=== PATIENT | female | born 1995 | race Caucasian/White ===

== ENCOUNTER 2018-08-18 19:36 | Emergency (ER) | payer SELFPAY ==
[~2018-08-18] VITALS: Ht 167.6 cm; Wt 98.0 kg
[2018-08-18] MEDS ORDERED: ALBUTEROL SUL0.083 % IN (21:36)
[2018-08-18] MEDS ORDERED: COMBIVENT RESPIMAT IN (21:36)
[2018-08-18 21:50] VITALS: BP 128/77
== END 2018-08-18 22:00 | disposition home or self-care (01) | DRG 203 ==
LOC: ED 19:36
DX: J45.909 Unspecified asthma, uncomplicated (principal); F17.200 Nicotine dependence, unspecified, uncomplicated; R06.02 Shortness of breath; R05 Cough

== ENCOUNTER 2018-08-31 07:44 | Emergency (ER) | payer MEDICARE ==
[~2018-08-31] VITALS: Ht 167.6 cm; Wt 92.0 kg
[~2018-08-31 07:44] MED LIST: ALBUTEROL SUL0.083 % IN; COMBIVENT RESPIMAT IN
[2018-08-31 08:16] LABS: HEMATOCRIT 47.1 % (37.0-47.0); HEMOGLOBIN 15.1 g/dl (12.0-16.0); IMMATURE GRANULOCYTES 0.4 % (0.0-5.0); MEAN CELL VOLUME 93.3 fL CALC (80.0-100.0); MEAN CORPUSCULAR HGB 29.9 pG CALC (26.0-32.0); MEAN CORPUSCULAR HGB CONC 32.1 g/L CALC (32.0-36.0); NEUT# 11.43 thou/uL (2.00-7.15); RED BLOOD COUNT 5.05 mill/uL (4.20-5.60); RED CELL DISTRI WIDTH 12.7 % (11.5-15.5)
[2018-08-31 08:40] LABS: HCG SERUM/URINE (NEG/POS) NEGATIVE (NEGATIVE)
[2018-08-31 08:44] LABS: ALBUMIN 4.6 g/dL (3.2-5.0); ALKALINE PHOSPHATASE 110 u/l (38-126); ANION GAP 17 (6-22 (CALC)); BILIRUBIN, TOTAL 0.5 mg/dL (0.0-1.4); BUN 9 mg/dL (7-17); BUN/CREATININE RATIO 11 (12-20 (CALC)); CARBON DIOXIDE 24 mmol/l (22-30); CHLORIDE 104 mmol/l (95-108); CREATININE 0.8 mg/dL (0.5-1.0); GFR > 60 ML/MIN (>=60 (CALC)); GFR FOR AFR.AMER. > 60 ML/MIN (>=60 (CALC)); POTASSIUM 4.4 mmol/l (3.5-5.1); SGOT/AST 32 u/l (14-36); SODIUM 141 mmol/l (137-146); TOTAL PROTEIN 8.3 g/dL (6.3-8.2)
[2018-08-31] MEDS ORDERED: PREDNISONE50 MG PO (09:32)
[2018-08-31] MEDS ORDERED: ALBUTEROL SUL0.083 % IN (09:32)
[2018-08-31] MEDS ORDERED: LEVAQUIN750 MG PO (09:32)
[2018-08-31 10:03] VITALS: BP 122/67
== END 2018-08-31 10:03 | disposition home or self-care (01) ==
LOC: ED 07:44
PROVIDERS: Family Medicine
DX: J18.9 Pneumonia, unspecified organism (principal); B27.90 Infectious mononucleosis, unspecified without complication; J45.901 Unspecified asthma with (acute) exacerbation; F17.200 Nicotine dependence, unspecified, uncomplicated

== ENCOUNTER 2018-09-20 12:19 | Emergency (ER) | payer MEDICARE ==
[~2018-09-20] VITALS: Ht 167.6 cm; Wt 100.0 kg
[~2018-09-20 12:19] MED LIST changes: +LEVAQUIN750 MG PO; +PREDNISONE50 MG PO
[2018-09-20 13:01] LABS: HEMATOCRIT 47.3 % (37.0-47.0); HEMOGLOBIN 15.2 g/dl (12.0-16.0); IMMATURE GRANULOCYTES 0.3 % (0.0-5.0); MEAN CELL VOLUME 93.7 fL CALC (80.0-100.0); MEAN CORPUSCULAR HGB 30.1 pG CALC (26.0-32.0); MEAN CORPUSCULAR HGB CONC 32.1 g/L CALC (32.0-36.0); NEUT# 9.59 thou/uL (2.00-7.15); RED BLOOD COUNT 5.05 mill/uL (4.20-5.60); RED CELL DISTRI WIDTH 12.7 % (11.5-15.5)
[2018-09-20 13:28] LABS: ALBUMIN 4.6 g/dL (3.2-5.0); ALKALINE PHOSPHATASE 124 u/l (38-126); ANION GAP 15 (6-22 (CALC)); BILIRUBIN, TOTAL 0.5 mg/dL (0.0-1.4); BUN 7 mg/dL (7-17); BUN/CREATININE RATIO 9 (12-20 (CALC)); CARBON DIOXIDE 24 mmol/l (22-30); CHLORIDE 107 mmol/l (95-108); CREATININE 0.7 mg/dL (0.5-1.0); GFR > 60 ML/MIN (>=60 (CALC)); GFR FOR AFR.AMER. > 60 ML/MIN (>=60 (CALC)); POTASSIUM 4.3 mmol/l (3.5-5.1); SGOT/AST 28 u/l (14-36); SODIUM 142 mmol/l (137-146); TOTAL PROTEIN 8.5 g/dL (6.3-8.2)
[2018-09-20 15:23] LABS: BARBITURATES NEGATIVE (NEGATIVE); COCAINE NEGATIVE (NEGATIVE); METHADONE NEGATIVE (NEGATIVE); OXCYCODONE NEGATIVE (NEGATIVE); TETRAHYDROCANNABIONOL NEGATIVE (NEGATIVE); TRICYLIC ANTIDEPRESSANTS NEGATIVE (NEGATIVE)
[2018-09-20] MEDS ORDERED: ALBUTEROL SUL0.083 % IN (17:05)
[2018-09-20] MEDS ORDERED: NIFEDIPINE30 MG PO (17:06)
[2018-09-20 17:49] VITALS: BP 117/60
[2018-09-20] MEDS ORDERED: MEDDOSEPAK PO (18:24)
[2018-09-20] MEDS ORDERED: ZITHROMAX250 MG PO (18:24)
== END 2018-09-20 18:25 | disposition left against medical advice (07) ==
LOC: ED 12:19
PROVIDERS: Emergency Medicine
DX: J45.901 Unspecified asthma with (acute) exacerbation (principal); J06.9 Acute upper respiratory infection, unspecified; Z91.19 Patient's noncompliance with other medical treatment and regimen; R91.8 Other nonspecific abnormal finding of lung field; R00.0 Tachycardia, unspecified; R06.02 Shortness of breath
CPT/HCPCS: J3475; Q9967

== ENCOUNTER 2018-09-30 02:09 | Emergency (ER) | payer MEDICARE ==
[~2018-09-30] VITALS: Ht 167.6 cm; Wt 95.0 kg
[~2018-09-30 02:09] MED LIST changes: +MEDDOSEPAK PO; +NIFEDIPINE30 MG PO; +ZITHROMAX250 MG PO
[2018-09-30 02:36] LABS: HEMATOCRIT 44.3 % (37.0-47.0); IMMATURE GRANULOCYTES 0.8 % (0.0-5.0); MEAN CELL VOLUME 94.9 fL CALC (80.0-100.0); MEAN CORPUSCULAR HGB CONC 31.6 g/L CALC (32.0-36.0); RED BLOOD COUNT 4.67 mill/uL (4.20-5.60)
[2018-09-30 02:50] LABS: ALBUMIN 4.4 g/dL (3.2-5.0); ALKALINE PHOSPHATASE 85 u/l (38-126); ANION GAP 23 (6-22 (CALC)); BILIRUBIN, TOTAL 0.3 mg/dL (0.0-1.4); BUN 9 mg/dL (7-17); BUN/CREATININE RATIO 11 (12-20 (CALC)); CARBON DIOXIDE 19 mmol/l (22-30); CHLORIDE 107 mmol/l (95-108); CREATININE 0.8 mg/dL (0.5-1.0); GFR > 60 ML/MIN (>=60 (CALC)); GFR FOR AFR.AMER. > 60 ML/MIN (>=60 (CALC)); POTASSIUM 4.4 mmol/l (3.5-5.1); SGOT/AST 36 u/l (14-36); SODIUM 144 mmol/l (137-146); TOTAL PROTEIN 7.9 g/dL (6.3-8.2)
[2018-09-30 02:51] LABS: ETHYL ALCOHOL 0 mg/dl (0-30)
[2018-09-30 02:59] LABS: MYOGLOBIN 163 ng/mL (0 - 62)
[2018-09-30 03:02] LABS: PROTHROMBIN TIME 10.5 SECONDS (9.0-12.5)
[2018-09-30 03:04] LABS: BAND 2 % (0-8); MANUAL DIFFERENTIAL YES; PLATELET COUNT 445 thou/uL (130-400)
[2018-09-30 03:05] LABS: PLATELET ESTIMATE SLIGHT INCREASE
[2018-09-30 05:16] LABS: URINE BILIRUBIN - DIPSTICK NEGATIVE (NEGATIVE); URINE BLOOD DIPSTICK NEGATIVE (NEGATIVE); URINE COLOR YELLOW; URINE GLUCOSE - DIPSTICK NEGATIVE (NEGATIVE); URINE KETONE NEGATIVE (NEGATIVE); URINE LEUK ESTERASE NEGATIVE (NEGATIVE); URINE NITRITE - DIPSTICK NEGATIVE (Negative); URINE PROTEIN - DIPSTICK NEGATIVE (NEG-TRACE); URINE SPECIFIC GRAVITY 1.015; URINE UROBILINOGEN - DIPSTICK 0.2 E.U./dL (0.2)
[2018-09-30 05:36] LABS: BARBITURATES NEGATIVE (NEGATIVE); COCAINE NEGATIVE (NEGATIVE); METHADONE NEGATIVE (NEGATIVE); OXCYCODONE NEGATIVE (NEGATIVE); TETRAHYDROCANNABIONOL NEGATIVE (NEGATIVE); TRICYLIC ANTIDEPRESSANTS NEGATIVE (NEGATIVE)
[2018-09-30 05:46] LABS: URINE RBC 0-2 RBC/hpf (0-5); URINE SQUAMOUS EPITHELIAL CELL RARE EPI/hpf (0-FEW); URINE WBC 0-2 WBC/hpf (0-5)
[2018-09-30 07:12] VITALS: BP 104/72
== END 2018-09-30 06:10 | disposition short-term general hospital (02) ==
LOC: ED 02:09 → EDBD 02:09 → ED 02:09
PROVIDERS: Emergency Medicine
PROC: 0T9B70Z Drainage of Bladder with Drainage Device, Via Natural or Artificial Opening (ICD-10-PCS; principal; 2018-09-30)
DX: R41.82 Altered mental status, unspecified (principal); D72.829 Elevated white blood cell count, unspecified; E87.2 Acidosis; J45.909 Unspecified asthma, uncomplicated; R06.00 Dyspnea, unspecified
CPT/HCPCS: J2060

== ENCOUNTER 2018-10-10 17:49 | Emergency (ER) | payer MEDICARE ==
[~2018-10-10] VITALS: Ht 167.6 cm; Wt 109.0 kg
[2018-10-10 18:18] LABS: HEMATOCRIT 45.3 % (37.0-47.0); HEMOGLOBIN 14.7 g/dl (12.0-16.0); IMMATURE GRANULOCYTES 0.3 % (0.0-5.0); MEAN CELL VOLUME 92.6 fL CALC (80.0-100.0); MEAN CORPUSCULAR HGB 30.1 pG CALC (26.0-32.0); MEAN CORPUSCULAR HGB CONC 32.5 g/L CALC (32.0-36.0); NEUT# 7.24 thou/uL (2.00-7.15); RED BLOOD COUNT 4.89 mill/uL (4.20-5.60); RED CELL DISTRI WIDTH 13.1 % (11.5-15.5)
[2018-10-10 18:29] LABS: ANION GAP 16 (6-22 (CALC)); BUN 15 mg/dL (7-17); BUN/CREATININE RATIO 21 (12-20 (CALC)); CARBON DIOXIDE 22 mmol/l (22-30); CHLORIDE 105 mmol/l (95-108); CREATININE 0.7 mg/dL (0.5-1.0); GFR > 60 ML/MIN (>=60 (CALC)); GFR FOR AFR.AMER. > 60 ML/MIN (>=60 (CALC)); POTASSIUM 4.1 mmol/l (3.5-5.1); SODIUM 139 mmol/l (137-146)
[2018-10-10] MEDS ORDERED: PROAIR HFA108 MCG/AC PO (18:47)
[2018-10-10] MEDS ORDERED: DUONEB IN (18:47)
[2018-10-10] MEDS ORDERED: PREDNISONE50 MG PO (18:48)
[2018-10-10 19:00] VITALS: BP 129/74
== END 2018-10-10 19:16 | disposition home or self-care (01) ==
LOC: ED 17:49
PROVIDERS: Family Medicine
DX: J45.901 Unspecified asthma with (acute) exacerbation (principal); R06.02 Shortness of breath; R05 Cough; R06.82 Tachypnea, not elsewhere classified

== ENCOUNTER 2018-10-14 18:12 | Emergency (ER) | payer MEDICARE ==
[~2018-10-14] VITALS: Ht 167.6 cm; Wt 109.1 kg
[~2018-10-14 18:12] MED LIST changes: +DUONEB IN; +PROAIR HFA108 MCG/AC PO
[2018-10-14 18:54] LABS: HEMATOCRIT 45.5 % (37.0-47.0); HEMOGLOBIN 14.8 g/dl (12.0-16.0); IMMATURE GRANULOCYTES 0.3 % (0.0-5.0); MEAN CELL VOLUME 91.7 fL CALC (80.0-100.0); MEAN CORPUSCULAR HGB 29.8 pG CALC (26.0-32.0); MEAN CORPUSCULAR HGB CONC 32.5 g/L CALC (32.0-36.0); NEUT# 9.25 thou/uL (2.00-7.15); RED BLOOD COUNT 4.96 mill/uL (4.20-5.60)
[2018-10-14 19:20] VITALS: BP 137/60
[2018-10-14 19:24] LABS: URINE BILIRUBIN - DIPSTICK NEGATIVE (NEGATIVE); URINE BLOOD DIPSTICK LARGE (NEGATIVE); URINE COLOR YELLOW; URINE GLUCOSE - DIPSTICK NEGATIVE (NEGATIVE); URINE KETONE NEGATIVE (NEGATIVE); URINE LEUK ESTERASE TRACE (NEGATIVE); URINE NITRITE - DIPSTICK NEGATIVE (Negative); URINE PROTEIN - DIPSTICK TRACE mg/dL (NEG-TRACE); URINE SPECIFIC GRAVITY >=1.030; URINE UROBILINOGEN - DIPSTICK 0.2 E.U./dL (0.2)
[2018-10-14 19:25] LABS: BARBITURATES NEGATIVE (NEGATIVE); COCAINE NEGATIVE (NEGATIVE); METHADONE NEGATIVE (NEGATIVE); OXCYCODONE NEGATIVE (NEGATIVE); TETRAHYDROCANNABIONOL NEGATIVE (NEGATIVE); TRICYLIC ANTIDEPRESSANTS NEGATIVE (NEGATIVE)
[2018-10-14 19:29] LABS: ALBUMIN 4.3 g/dL (3.2-5.0); ALKALINE PHOSPHATASE 91 u/l (38-126); ANION GAP 16 (6-22 (CALC)); BILIRUBIN, TOTAL 0.5 mg/dL (0.0-1.4); BUN 10 mg/dL (7-17); BUN/CREATININE RATIO 16 (12-20 (CALC)); CARBON DIOXIDE 21 mmol/l (22-30); CHLORIDE 107 mmol/l (95-108); CREATININE 0.6 mg/dL (0.5-1.0); GFR > 60 ML/MIN (>=60 (CALC)); GFR FOR AFR.AMER. > 60 ML/MIN (>=60 (CALC)); POTASSIUM 4.3 mmol/l (3.5-5.1); SGOT/AST 22 u/l (14-36); SODIUM 140 mmol/l (137-146)
[2018-10-14 19:42] LABS: URINE BACTERIA FEW hpf; URINE RBC TNTC RBC/hpf (0-5); URINE SQUAMOUS EPITHELIAL CELL FEW EPI/hpf (0-FEW)
== END 2018-10-14 19:20 | disposition left against medical advice (07) ==
LOC: ED 18:12
DX: J45.901 Unspecified asthma with (acute) exacerbation (principal); Z91.19 Patient's noncompliance with other medical treatment and regimen; R06.02 Shortness of breath; F17.200 Nicotine dependence, unspecified, uncomplicated; R00.0 Tachycardia, unspecified
CPT/HCPCS: J3475

== ENCOUNTER 2018-12-14 19:08 | Emergency (ER) | payer MEDICARE, MEDICAID ==
[~2018-12-14] VITALS: Ht 167.6 cm; Wt 104.0 kg
[2018-12-14] MEDS ORDERED: IBUPROFEN600 MG PO (19:28)
[2018-12-14] MEDS ORDERED: TRAMADOL HCL50 MG PO (19:28)
[2018-12-14] MEDS ORDERED: VALTREX1 GM PO (19:28)
[2018-12-14 19:47] VITALS: BP 158/82
== END 2018-12-14 19:47 | disposition home or self-care (01) ==
LOC: ED 19:08
DX: A60.00 Herpesviral infection of urogenital system, unspecified (principal)

== ENCOUNTER 2019-02-28 17:09 | Emergency (ER) | payer MEDICARE, MEDICAID ==
[~2019-02-28] VITALS: Ht 167.6 cm; Wt 109.0 kg
[~2019-02-28 17:09] MED LIST changes: +IBUPROFEN600 MG PO; +TRAMADOL HCL50 MG PO; +VALTREX1 GM PO
[2019-02-28] MEDS ORDERED: SYMBICORT1 AE1 IN (17:47)
[2019-02-28] MEDS ORDERED: ADVAIR DISK1 INH (17:48)
[2019-02-28 18:53] VITALS: BP 108/63
== END 2019-02-28 18:53 | disposition home or self-care (01) ==
LOC: ED 17:09
DX: M79.671 Pain in right foot (principal)

== ENCOUNTER 2019-03-06 15:04 | Emergency (ER) | payer MEDICARE, MEDICAID ==
[~2019-03-06] VITALS: Ht 167.6 cm; Wt 110.0 kg
[~2019-03-06 15:04] MED LIST changes: +ADVAIR DISK1 INH; +SYMBICORT1 AE1 IN
[2019-03-06] MEDS ORDERED: ELIMITE52 TOP (15:35)
[2019-03-06] MEDS ORDERED: DOXYCYCL HYC100 MG PO (15:35)
[2019-03-06 15:42] VITALS: BP 122/66
== END 2019-03-06 15:46 | disposition home or self-care (01) ==
LOC: ED 15:04
DX: B86 Scabies (principal)

== ENCOUNTER 2019-06-08 20:11 | Emergency (ER) | payer MEDICARE, MEDICAID ==
[~2019-06-08] VITALS: Ht 167.6 cm; Wt 109.0 kg
[~2019-06-08 20:11] MED LIST changes: +DOXYCYCL HYC100 MG PO; +ELIMITE52 TOP
[2019-06-08 21:31] LABS: IMMATURE GRANULOCYTES 0.5 % (0.0-5.0); MEAN CELL VOLUME 92.4 fL CALC (80.0-100.0); MEAN CORPUSCULAR HGB 30.8 pG CALC (26.0-32.0); MEAN CORPUSCULAR HGB CONC 33.3 g/L CALC (32.0-36.0); NEUT# 13.89 thou/uL (2.00-7.15); RED BLOOD COUNT 4.22 mill/uL (4.20-5.60); RED CELL DISTRI WIDTH 12.2 % (11.5-15.5)
[2019-06-08 21:32] LABS: URINE BILIRUBIN - DIPSTICK NEGATIVE (NEGATIVE); URINE BLOOD DIPSTICK NEGATIVE (NEGATIVE); URINE COLOR YELLOW; URINE GLUCOSE - DIPSTICK NEGATIVE (NEGATIVE); URINE KETONE NEGATIVE (NEGATIVE); URINE LEUK ESTERASE NEGATIVE (NEGATIVE); URINE NITRITE - DIPSTICK NEGATIVE (Negative); URINE PROTEIN - DIPSTICK NEGATIVE (NEG-TRACE); URINE UROBILINOGEN - DIPSTICK 0.2 E.U./dL (0.2)
[2019-06-08 22:00] VITALS: BP 122/84
[2019-06-08 22:15] LABS: ALBUMIN 3.7 g/dL (3.2-5.0); ANION GAP 14 (6-22 (CALC)); BILIRUBIN, TOTAL 0.3 mg/dL (0.0-1.4); BUN 9 mg/dL (7-17); BUN/CREATININE RATIO 14 (12-20 (CALC)); CARBON DIOXIDE 24 mmol/l (22-30); CHLORIDE 100 mmol/l (95-108); CREATININE 0.7 mg/dL (0.5-1.0); GFR > 60 ML/MIN (>=60 (CALC)); GFR FOR AFR.AMER. > 60 ML/MIN (>=60 (CALC)); POTASSIUM 4.2 mmol/l (3.5-5.1); SGOT/AST 29 u/l (14-36); SODIUM 133 mmol/l (137-146); TOTAL PROTEIN 8.3 g/dL (6.3-8.2)
[2019-06-08 22:16] LABS: ALKALINE PHOSPHATASE 213 u/l (38-126)
[2019-06-08] MEDS ORDERED: PRENATAL1 TA1 PO (22:28)
[2019-06-08] MEDS ORDERED: KEFLEX500 M1 PO (22:28)
== END 2019-06-08 23:07 | disposition home or self-care (01) ==
LOC: ED 20:11
PROVIDERS: Emergency Medicine
DX: R21 Rash and other nonspecific skin eruption (principal); D72.829 Elevated white blood cell count, unspecified; Z32.01 Encounter for pregnancy test, result positive

== ENCOUNTER 2019-08-04 | Emergency (ER) | payer MEDICARE, MEDICAID ==
[~2019-08-04] MED LIST changes: +KEFLEX500 M1 PO; +PRENATAL1 TA1 PO
[2019-08-04 23:34] LABS: URINE BILIRUBIN - DIPSTICK NEGATIVE (NEGATIVE); URINE BLOOD DIPSTICK NEGATIVE (NEGATIVE); URINE CLARITY CLEAR; URINE COLOR YELLOW; URINE GLUCOSE - DIPSTICK NEGATIVE (NEGATIVE); URINE KETONE NEGATIVE (NEGATIVE); URINE LEUK ESTERASE SMALL (Negative); URINE NITRITE - DIPSTICK NEGATIVE (Negative); URINE UROBILINOGEN - DIPSTICK 0.2 E.U./dL (0.2)
[2019-08-04 23:44] LABS: URINE PROTEIN - DIPSTICK NEGATIVE (NEG-TRACE)
[2019-08-04 23:45] LABS: URINE BACTERIA MODERATE hpf; URINE EPITHELIAL CELLS FEW EPI/hpf (0-FEW)
[2019-08-05] MEDS ORDERED: CIPROFLOXACIN500 M1 PO (00:20)
[2019-08-05] MEDS ORDERED: PYRIDIUM200 MG PO (00:20)
== END 2019-08-05 00:50 | disposition home or self-care (01) ==
PROVIDERS: Emergency Medicine
DX: N39.0 Urinary tract infection, site not specified (principal); F17.210 Nicotine dependence, cigarettes, uncomplicated

== ENCOUNTER 2019-09-06 | Emergency (ER) | payer MEDICARE, MEDICAID ==
[~2019-09-06] MED LIST changes: +CIPROFLOXACIN500 M1 PO; +PYRIDIUM200 MG PO
== END 2019-09-06 23:50 | disposition home or self-care (01) ==
DX: S02.2XXA Fracture of nasal bones, initial encounter for closed fracture (principal); F17.210 Nicotine dependence, cigarettes, uncomplicated; Y04.0XXA Assault by unarmed brawl or fight, initial encounter; Y92.89 Other specified places as the place of occurrence of the external cause

== ENCOUNTER 2019-10-06 | Emergency (ER) | payer MEDICARE, MEDICAID ==
[2019-10-06 15:38] LABS: URINE BILIRUBIN - DIPSTICK NEGATIVE (NEGATIVE); URINE BLOOD DIPSTICK TRACE-INTACT (NEGATIVE); URINE COLOR YELLOW; URINE GLUCOSE - DIPSTICK NEGATIVE (NEGATIVE); URINE KETONE TRACE mg/dL (NEGATIVE); URINE LEUK ESTERASE MODERATE (Negative); URINE NITRITE - DIPSTICK NEGATIVE (Negative); URINE PH 5.5 (4.5-8.0); URINE PROTEIN - DIPSTICK TRACE mg/dL (NEG-TRACE); URINE SPECIFIC GRAVITY 1.025; URINE UROBILINOGEN - DIPSTICK 0.2 E.U./dL (0.2)
[2019-10-06 15:41] LABS: URINE CLARITY CLOUDY
[2019-10-06 15:41] LABS: HEMATOCRIT 42.1 % (37.0-47.0); HEMOGLOBIN 13.5 g/dl (12.0-16.0); IMMATURE GRANULOCYTES 0.2 % (0.0-5.0); MEAN CELL VOLUME 93.3 fL CALC (80.0-100.0); MEAN CORPUSCULAR HGB 29.9 pG CALC (26.0-32.0); MEAN CORPUSCULAR HGB CONC 32.1 g/L CALC (32.0-36.0); NEUT# 6.58 thou/uL (2.00-7.15); RED BLOOD COUNT 4.51 mill/uL (4.20-5.60)
[2019-10-06 15:47] LABS: URINE BACTERIA FEW hpf; URINE SQUAMOUS EPITHELIAL CELL MANY EPI/hpf (0-FEW); URINE WBC TNTC WBC/hpf (0-5)
[2019-10-06 15:48] LABS: ALBUMIN 4.3 g/dL (3.2-5.0); BUN 12 mg/dL (7-17); BUN/CREATININE RATIO 16 (12-20 (CALC)); CARBON DIOXIDE 23 mmol/l (22-30); CHLORIDE 109 mmol/l (95-108); CREATININE 0.8 mg/dL (0.5-1.0); GFR > 60 ML/MIN (>=60 (CALC)); GFR FOR AFR.AMER. > 60 ML/MIN (>=60 (CALC)); POTASSIUM 4.3 mmol/l (3.5-5.1); SGOT/AST 26 u/l (14-36); TOTAL PROTEIN 8.4 g/dL (6.3-8.2)
[2019-10-06 15:55] LABS: ALKALINE PHOSPHATASE 69 u/l (38-126); ANION GAP 15 (6-22 (CALC)); BILIRUBIN, TOTAL 0.6 mg/dL (0.0-1.4); SODIUM 143 mmol/l (137-146)
[2019-10-06 16:10] LABS: ACT PARTIAL THROMBO TIME 25.9 SECONDS (20.0-32.5); PROTHROMBIN TIME 10.6 SECONDS (9.0-12.5)
[2019-10-06] MEDS ORDERED: KEFLEX500 M1 PO ×2 (19:35)
[2019-10-06] MEDS ORDERED: FLEXERIL PO (19:37)
== END 2019-10-06 19:56 | disposition home or self-care (01) ==
DX: S00.33XA Contusion of nose, initial encounter (principal); S00.83XA Contusion of other part of head, initial encounter; R10.2 Pelvic and perineal pain; R07.81 Pleurodynia; N39.0 Urinary tract infection, site not specified; F17.200 Nicotine dependence, unspecified, uncomplicated; V18.0XXA Pedal cycle driver injured in noncollision transport accident in nontraffic accident, initial encounter; Y93.55 Activity, bike riding

== ENCOUNTER 2019-10-16 | Emergency (ER) | payer MEDICARE, MEDICAID ==
[~2019-10-16] MED LIST changes: +FLEXERIL PO
== END 2019-10-16 19:47 | disposition home or self-care (01) ==
DX: S00.11XA Contusion of right eyelid and periocular area, initial encounter (principal); S06.9X9A Unspecified intracranial injury with loss of consciousness of unspecified duration, initial encounter; S80.02XA Contusion of left knee, initial encounter; S80.01XA Contusion of right knee, initial encounter; S80.12XA Contusion of left lower leg, initial encounter; S80.11XA Contusion of right lower leg, initial encounter; S40.012A Contusion of left shoulder, initial encounter; S40.011A Contusion of right shoulder, initial encounter; S70.01XA Contusion of right hip, initial encounter; S40.022A Contusion of left upper arm, initial encounter; S00.432A Contusion of left ear, initial encounter; F17.200 Nicotine dependence, unspecified, uncomplicated; Y04.2XXA Assault by strike against or bumped into by another person, initial encounter

== ENCOUNTER 2019-10-21 | Emergency (ER) | payer MEDICARE, MEDICAID | END 2019-10-21 03:55 | disposition home or self-care (01) | PROC: 0HQ2XZZ Repair Right Ear Skin, External Approach (ICD-10-PCS; principal; 2019-10-21) | DX: S01.311A Laceration without foreign body of right ear, initial encounter (principal); F17.200 Nicotine dependence, unspecified, uncomplicated; Y04.0XXA Assault by unarmed brawl or fight, initial encounter; Y92.009 Unspecified place in unspecified non-institutional (private) residence as the place of occurrence of the external cause ==

== ENCOUNTER 2020-03-20 06:30 | Emergency (ER) | payer MEDICARE, MEDICAID ==
[~2020-03-20] VITALS: Ht 167.6 cm; Wt 97.7 kg
[2020-03-20] MEDS ORDERED: VENTOLIN H108 MCG/AC (06:41)
[2020-03-20] MEDS ORDERED: HYDROCO/APAP1 TA9 PO ×2 (08:17)
[2020-03-20 08:27] VITALS: BP 116/71
== END 2020-03-20 09:09 | disposition home or self-care (01) ==
LOC: ED 06:30
PROC: 2W3QX1Z Immobilization of Right Lower Leg using Splint (ICD-10-PCS; principal; 2020-03-20)
DX: S92.344A Nondisplaced fracture of fourth metatarsal bone, right foot, initial encounter for closed fracture (principal); J45.909 Unspecified asthma, uncomplicated; W01.0XXA Fall on same level from slipping, tripping and stumbling without subsequent striking against object, initial encounter; Y92.009 Unspecified place in unspecified non-institutional (private) residence as the place of occurrence of the external cause

== ENCOUNTER 2020-04-07 15:40 | Emergency (ER) | payer MEDICARE, MEDICAID ==
[~2020-04-07] VITALS: Ht 167.6 cm; Wt 100.0 kg
[~2020-04-07 15:40] MED LIST changes: +HYDROCO/APAP1 TA9 PO; +VENTOLIN H108 MCG/AC
[2020-04-07] MEDS ORDERED: ALBUTEROL SUL0.083 % IN (16:20)
[2020-04-07] MEDS ORDERED: VENTOLIN HFA IN ×2 (16:20)
[2020-04-07] MEDS ORDERED: PRENATAL MULTI1 CAP PO ×2 (16:50)
[2020-04-07 16:56] VITALS: BP 97/60
== END 2020-04-07 16:56 | disposition home or self-care (01) ==
LOC: ED 15:40
DX: O99.519 Diseases of the respiratory system complicating pregnancy, unspecified trimester (principal); J45.901 Unspecified asthma with (acute) exacerbation; O99.330 Smoking (tobacco) complicating pregnancy, unspecified trimester; F17.200 Nicotine dependence, unspecified, uncomplicated; T48.6X6A Underdosing of antiasthmatics, initial encounter; Z91.128 Patient's intentional underdosing of medication regimen for other reason; Z3A.00 Weeks of gestation of pregnancy not specified

== ENCOUNTER 2020-04-10 17:35 | Emergency (ER) | payer MEDICARE, MEDICAID ==
[~2020-04-10] VITALS: Ht 167.6 cm; Wt 90.0 kg
[~2020-04-10 17:35] MED LIST changes: +PRENATAL MULTI1 CAP PO; +VENTOLIN HFA IN
[2020-04-10 18:14] LABS: HEMATOCRIT 41.2 % (37.0-47.0); HEMOGLOBIN 13.1 g/dl (12.0-16.0); IMMATURE GRANULOCYTES 0.5 % (0.0-5.0); MEAN CELL VOLUME 93.8 fL CALC (80.0-100.0); MEAN CORPUSCULAR HGB 29.8 pG CALC (26.0-32.0); MEAN CORPUSCULAR HGB CONC 31.8 g/dL CAL (32.0-36.0); NEUT# 12.09 thou/uL (2.00-7.15); RED BLOOD COUNT 4.39 mill/uL (4.20-5.60); RED CELL DISTRI WIDTH 13.2 % (11.5-15.5)
[2020-04-10 18:32] LABS: ANION GAP 14 (6-22 (CALC)); BUN 7 mg/dL (7-17); BUN/CREATININE RATIO 11 (12-20 (CALC)); CARBON DIOXIDE 23 mmol/l (22-30); CHLORIDE 102 mmol/l (95-108); CREATININE 0.6 mg/dL (0.5-1.0); GFR > 60 ML/MIN (>=60 (CALC)); GFR FOR AFR.AMER. > 60 ML/MIN (>=60 (CALC)); POTASSIUM 3.6 mmol/l (3.5-5.1)
[2020-04-10 18:33] LABS: SODIUM 135 mmol/l (137-146)
[2020-04-10] MEDS ORDERED: DECADRON4 MG PO ×2 (18:56)
[2020-04-10] MEDS ORDERED: ZPAK PO (18:56)
[2020-04-10 19:00] VITALS: BP 122/84
== END 2020-04-10 19:20 | disposition home or self-care (01) ==
LOC: ED 17:35
PROVIDERS: Family Medicine
DX: O99.519 Diseases of the respiratory system complicating pregnancy, unspecified trimester (principal); J45.901 Unspecified asthma with (acute) exacerbation; J06.9 Acute upper respiratory infection, unspecified; Z3A.00 Weeks of gestation of pregnancy not specified; Z20.828 Contact with and (suspected) exposure to other viral communicable diseases

== ENCOUNTER 2020-04-30 22:42 | Emergency (ER) | payer MEDICARE, MEDICAID ==
[~2020-04-30] VITALS: Ht 167.6 cm; Wt 90.0 kg
[~2020-04-30 22:42] MED LIST changes: +DECADRON4 MG PO; +ZPAK PO
[2020-04-30 23:15] LABS: IMMATURE GRANULOCYTES 0.4 % (0.0-5.0); MEAN CELL VOLUME 94.1 fL CALC (80.0-100.0); MEAN CORPUSCULAR HGB 31.3 pG CALC (26.0-32.0); MEAN CORPUSCULAR HGB CONC 33.3 g/dL CAL (32.0-36.0); NEUT# 14.61 thou/uL (2.00-7.15); RED BLOOD COUNT 5.05 mill/uL (4.20-5.60); RED CELL DISTRI WIDTH 13.1 % (11.5-15.5)
[2020-04-30 23:16] LABS: URINE BLOOD DIPSTICK NEGATIVE (NEGATIVE); URINE COLOR YELLOW; URINE GLUCOSE - DIPSTICK NEGATIVE (NEGATIVE); URINE KETONE NEGATIVE (NEGATIVE); URINE LEUK ESTERASE NEGATIVE (NEGATIVE); URINE NITRITE - DIPSTICK NEGATIVE (Negative); URINE PH 5.5 (4.5-8.0); URINE PROTEIN - DIPSTICK NEGATIVE (NEG-TRACE); URINE SPECIFIC GRAVITY >=1.030; URINE UROBILINOGEN - DIPSTICK 0.2 E.U./dL (0.2)
[2020-04-30 23:18] LABS: HEMATOCRIT 47.5 % (37.0-47.0); HEMOGLOBIN 15.8 g/dl (12.0-16.0)
[2020-04-30 23:21] LABS: URINE BILIRUBIN - DIPSTICK SMALL (NEGATIVE)
[2020-04-30 23:29] LABS: ALBUMIN 4.4 g/dL (3.2-5.0); ANION GAP 15 (6-22 (CALC)); BILIRUBIN, TOTAL 0.4 mg/dL (0.0-1.4); BUN 8 mg/dL (7-17); BUN/CREATININE RATIO 12 (12-20 (CALC)); CARBON DIOXIDE 21 mmol/l (22-30); CHLORIDE 104 mmol/l (95-108); CREATININE 0.7 mg/dL (0.5-1.0); GFR > 60 ML/MIN (>=60 (CALC)); GFR FOR AFR.AMER. > 60 ML/MIN (>=60 (CALC)); POTASSIUM 3.6 mmol/l (3.5-5.1); SGOT/AST 45 u/l (14-36); SODIUM 137 mmol/l (137-146); TOTAL PROTEIN 8.8 g/dL (6.3-8.2)
[2020-04-30 23:37] LABS: ALKALINE PHOSPHATASE 154 u/l (38-126)
[2020-05-01 00:12] LABS: BETA-HCG, QUANT(RESULT NUMBER) 62064 mIU/mL
[2020-05-01 01:02] LABS: AMYLASE 87 u/l (30-110); LIPASE 77 u/l (23-300)
[2020-05-01 01:18] VITALS: BP 132/71
== END 2020-05-01 01:21 | disposition home or self-care (01) ==
LOC: ED 22:42
PROVIDERS: Emergency Medicine
DX: O26.891 Other specified pregnancy related conditions, first trimester (principal); R10.9 Unspecified abdominal pain; O99.111 Other diseases of the blood and blood-forming organs and certain disorders involving the immune mechanism complicating pregnancy, first trimester; D72.829 Elevated white blood cell count, unspecified; O99.511 Diseases of the respiratory system complicating pregnancy, first trimester; J45.909 Unspecified asthma, uncomplicated; Z3A.12 12 weeks gestation of pregnancy

== ENCOUNTER 2020-05-03 18:58 | Emergency (ER) | payer MEDICARE, MEDICAID ==
[~2020-05-03] VITALS: Ht 167.6 cm; Wt 95.0 kg
[2020-05-03 19:47] LABS: HEMATOCRIT 43.2 % (37.0-47.0); HEMOGLOBIN 14.4 g/dl (12.0-16.0); IMMATURE GRANULOCYTES 0.3 % (0.0-5.0); MEAN CELL VOLUME 94.1 fL CALC (80.0-100.0); MEAN CORPUSCULAR HGB 31.4 pG CALC (26.0-32.0); MEAN CORPUSCULAR HGB CONC 33.3 g/dL CAL (32.0-36.0); NEUT# 17.95 thou/uL (2.00-7.15); RED BLOOD COUNT 4.59 mill/uL (4.20-5.60); RED CELL DISTRI WIDTH 13.1 % (11.5-15.5)
[2020-05-03 21:00] VITALS: BP 109/73
[2020-05-03] MEDS ORDERED: SYMBICORT1 AE1 IN (21:03)
[2020-05-03] MEDS ORDERED: PREDNISONE50 MG PO (21:03)
[2020-05-03] MEDS ORDERED: PROAIR HFA108 MCG/AC IN (21:03)
== END 2020-05-03 21:23 | disposition home or self-care (01) ==
LOC: ED 18:58
PROVIDERS: Family Medicine
DX: O99.511 Diseases of the respiratory system complicating pregnancy, first trimester (principal); J45.901 Unspecified asthma with (acute) exacerbation; O99.111 Other diseases of the blood and blood-forming organs and certain disorders involving the immune mechanism complicating pregnancy, first trimester; D72.829 Elevated white blood cell count, unspecified; O99.331 Smoking (tobacco) complicating pregnancy, first trimester; F17.210 Nicotine dependence, cigarettes, uncomplicated; Z3A.00 Weeks of gestation of pregnancy not specified

== ENCOUNTER 2020-05-17 12:48 | Emergency (ER) | payer MEDICARE, MEDICAID ==
[~2020-05-17] VITALS: Ht 167.6 cm; Wt 78.0 kg
[~2020-05-17 12:48] MED LIST changes: +PROAIR HFA108 MCG/AC IN
[2020-05-17 14:36] LABS: URINE BILIRUBIN - DIPSTICK NEGATIVE (NEGATIVE); URINE BLOOD DIPSTICK NEGATIVE (NEGATIVE); URINE COLOR YELLOW; URINE GLUCOSE - DIPSTICK NEGATIVE (NEGATIVE); URINE KETONE NEGATIVE (NEGATIVE); URINE LEUK ESTERASE NEGATIVE (NEGATIVE); URINE NITRITE - DIPSTICK NEGATIVE (Negative); URINE PROTEIN - DIPSTICK NEGATIVE (NEG-TRACE); URINE UROBILINOGEN - DIPSTICK 0.2 E.U./dL (0.2)
[2020-05-17 15:01] VITALS: BP 123/71
== END 2020-05-17 15:12 | disposition home or self-care (01) ==
LOC: ED 12:48
DX: O9A.212 Injury, poisoning and certain other consequences of external causes complicating pregnancy, second trimester (principal); S39.012A Strain of muscle, fascia and tendon of lower back, initial encounter; O99.512 Diseases of the respiratory system complicating pregnancy, second trimester; J45.909 Unspecified asthma, uncomplicated; O99.332 Smoking (tobacco) complicating pregnancy, second trimester; F17.200 Nicotine dependence, unspecified, uncomplicated; X58.XXXA Exposure to other specified factors, initial encounter; Z3A.14 14 weeks gestation of pregnancy

== ENCOUNTER 2020-05-22 17:10 | Emergency (ER) | payer MEDICARE, MEDICAID ==
[~2020-05-22] VITALS: Ht 167.6 cm; Wt 100.0 kg
[2020-05-22 17:32] VITALS: BP 112/75
[2020-05-22] MEDS ORDERED: ZITHROMAX250 MG PO (18:08)
[2020-05-22] MEDS ORDERED: VENTOLIN HFA IN (18:08)
== END 2020-05-22 18:15 | disposition home or self-care (01) ==
LOC: ED 17:10
DX: O99.519 Diseases of the respiratory system complicating pregnancy, unspecified trimester (principal); J06.9 Acute upper respiratory infection, unspecified; J45.909 Unspecified asthma, uncomplicated; O99.330 Smoking (tobacco) complicating pregnancy, unspecified trimester; F17.200 Nicotine dependence, unspecified, uncomplicated; O9A.219 Injury, poisoning and certain other consequences of external causes complicating pregnancy, unspecified trimester; S00.12XA Contusion of left eyelid and periocular area, initial encounter; X58.XXXA Exposure to other specified factors, initial encounter; T48.6X6A Underdosing of antiasthmatics, initial encounter; Z91.128 Patient's intentional underdosing of medication regimen for other reason; Z3A.00 Weeks of gestation of pregnancy not specified; Z20.828 Contact with and (suspected) exposure to other viral communicable diseases

== ENCOUNTER 2020-06-13 20:03 | Emergency (ER) | payer MEDICARE, MEDICAID ==
[~2020-06-13] VITALS: Ht 167.6 cm; Wt 100.0 kg
[2020-06-13 20:53] LABS: HEMATOCRIT 39.8 % (37.0-47.0); HEMOGLOBIN 13.3 g/dl (12.0-16.0); IMMATURE GRANULOCYTES 0.5 % (0.0-5.0); MEAN CELL VOLUME 93.4 fL CALC (80.0-100.0); MEAN CORPUSCULAR HGB 31.2 pG CALC (26.0-32.0); MEAN CORPUSCULAR HGB CONC 33.4 g/dL CAL (32.0-36.0); NEUT# 13.43 thou/uL (2.00-7.15); RED BLOOD COUNT 4.26 mill/uL (4.20-5.60); RED CELL DISTRI WIDTH 11.8 % (11.5-15.5)
[2020-06-13 21:12] LABS: ALBUMIN 3.7 g/dL (3.2-5.0); ALKALINE PHOSPHATASE 120 u/l (38-126); AMYLASE 76 u/l (30-110); ANION GAP 11 (6-22 (CALC)); BILIRUBIN, TOTAL 0.2 mg/dL (0.0-1.4); BUN 11 mg/dL (7-17); BUN/CREATININE RATIO 18 (12-20 (CALC)); CARBON DIOXIDE 21 mmol/l (22-30); CHLORIDE 108 mmol/l (95-108); CREATININE 0.6 mg/dL (0.5-1.0); GFR > 60 ML/MIN (>=60 (CALC)); GFR FOR AFR.AMER. > 60 ML/MIN (>=60 (CALC)); LIPASE 70 u/l (23-300); POTASSIUM 3.6 mmol/l (3.5-5.1); SGOT/AST 28 u/l (14-36); SODIUM 136 mmol/l (137-146); TOTAL PROTEIN 7.5 g/dL (6.3-8.2)
[2020-06-13 22:08] LABS: URINE BILIRUBIN - DIPSTICK NEGATIVE (NEGATIVE); URINE BLOOD DIPSTICK MODERATE (NEGATIVE); URINE COLOR YELLOW; URINE GLUCOSE - DIPSTICK NEGATIVE (NEGATIVE); URINE KETONE NEGATIVE (NEGATIVE); URINE LEUK ESTERASE NEGATIVE (NEGATIVE); URINE NITRITE - DIPSTICK NEGATIVE (Negative); URINE PROTEIN - DIPSTICK NEGATIVE (NEG-TRACE); URINE SPECIFIC GRAVITY >=1.030; URINE UROBILINOGEN - DIPSTICK 0.2 E.U./dL (0.2)
[2020-06-13 22:14] LABS: URINE SQUAMOUS EPITHELIAL CELL FEW EPI/hpf (0-FEW); URINE WBC 0-2 WBC/hpf (0-5)
[2020-06-13] MEDS ORDERED: PERCOGESI1 PO (22:26)
[2020-06-13 22:59] VITALS: BP 111/68
== END 2020-06-13 23:00 | disposition home or self-care (01) ==
LOC: ED 20:03
PROVIDERS: Family Medicine
DX: O9A.212 Injury, poisoning and certain other consequences of external causes complicating pregnancy, second trimester (principal); R10.11 Right upper quadrant pain; Z3A.17 17 weeks gestation of pregnancy; R10.12 Left upper quadrant pain; O99.332 Smoking (tobacco) complicating pregnancy, second trimester; F17.210 Nicotine dependence, cigarettes, uncomplicated; Y00.XXXA Assault by blunt object, initial encounter; Y92.009 Unspecified place in unspecified non-institutional (private) residence as the place of occurrence of the external cause

== ENCOUNTER 2020-06-24 19:26 | Emergency (ER) | payer MEDICARE, MEDICAID ==
[~2020-06-24] VITALS: Ht 167.6 cm; Wt 100.0 kg
[~2020-06-24 19:26] MED LIST changes: +PERCOGESI1 PO
[2020-06-24] MEDS ORDERED: [UNRECOGNIZED DRUG - OTHER] (19:54)
[2020-06-24] MEDS ORDERED: VENTOLIN HFA IN (20:02)
[2020-06-24] MEDS ORDERED: PREDNISONE10 MG PO (20:18)
[2020-06-24 20:30] VITALS: BP 126/81
== END 2020-06-24 20:45 | disposition home or self-care (01) ==
LOC: ED 19:26
DX: O99.512 Diseases of the respiratory system complicating pregnancy, second trimester (principal); J45.901 Unspecified asthma with (acute) exacerbation; O99.332 Smoking (tobacco) complicating pregnancy, second trimester; F17.200 Nicotine dependence, unspecified, uncomplicated; Z3A.20 20 weeks gestation of pregnancy

== ENCOUNTER 2020-08-30 17:53 | Emergency (ER) | payer MEDICARE, MEDICAID ==
[~2020-08-30] VITALS: Ht 167.6 cm; Wt 104.1 kg
[~2020-08-30 17:53] MED LIST changes: +PREDNISONE10 MG PO; +[UNRECOGNIZED DRUG - OTHER]
[2020-08-30 19:00] LABS: HEMOGLOBIN 13.6 g/dl (12.0-16.0); IMMATURE GRANULOCYTES 0.4 % (0.0-5.0); MEAN CELL VOLUME 95.6 fL CALC (80.0-100.0); MEAN CORPUSCULAR HGB 31.7 pG CALC (26.0-32.0); MEAN CORPUSCULAR HGB CONC 33.2 g/dL CAL (32.0-36.0); NEUT# 8.64 thou/uL (2.00-7.15); RED BLOOD COUNT 4.29 mill/uL (4.20-5.60); RED CELL DISTRI WIDTH 12.6 % (11.5-15.5)
[2020-08-30 19:21] LABS: ANION GAP 12 (6-22 (CALC)); BUN 8 mg/dL (7-17); BUN/CREATININE RATIO 13 (12-20 (CALC)); CARBON DIOXIDE 23 mmol/l (22-30); CHLORIDE 104 mmol/l (95-108); CREATININE 0.6 mg/dL (0.5-1.0); GFR > 60 ML/MIN (>=60 (CALC)); GFR FOR AFR.AMER. > 60 ML/MIN (>=60 (CALC)); POTASSIUM 3.7 mmol/l (3.5-5.1); SODIUM 135 mmol/l (137-146)
[2020-08-30] MEDS ORDERED: VENTOLIN HF1 IN (21:05)
[2020-08-30 21:43] VITALS: BP 113/75
== END 2020-08-30 22:05 | disposition home or self-care (01) ==
LOC: ED 17:53
PROVIDERS: Family Medicine
DX: O99.513 Diseases of the respiratory system complicating pregnancy, third trimester (principal); J45.901 Unspecified asthma with (acute) exacerbation; O99.333 Smoking (tobacco) complicating pregnancy, third trimester; F17.210 Nicotine dependence, cigarettes, uncomplicated; T48.6X6A Underdosing of antiasthmatics, initial encounter; Z91.128 Patient's intentional underdosing of medication regimen for other reason; Z3A.30 30 weeks gestation of pregnancy; Z20.822 Contact with and (suspected) exposure to COVID-19
CPT/HCPCS: A4627

== ENCOUNTER 2020-10-06 16:19 | Emergency (ER) | payer MEDICARE, MEDICAID ==
[~2020-10-06] VITALS: Ht 167.6 cm; Wt 104.5 kg
[~2020-10-06 16:19] MED LIST changes: +TAM75CAP PO; +VENTOLIN HF1 IN
[2020-10-06 16:38] LABS: HEMATOCRIT 41.4 % (37.0-47.0); HEMOGLOBIN 13.7 g/dl (12.0-16.0); IMMATURE GRANULOCYTES 0.4 % (0.0-5.0); MEAN CELL VOLUME 94.5 fL CALC (80.0-100.0); MEAN CORPUSCULAR HGB 31.3 pG CALC (26.0-32.0); MEAN CORPUSCULAR HGB CONC 33.1 g/dL CAL (32.0-36.0); NEUT# 11.55 thou/uL (2.00-7.15); RED BLOOD COUNT 4.38 mill/uL (4.20-5.60); RED CELL DISTRI WIDTH 12.2 % (11.5-15.5)
[2020-10-06] MEDS ORDERED: NEBULIZER MED (16:41)
[2020-10-06 17:00] LABS: ALBUMIN 3.9 g/dL (3.2-5.0); ANION GAP 11 (6-22 (CALC)); BUN 5 mg/dL (7-17); BUN/CREATININE RATIO 8 (12-20 (CALC)); CARBON DIOXIDE 23 mmol/l (22-30); CHLORIDE 104 mmol/l (95-108); CREATININE 0.6 mg/dL (0.5-1.0); GFR > 60 ML/MIN (>=60 (CALC)); GFR FOR AFR.AMER. > 60 ML/MIN (>=60 (CALC)); POTASSIUM 4.1 mmol/l (3.5-5.1); SODIUM 134 mmol/l (137-146); TOTAL PROTEIN 8.4 g/dL (6.3-8.2)
[2020-10-06 17:02] LABS: BILIRUBIN, TOTAL 0.7 mg/dL (0.0-1.4); SGOT/AST 52 u/l (14-36)
[2020-10-06 17:03] LABS: ALKALINE PHOSPHATASE 274 u/l (38-126)
[2020-10-06] MEDS ORDERED: PROAIR HFA108 MCG/AC PO (17:52)
[2020-10-06] MEDS ORDERED: DECADRON4 MG PO (17:52)
[2020-10-06] MEDS ORDERED: NEBULIZE2 PO (18:26)
[2020-10-06] MEDS ORDERED: PROVENTIL0.083 % IN (18:26)
[2020-10-06 18:40] VITALS: BP 105/70
== END 2020-10-06 18:45 | disposition left against medical advice (07) ==
LOC: ED 16:19
PROVIDERS: Family Medicine
DX: O99.519 Diseases of the respiratory system complicating pregnancy, unspecified trimester (principal); J45.901 Unspecified asthma with (acute) exacerbation; J96.00 Acute respiratory failure, unspecified whether with hypoxia or hypercapnia; O99.330 Smoking (tobacco) complicating pregnancy, unspecified trimester; F17.200 Nicotine dependence, unspecified, uncomplicated; O99.210 Obesity complicating pregnancy, unspecified trimester; E66.3 Overweight; Z3A.00 Weeks of gestation of pregnancy not specified; Z91.19 Patient's noncompliance with other medical treatment and regimen; Z20.822 Contact with and (suspected) exposure to COVID-19
CPT/HCPCS: J3475

== ENCOUNTER 2020-10-14 22:39 | Emergency (ER) | payer MEDICARE, MEDICAID ==
[~2020-10-14] VITALS: Ht 167.6 cm; Wt 104.0 kg
[~2020-10-14 22:39] MED LIST changes: +NEBULIZE2 PO; +NEBULIZER MED; +PROVENTIL0.083 % IN
[2020-10-14] MEDS ORDERED: ALBUTEROL1.25 MG/3 NEB (23:17)
[2020-10-14] MEDS ORDERED: [UNRECOGNIZED DRUG - OTHER] (23:18)
[2020-10-14 23:23] LABS: HEMATOCRIT 41.3 % (37.0-47.0); HEMOGLOBIN 13.8 g/dl (12.0-16.0); IMMATURE GRANULOCYTES 0.5 % (0.0-5.0); MEAN CELL VOLUME 94.7 fL CALC (80.0-100.0); MEAN CORPUSCULAR HGB 31.7 pG CALC (26.0-32.0); MEAN CORPUSCULAR HGB CONC 33.4 g/dL CAL (32.0-36.0); NEUT# 10.52 thou/uL (2.00-7.15); RED BLOOD COUNT 4.36 mill/uL (4.20-5.60); RED CELL DISTRI WIDTH 12.3 % (11.5-15.5)
[2020-10-14 23:24] LABS: URINE BILIRUBIN - DIPSTICK NEGATIVE (NEGATIVE); URINE BLOOD DIPSTICK NEGATIVE (NEGATIVE); URINE COLOR YELLOW; URINE GLUCOSE - DIPSTICK NEGATIVE (NEGATIVE); URINE KETONE NEGATIVE (NEGATIVE); URINE LEUK ESTERASE TRACE (NEGATIVE); URINE NITRITE - DIPSTICK NEGATIVE (Negative); URINE PROTEIN - DIPSTICK NEGATIVE (NEG-TRACE); URINE UROBILINOGEN - DIPSTICK 0.2 E.U./dL (0.2)
[2020-10-14 23:42] LABS: ALBUMIN 3.8 g/dL (3.2-5.0); ALKALINE PHOSPHATASE 214 u/l (38-126); ANION GAP 13 (6-22 (CALC)); BILIRUBIN, TOTAL 0.6 mg/dL (0.0-1.4); BUN 6 mg/dL (7-17); BUN/CREATININE RATIO 7 (12-20 (CALC)); CARBON DIOXIDE 21 mmol/l (22-30); CHLORIDE 105 mmol/l (95-108); CREATININE 0.9 mg/dL (0.5-1.0); GFR > 60 ML/MIN (>=60 (CALC)); GFR FOR AFR.AMER. > 60 ML/MIN (>=60 (CALC)); POTASSIUM 3.9 mmol/l (3.5-5.1); SGOT/AST 30 u/l (14-36); SODIUM 135 mmol/l (137-146); TOTAL PROTEIN 7.9 g/dL (6.3-8.2)
[2020-10-15 00:20] VITALS: BP 127/74
== END 2020-10-15 00:27 | disposition left against medical advice (07) ==
LOC: ED 22:39
PROVIDERS: Emergency Medicine
DX: O26.893 Other specified pregnancy related conditions, third trimester (principal); R10.2 Pelvic and perineal pain; O99.513 Diseases of the respiratory system complicating pregnancy, third trimester; J45.909 Unspecified asthma, uncomplicated; O99.333 Smoking (tobacco) complicating pregnancy, third trimester; F17.200 Nicotine dependence, unspecified, uncomplicated; O09.33 Supervision of pregnancy with insufficient antenatal care, third trimester; Z3A.00 Weeks of gestation of pregnancy not specified; Z91.19 Patient's noncompliance with other medical treatment and regimen

== ENCOUNTER 2020-11-06 15:56 | Emergency (ER) | payer MEDICARE, MEDICAID ==
[~2020-11-06 15:56] MED LIST changes: +ALBUTEROL1.25 MG/3 NEB; +[UNRECOGNIZED DRUG - OTHER]
[2020-11-06 16:55] VITALS: BP 131/81
[2021-01-20] MEDS ORDERED: PERCOCET 5/325M1 TAB PO (14:59)
== END 2020-11-06 16:46 ==
LOC: ED 15:56
DX: O26.893 Other specified pregnancy related conditions, third trimester (principal); R10.9 Unspecified abdominal pain; O34.219 Maternal care for unspecified type scar from previous cesarean delivery; N85.8 Other specified noninflammatory disorders of uterus; O99.513 Diseases of the respiratory system complicating pregnancy, third trimester; J45.909 Unspecified asthma, uncomplicated; O99.333 Smoking (tobacco) complicating pregnancy, third trimester; F17.200 Nicotine dependence, unspecified, uncomplicated; Z3A.39 39 weeks gestation of pregnancy

== ENCOUNTER 2020-11-17 | Emergency (ER) | payer MEDICARE, MEDICAID ==
[2020-11-17 23:46] LABS: HEMATOCRIT 38.1 % (37.0-47.0); HEMOGLOBIN 12.3 g/dl (12.0-16.0); IMMATURE GRANULOCYTES 0.4 % (0.0-5.0); MEAN CELL VOLUME 96.2 fL CALC (80.0-100.0); MEAN CORPUSCULAR HGB 31.1 pG CALC (26.0-32.0); MEAN CORPUSCULAR HGB CONC 32.3 g/dL CAL (32.0-36.0); NEUT# 5.79 thou/uL (2.00-7.15); RED BLOOD COUNT 3.96 mill/uL (4.20-5.60); RED CELL DISTRI WIDTH 12.5 % (11.5-15.5)
[2020-11-18 00:16] LABS: URINE BILIRUBIN - DIPSTICK NEGATIVE (NEGATIVE); URINE BLOOD DIPSTICK MODERATE (NEGATIVE); URINE COLOR YELLOW; URINE GLUCOSE - DIPSTICK NEGATIVE (NEGATIVE); URINE KETONE NEGATIVE (NEGATIVE); URINE LEUK ESTERASE NEGATIVE (NEGATIVE); URINE NITRITE - DIPSTICK NEGATIVE (Negative); URINE PH 7.5 (4.5-8.0); URINE PROTEIN - DIPSTICK NEGATIVE (NEG-TRACE); URINE UROBILINOGEN - DIPSTICK 0.2 E.U./dL (0.2)
[2020-11-18 00:21] LABS: URINE SQUAMOUS EPITHELIAL CELL FEW EPI/hpf (0-FEW); URINE WBC 0-2 WBC/hpf (0-5)
[2020-11-18 00:28] LABS: ALBUMIN 4.1 g/dL (3.2-5.0); ALKALINE PHOSPHATASE 148 u/l (38-126); BILIRUBIN, TOTAL 0.7 mg/dL (0.0-1.4); BUN 8 mg/dL (7-17); BUN/CREATININE RATIO 13 (12-20 (CALC)); CHLORIDE 103 mmol/l (95-108); CREATININE 0.6 mg/dL (0.5-1.0); GFR > 60 ML/MIN (>=60 (CALC)); GFR FOR AFR.AMER. > 60 ML/MIN (>=60 (CALC)); POTASSIUM 4.5 mmol/l (3.5-5.1); SGOT/AST 46 u/l (14-36); SODIUM 138 mmol/l (137-146)
[2020-11-18 00:32] LABS: ANION GAP 13 (6-22 (CALC)); CARBON DIOXIDE 27 mmol/l (22-30)
[2021-01-20] MEDS ORDERED: PERCOCET 5/325M1 TAB PO (14:59)
== END 2020-11-18 02:15 | disposition home or self-care (01) ==
PROVIDERS: Family Medicine
DX: O90.89 Other complications of the puerperium, not elsewhere classified (principal); O99.335 Smoking (tobacco) complicating the puerperium; F17.210 Nicotine dependence, cigarettes, uncomplicated; Z91.19 Patient's noncompliance with other medical treatment and regimen
CPT/HCPCS: Q9967

== ENCOUNTER 2020-11-26 17:58 | Emergency (ER) | payer MEDICARE, MEDICAID ==
[2020-11-26 18:59] LABS: URINE BILIRUBIN - DIPSTICK NEGATIVE (NEGATIVE); URINE BLOOD DIPSTICK NEGATIVE (NEGATIVE); URINE COLOR YELLOW; URINE GLUCOSE - DIPSTICK NEGATIVE (NEGATIVE); URINE KETONE TRACE mg/dL (NEGATIVE); URINE LEUK ESTERASE NEGATIVE (NEGATIVE); URINE PH 6.5 (4.5-8.0); URINE PROTEIN - DIPSTICK TRACE mg/dL (NEG-TRACE); URINE SPECIFIC GRAVITY 1.025; URINE UROBILINOGEN - DIPSTICK 0.2 E.U./dL (0.2)
[2020-11-26 19:02] LABS: URINE NITRITE - DIPSTICK NEGATIVE (Negative)
[2020-11-26] MEDS ORDERED: PYRIDIUM200 MG PO (19:39)
[2020-11-26 20:08] VITALS: BP 127/81
[2021-01-20] MEDS ORDERED: PERCOCET 5/325M1 TAB PO (14:59)
== END 2020-11-26 20:08 | disposition home or self-care (01) ==
LOC: ED 17:58
DX: R30.0 Dysuria (principal); J45.909 Unspecified asthma, uncomplicated; F17.200 Nicotine dependence, unspecified, uncomplicated

== ENCOUNTER 2020-11-29 17:01 | Emergency (ER) | payer MEDICARE, MEDICAID ==
[2020-11-29 17:35] LABS: HEMATOCRIT 38.7 % (37.0-47.0); HEMOGLOBIN 12.2 g/dl (12.0-16.0); IMMATURE GRANULOCYTES 0.2 % (0.0-5.0); MEAN CELL VOLUME 96.5 fL CALC (80.0-100.0); MEAN CORPUSCULAR HGB 30.4 pG CALC (26.0-32.0); MEAN CORPUSCULAR HGB CONC 31.5 g/dL CAL (32.0-36.0); NEUT# 5.49 thou/uL (2.00-7.15); RED BLOOD COUNT 4.01 mill/uL (4.20-5.60); RED CELL DISTRI WIDTH 11.9 % (11.5-15.5)
[2020-11-29 17:52] LABS: ALBUMIN 4.1 g/dL (3.2-5.0); ALKALINE PHOSPHATASE 128 u/l (38-126); ANION GAP 13 (6-22 (CALC)); BILIRUBIN, TOTAL 0.7 mg/dL (0.0-1.4); BUN 3 mg/dL (7-17); BUN/CREATININE RATIO 5 (12-20 (CALC)); CARBON DIOXIDE 23 mmol/l (22-30); CHLORIDE 107 mmol/l (95-108); CREATININE 0.7 mg/dL (0.5-1.0); GFR > 60 ML/MIN (>=60 (CALC)); GFR FOR AFR.AMER. > 60 ML/MIN (>=60 (CALC)); POTASSIUM 4.3 mmol/l (3.5-5.1); SGOT/AST 28 u/l (14-36); SODIUM 139 mmol/l (137-146)
[2020-11-29] MEDS ORDERED: IPRATROPIU0.5 MG/3 M IN (19:11)
[2020-11-29] MEDS ORDERED: ALBUTEROL SUL0.083 % IN (19:11)
[2020-11-29 19:17] VITALS: BP 102/68
[2020-11-30] MEDS ORDERED: PREDNISONE50 MG PO (01:13)
[2021-01-20] MEDS ORDERED: PERCOCET 5/325M1 TAB PO (14:59)
== END 2020-11-29 19:22 | disposition home or self-care (01) ==
LOC: ED 17:01
DX: J45.901 Unspecified asthma with (acute) exacerbation (principal); Z91.128 Patient's intentional underdosing of medication regimen for other reason; T48.6X6A Underdosing of antiasthmatics, initial encounter; F17.210 Nicotine dependence, cigarettes, uncomplicated; Z88.8 Allergy status to other drugs, medicaments and biological substances; Z20.822 Contact with and (suspected) exposure to COVID-19

== ENCOUNTER 2020-11-29 23:46 | Emergency (ER) | payer MEDICARE, MEDICAID ==
[~2020-11-29 23:46] MED LIST changes: +IPRATROPIU0.5 MG/3 M IN
[2020-11-30] MEDS ORDERED: PREDNISONE50 MG PO (01:13)
[2020-11-30 01:30] VITALS: BP 114/74
[2021-01-20] MEDS ORDERED: PERCOCET 5/325M1 TAB PO (14:59)
== END 2020-11-30 01:29 | disposition home or self-care (01) ==
LOC: ED 23:46
DX: J45.901 Unspecified asthma with (acute) exacerbation (principal); F17.210 Nicotine dependence, cigarettes, uncomplicated

== ENCOUNTER 2020-12-09 19:00 | Emergency (ER) | payer MEDICARE, MEDICAID ==
[~2020-12-09] VITALS: Ht 167.6 cm; Wt 100.0 kg
[2020-12-09 19:53] LABS: HEMATOCRIT 41.6 % (37.0-47.0); HEMOGLOBIN 13.1 g/dl (12.0-16.0); IMMATURE GRANULOCYTES 0.4 % (0.0-5.0); MEAN CELL VOLUME 94.5 fL CALC (80.0-100.0); MEAN CORPUSCULAR HGB 29.8 pG CALC (26.0-32.0); MEAN CORPUSCULAR HGB CONC 31.5 g/dL CAL (32.0-36.0); NEUT# 11.5 thou/uL (2.00-7.15); RED BLOOD COUNT 4.4 mill/uL (4.20-5.60); RED CELL DISTRI WIDTH 11.8 % (11.5-15.5)
[2020-12-09 20:03] LABS: ALBUMIN 4.2 g/dL (3.2-5.0); ALKALINE PHOSPHATASE 104 u/l (38-126); ANION GAP 13 (6-22 (CALC)); BILIRUBIN, TOTAL 0.7 mg/dL (0.0-1.4); BUN 12 mg/dL (7-17); BUN/CREATININE RATIO 16 (12-20 (CALC)); CARBON DIOXIDE 24 mmol/l (22-30); CHLORIDE 104 mmol/l (95-108); CREATININE 0.7 mg/dL (0.5-1.0); GFR > 60 ML/MIN (>=60 (CALC)); GFR FOR AFR.AMER. > 60 ML/MIN (>=60 (CALC)); POTASSIUM 4.1 mmol/l (3.5-5.1); SGOT/AST 21 u/l (14-36); SODIUM 137 mmol/l (137-146); TOTAL PROTEIN 8.9 g/dL (6.3-8.2)
[2020-12-09 21:07] LABS: URINE BILIRUBIN - DIPSTICK NEGATIVE (NEGATIVE); URINE BLOOD DIPSTICK NEGATIVE (NEGATIVE); URINE COLOR YELLOW; URINE GLUCOSE - DIPSTICK NEGATIVE (NEGATIVE); URINE KETONE NEGATIVE (NEGATIVE); URINE LEUK ESTERASE NEGATIVE (NEGATIVE); URINE NITRITE - DIPSTICK NEGATIVE (Negative); URINE PROTEIN - DIPSTICK NEGATIVE (NEG-TRACE); URINE SPECIFIC GRAVITY 1.025; URINE UROBILINOGEN - DIPSTICK 0.2 E.U./dL (0.2)
[2020-12-09] MEDS ORDERED: KEFLEX500 MG PO (22:13)
[2020-12-09] MEDS ORDERED: ULTRAM50 M1 PO (22:13)
[2020-12-09 22:29] VITALS: BP 122/65
[2021-01-20] MEDS ORDERED: PERCOCET 5/325M1 TAB PO (14:59)
== END 2020-12-09 22:37 | disposition home or self-care (01) ==
LOC: ED 19:00
PROVIDERS: Emergency Medicine
DX: L08.9 Local infection of the skin and subcutaneous tissue, unspecified (principal); J45.909 Unspecified asthma, uncomplicated; F17.200 Nicotine dependence, unspecified, uncomplicated
CPT/HCPCS: Q9967

== ENCOUNTER 2020-12-18 17:56 | Emergency (ER) | payer MEDICARE, MEDICAID ==
[~2020-12-18] VITALS: Ht 167.6 cm; Wt 100.0 kg
[~2020-12-18 17:56] MED LIST changes: +KEFLEX500 MG PO; +ULTRAM50 M1 PO
[2020-12-18] MEDS ORDERED: ALBUTEROL SUL0.083 % IN (20:15)
[2020-12-18] MEDS ORDERED: MEDDOSEPAK PO (20:15)
[2020-12-18] MEDS ORDERED: PROAIR HFA IN (20:15)
[2020-12-18 20:31] VITALS: BP 101/60
[2021-01-20] MEDS ORDERED: PERCOCET 5/325M1 TAB PO (14:59)
== END 2020-12-18 20:40 | disposition home or self-care (01) ==
LOC: ED 17:56
DX: J45.901 Unspecified asthma with (acute) exacerbation (principal); T38.0X6A Underdosing of glucocorticoids and synthetic analogues, initial encounter; Z91.128 Patient's intentional underdosing of medication regimen for other reason; T48.6X6A Underdosing of antiasthmatics, initial encounter; F17.200 Nicotine dependence, unspecified, uncomplicated

== ENCOUNTER 2021-01-01 20:46 | Emergency (ER) | payer MEDICARE, MEDICAID ==
[~2021-01-01] VITALS: Ht 167.6 cm; Wt 123.0 kg
[~2021-01-01 20:46] MED LIST changes: +PROAIR HFA IN
[2021-01-01] MEDS ORDERED: NYSTATIN/TRIAMC1 CRE TOP (20:59)
[2021-01-01 21:10] VITALS: BP 125/74
[2021-01-20] MEDS ORDERED: PERCOCET 5/325M1 TAB PO (14:59)
== END 2021-01-01 21:23 | disposition home or self-care (01) ==
LOC: ED 20:46
DX: B36.9 Superficial mycosis, unspecified (principal); J45.909 Unspecified asthma, uncomplicated; L30.9 Dermatitis, unspecified; F17.200 Nicotine dependence, unspecified, uncomplicated

== ENCOUNTER 2021-01-05 06:28 | Emergency (ER) | payer MEDICARE, MEDICAID ==
[~2021-01-05] VITALS: Ht 167.6 cm; Wt 95.0 kg
[~2021-01-05 06:28] MED LIST changes: +NYSTATIN/TRIAMC1 CRE TOP
[2021-01-05 07:10] LABS: HEMATOCRIT 42.9 % (37.0-47.0); HEMOGLOBIN 13.3 g/dl (12.0-16.0); IMMATURE GRANULOCYTES 0.2 % (0.0-5.0); MEAN CELL VOLUME 94.1 fL CALC (80.0-100.0); MEAN CORPUSCULAR HGB 29.2 pG CALC (26.0-32.0); NEUT# 6.47 thou/uL (2.00-7.15); RED BLOOD COUNT 4.56 mill/uL (4.20-5.60); RED CELL DISTRI WIDTH 12.4 % (11.5-15.5)
[2021-01-05 07:25] LABS: ANION GAP 12 (6-22 (CALC)); BUN 10 mg/dL (7-17); BUN/CREATININE RATIO 13 (12-20 (CALC)); CARBON DIOXIDE 24 mmol/l (22-30); CHLORIDE 105 mmol/l (95-108); CREATININE 0.7 mg/dL (0.5-1.0); GFR > 60 ML/MIN (>=60 (CALC)); GFR FOR AFR.AMER. > 60 ML/MIN (>=60 (CALC)); POTASSIUM 3.9 mmol/l (3.5-5.1); SODIUM 136 mmol/l (137-146)
[2021-01-05 08:19] LABS: URINE BILIRUBIN - DIPSTICK NEGATIVE (NEGATIVE); URINE BLOOD DIPSTICK NEGATIVE (NEGATIVE); URINE COLOR YELLOW; URINE GLUCOSE - DIPSTICK NEGATIVE (NEGATIVE); URINE KETONE NEGATIVE (NEGATIVE); URINE PROTEIN - DIPSTICK NEGATIVE (NEG-TRACE); URINE SPECIFIC GRAVITY 1.015; URINE UROBILINOGEN - DIPSTICK 0.2 E.U./dL (0.2)
[2021-01-05 08:20] LABS: URINE LEUK ESTERASE MODERATE (NEGATIVE); URINE NITRITE - DIPSTICK NEGATIVE (Negative)
[2021-01-05 08:21] LABS: URINE BACTERIA FEW hpf; URINE EPITHELIAL CELLS FEW EPI/hpf (0-FEW)
[2021-01-05] MEDS ORDERED: KEFLEX500 MG PO (08:33)
[2021-01-05] MEDS ORDERED: MEDDOSEPAK PO (08:33)
[2021-01-05] MEDS ORDERED: ALBUTEROL SUL0.083 % IN (08:33)
[2021-01-05] MEDS ORDERED: VENTOLIN HFA IN (08:33)
[2021-01-05 09:24] VITALS: BP 133/73
[2021-01-20] MEDS ORDERED: PERCOCET 5/325M1 TAB PO (14:59)
== END 2021-01-05 09:25 | disposition home or self-care (01) ==
LOC: ED 06:28
PROVIDERS: Emergency Medicine
DX: J45.901 Unspecified asthma with (acute) exacerbation (principal); R09.02 Hypoxemia; N39.0 Urinary tract infection, site not specified; Z20.822 Contact with and (suspected) exposure to COVID-19

== ENCOUNTER 2021-01-18 21:57 | Emergency (ER) | payer MEDICARE, MEDICAID ==
[~2021-01-18] VITALS: Ht 167.6 cm; Wt 95.5 kg
[2021-01-19] LABS: HEMATOCRIT 40.9 % (37.0-47.0); IMMATURE GRANULOCYTES 0.6 % (0.0-5.0); MEAN CELL VOLUME 92.1 fL CALC (80.0-100.0); MEAN CORPUSCULAR HGB 29.3 pG CALC (26.0-32.0); MEAN CORPUSCULAR HGB CONC 31.8 g/dL CAL (32.0-36.0); NEUT# 12.75 thou/uL (2.00-7.15); RED BLOOD COUNT 4.44 mill/uL (4.20-5.60); RED CELL DISTRI WIDTH 13.1 % (11.5-15.5)
[2021-01-19 00:06] LABS: ALBUMIN 4.3 g/dL (3.2-5.0); ALKALINE PHOSPHATASE 79 u/l (38-126); ANION GAP 15 (6-22 (CALC)); BILIRUBIN, TOTAL 0.5 mg/dL (0.0-1.4); BUN 10 mg/dL (7-17); BUN/CREATININE RATIO 12 (12-20 (CALC)); CARBON DIOXIDE 22 mmol/l (22-30); CHLORIDE 104 mmol/l (95-108); CREATININE 0.9 mg/dL (0.5-1.0); GFR > 60 ML/MIN (>=60 (CALC)); GFR FOR AFR.AMER. > 60 ML/MIN (>=60 (CALC)); SGOT/AST 30 u/l (14-36); SODIUM 137 mmol/l (137-146); TOTAL PROTEIN 8.7 g/dL (6.3-8.2)
[2021-01-19 02:30] LABS: URINE BILIRUBIN - DIPSTICK NEGATIVE (NEGATIVE); URINE BLOOD DIPSTICK MODERATE (NEGATIVE); URINE COLOR YELLOW; URINE GLUCOSE - DIPSTICK NEGATIVE (NEGATIVE); URINE KETONE TRACE mg/dL (NEGATIVE); URINE PROTEIN - DIPSTICK NEGATIVE (NEG-TRACE); URINE SPECIFIC GRAVITY 1.025; URINE UROBILINOGEN - DIPSTICK 0.2 E.U./dL (0.2)
[2021-01-19 02:31] LABS: URINE LEUK ESTERASE NEGATIVE (NEGATIVE); URINE NITRITE - DIPSTICK NEGATIVE (Negative)
[2021-01-19 02:37] LABS: URINE BACTERIA MODERATE hpf; URINE EPITHELIAL CELLS MODERATE EPI/hpf (0-FEW)
[2021-01-19] MEDS ORDERED: PERCOCET 5/325M1 TAB PO (02:59)
[2021-01-19 03:19] VITALS: BP 115/61
[2021-01-20] MEDS ORDERED: PERCOCET 5/325M1 TAB PO (14:59)
== END 2021-01-19 03:19 | disposition home or self-care (01) ==
LOC: ED 21:57
PROVIDERS: Emergency Medicine
DX: S00.83XA Contusion of other part of head, initial encounter (principal); S40.021A Contusion of right upper arm, initial encounter; S60.221A Contusion of right hand, initial encounter; J45.909 Unspecified asthma, uncomplicated; F17.210 Nicotine dependence, cigarettes, uncomplicated; Y04.2XXA Assault by strike against or bumped into by another person, initial encounter; Y93.9 Activity, unspecified; Y92.009 Unspecified place in unspecified non-institutional (private) residence as the place of occurrence of the external cause

== ENCOUNTER 2021-01-26 16:05 | Emergency (ER) | payer MEDICARE, MEDICAID ==
[~2021-01-26] VITALS: Ht 167.6 cm; Wt 95.0 kg
[~2021-01-26 16:05] MED LIST changes: +PERCOCET 5/325M1 TAB PO
[2021-01-26 17:07] LABS: HEMOGLOBIN 13.1 g/dl (12.0-16.0); IMMATURE GRANULOCYTES 0.2 % (0.0-5.0); MEAN CELL VOLUME 90.5 fL CALC (80.0-100.0); MEAN CORPUSCULAR HGB 29.6 pG CALC (26.0-32.0); MEAN CORPUSCULAR HGB CONC 32.8 g/dL CAL (32.0-36.0); NEUT# 8.35 thou/uL (2.00-7.15); RED BLOOD COUNT 4.42 mill/uL (4.20-5.60); RED CELL DISTRI WIDTH 12.8 % (11.5-15.5)
[2021-01-26 17:18] LABS: ALBUMIN 4.2 g/dL (3.2-5.0); ALKALINE PHOSPHATASE 88 u/l (38-126); ANION GAP 15 (6-22 (CALC)); BILIRUBIN, TOTAL 0.3 mg/dL (0.0-1.4); BUN 10 mg/dL (7-17); BUN/CREATININE RATIO 12 (12-20 (CALC)); CARBON DIOXIDE 21 mmol/l (22-30); CHLORIDE 108 mmol/l (95-108); CREATININE 0.9 mg/dL (0.5-1.0); GFR > 60 ML/MIN (>=60 (CALC)); GFR FOR AFR.AMER. > 60 ML/MIN (>=60 (CALC)); LIPASE 69 u/l (23-300); POTASSIUM 3.7 mmol/l (3.5-5.1); SGOT/AST 27 u/l (14-36); SODIUM 140 mmol/l (137-146); TOTAL PROTEIN 8.6 g/dL (6.3-8.2)
[2021-01-26 18:19] LABS: URINE BLOOD DIPSTICK NEGATIVE (NEGATIVE); URINE COLOR YELLOW; URINE GLUCOSE - DIPSTICK NEGATIVE (NEGATIVE); URINE KETONE TRACE mg/dL (NEGATIVE); URINE LEUK ESTERASE NEGATIVE (NEGATIVE); URINE PROTEIN - DIPSTICK 30 mg/dL (NEG-TRACE); URINE UROBILINOGEN - DIPSTICK 0.2 E.U./dL (0.2)
[2021-01-26 18:21] LABS: URINE BILIRUBIN - DIPSTICK SMALL (NEGATIVE); URINE NITRITE - DIPSTICK NEGATIVE (Negative)
[2021-01-26 18:28] LABS: URINE RBC 0-2 RBC/hpf (0-5); URINE SQUAMOUS EPITHELIAL CELL FEW EPI/hpf (0-FEW); URINE WBC 0-2 WBC/hpf (0-5)
[2021-01-26] MEDS ORDERED: ALBUTEROL SUL0.083 % IN (18:37)
[2021-01-26] MEDS ORDERED: PROVENTIL108 MCG/AC IN (18:37)
[2021-01-26 18:45] VITALS: BP 100/78
== END 2021-01-26 18:50 ==
LOC: ED 16:05
DX: J45.901 Unspecified asthma with (acute) exacerbation (principal); F17.210 Nicotine dependence, cigarettes, uncomplicated; Z20.822 Contact with and (suspected) exposure to COVID-19

== ENCOUNTER 2021-03-01 17:25 | Emergency (ER) | payer MEDICARE, MEDICAID ==
[~2021-03-01 17:25] MED LIST changes: +PROVENTIL108 MCG/AC IN
[2021-03-01] MEDS ORDERED: PREDNISONE50 MG PO (18:02)
[2021-03-01] MEDS ORDERED: IPRATROPIU0.5 MG/3 M IN (18:02)
[2021-03-01 18:05] VITALS: BP 128/84
== END 2021-03-01 18:05 | disposition left against medical advice (07) ==
LOC: ED 17:25
DX: J45.901 Unspecified asthma with (acute) exacerbation (principal); F17.210 Nicotine dependence, cigarettes, uncomplicated; Z91.19 Patient's noncompliance with other medical treatment and regimen

== ENCOUNTER 2021-03-08 07:14 | Emergency (ER) | payer MEDICARE, MEDICAID ==
[2021-03-08 07:51] LABS: HEMATOCRIT 45.9 % (37.0-47.0); HEMOGLOBIN 14.2 g/dl (12.0-16.0); IMMATURE GRANULOCYTES 0.1 % (0.0-5.0); MEAN CELL VOLUME 92.9 fL CALC (80.0-100.0); MEAN CORPUSCULAR HGB 28.7 pG CALC (26.0-32.0); MEAN CORPUSCULAR HGB CONC 30.9 g/dL CAL (32.0-36.0); NEUT# 8.09 thou/uL (2.00-7.15); RED BLOOD COUNT 4.94 mill/uL (4.20-5.60); RED CELL DISTRI WIDTH 13.1 % (11.5-15.5)
[2021-03-08 08:09] LABS: ALBUMIN 4.4 g/dL (3.2-5.0); ALKALINE PHOSPHATASE 77 u/l (38-126); ANION GAP 17 (6-22 (CALC)); BUN 15 mg/dL (7-17); BUN/CREATININE RATIO 19 (12-20 (CALC)); CARBON DIOXIDE 21 mmol/l (22-30); CHLORIDE 106 mmol/l (95-108); CREATININE 0.8 mg/dL (0.5-1.0); GFR > 60 ML/MIN (>=60 (CALC)); GFR FOR AFR.AMER. > 60 ML/MIN (>=60 (CALC)); POTASSIUM 4.2 mmol/l (3.5-5.1); SGOT/AST 23 u/l (14-36); SODIUM 140 mmol/l (137-146); TOTAL PROTEIN 8.7 g/dL (6.3-8.2)
[2021-03-08 08:13] LABS: BILIRUBIN, TOTAL 0.1 mg/dL (0.0-1.4)
[2021-03-08] MEDS ORDERED: MEDDOSEPAK PO (08:41)
[2021-03-08] MEDS ORDERED: ZPAK PO (08:41)
[2021-03-08] MEDS ORDERED: ALBUTEROL SUL0.083 % IN (08:41)
[2021-03-08 09:12] VITALS: BP 121/80
== END 2021-03-08 09:15 | disposition home or self-care (01) ==
LOC: ED 07:14
PROVIDERS: Emergency Medicine
DX: J45.901 Unspecified asthma with (acute) exacerbation (principal); F17.200 Nicotine dependence, unspecified, uncomplicated; Z20.822 Contact with and (suspected) exposure to COVID-19

== ENCOUNTER 2021-05-04 14:00 | Emergency (ER) | payer MEDICARE, MEDICAID ==
[~2021-05-04] VITALS: Ht 167.6 cm; Wt 100.0 kg
[2021-05-04 14:31] LABS: HEMATOCRIT 42.3 % (37.0-47.0); HEMOGLOBIN 13.7 g/dl (12.0-16.0); IMMATURE GRANULOCYTES 0.1 % (0.0-5.0); MEAN CELL VOLUME 91.4 fL CALC (80.0-100.0); MEAN CORPUSCULAR HGB 29.6 pG CALC (26.0-32.0); MEAN CORPUSCULAR HGB CONC 32.4 g/dL CAL (32.0-36.0); NEUT# 9.88 thou/uL (2.00-7.15); RED BLOOD COUNT 4.63 mill/uL (4.20-5.60); RED CELL DISTRI WIDTH 13.9 % (11.5-15.5)
[2021-05-04 14:32] LABS: URINE BILIRUBIN - DIPSTICK NEGATIVE (NEGATIVE); URINE BLOOD DIPSTICK NEGATIVE (NEGATIVE); URINE COLOR YELLOW; URINE GLUCOSE - DIPSTICK NEGATIVE (NEGATIVE); URINE KETONE NEGATIVE (NEGATIVE); URINE LEUK ESTERASE NEGATIVE (NEGATIVE); URINE PH 5.5 (4.5-8.0); URINE PROTEIN - DIPSTICK NEGATIVE (NEG-TRACE); URINE SPECIFIC GRAVITY >=1.030; URINE UROBILINOGEN - DIPSTICK 0.2 E.U./dL (0.2)
[2021-05-04 14:35] LABS: URINE NITRITE - DIPSTICK NEGATIVE (Negative)
[2021-05-04 14:43] LABS: ALBUMIN 4.4 g/dL (3.2-5.0); ALKALINE PHOSPHATASE 93 u/l (38-126); ANION GAP 14 (6-22 (CALC)); BUN 11 mg/dL (7-17); BUN/CREATININE RATIO 15 (12-20 (CALC)); CARBON DIOXIDE 23 mmol/l (22-30); CHLORIDE 106 mmol/l (95-108); CREATININE 0.8 mg/dL (0.5-1.0); GFR > 60 ML/MIN (>=60 (CALC)); GFR FOR AFR.AMER. > 60 ML/MIN (>=60 (CALC)); LIPASE 95 u/l (23-300); SGOT/AST 27 u/l (14-36); SODIUM 139 mmol/l (137-146); TOTAL PROTEIN 8.6 g/dL (6.3-8.2)
[2021-05-04 14:44] LABS: BILIRUBIN, TOTAL 0.6 mg/dL (0.0-1.4)
[2021-05-04] MEDS ORDERED: PROTONIX40 MG PO (15:49)
[2021-05-04 16:02] VITALS: BP 113/85
== END 2021-05-04 16:02 | disposition home or self-care (01) ==
LOC: ED 14:00
DX: K42.9 Umbilical hernia without obstruction or gangrene (principal); J45.909 Unspecified asthma, uncomplicated; F17.210 Nicotine dependence, cigarettes, uncomplicated
CPT/HCPCS: Q9967; S0164

== ENCOUNTER 2021-06-13 10:11 | Emergency (ER) | payer MEDICARE, MEDICAID ==
[~2021-06-13] VITALS: Ht 167.6 cm; Wt 105.0 kg
[~2021-06-13 10:11] MED LIST changes: +PROTONIX40 MG PO
[2021-06-13 11:27] LABS: HEMOGLOBIN 13.4 g/dl (12.0-16.0); IMMATURE GRANULOCYTES 0.6 % (0.0-5.0); MEAN CELL VOLUME 92.1 fL CALC (80.0-100.0); MEAN CORPUSCULAR HGB 29.4 pG CALC (26.0-32.0); MEAN CORPUSCULAR HGB CONC 31.9 g/dL CAL (32.0-36.0); NEUT# 9.63 thou/uL (2.00-7.15); RED BLOOD COUNT 4.56 mill/uL (4.20-5.60); RED CELL DISTRI WIDTH 13.2 % (11.5-15.5)
[2021-06-13 11:31] LABS: URINE BILIRUBIN - DIPSTICK NEGATIVE (NEGATIVE); URINE BLOOD DIPSTICK TRACE-INTACT (NEGATIVE); URINE COLOR YELLOW; URINE GLUCOSE - DIPSTICK NEGATIVE (NEGATIVE); URINE KETONE NEGATIVE (NEGATIVE); URINE PROTEIN - DIPSTICK NEGATIVE (NEG-TRACE); URINE SPECIFIC GRAVITY 1.015; URINE UROBILINOGEN - DIPSTICK 0.2 E.U./dL (0.2)
[2021-06-13 11:38] LABS: ALBUMIN 4.2 g/dL (3.2-5.0); ALKALINE PHOSPHATASE 102 u/l (38-126); ANION GAP 12 (6-22 (CALC)); BILIRUBIN, TOTAL 0.5 mg/dL (0.0-1.4); BUN 11 mg/dL (7-17); BUN/CREATININE RATIO 12 (12-20 (CALC)); CARBON DIOXIDE 27 mmol/l (22-30); CHLORIDE 107 mmol/l (95-108); CREATININE 0.9 mg/dL (0.5-1.0); GFR > 60 ML/MIN (>=60 (CALC)); GFR FOR AFR.AMER. > 60 ML/MIN (>=60 (CALC)); POTASSIUM 4.1 mmol/l (3.5-5.1); SGOT/AST 24 u/l (14-36); SODIUM 142 mmol/l (137-146); TOTAL PROTEIN 8.5 g/dL (6.3-8.2)
[2021-06-13 11:39] LABS: URINE LEUK ESTERASE LARGE (NEGATIVE); URINE NITRITE - DIPSTICK NEGATIVE (Negative)
[2021-06-13 11:40] LABS: URINE BACTERIA FEW hpf; URINE EPITHELIAL CELLS MODERATE EPI/hpf (0-FEW); URINE RBC 0-2 RBC/hpf (0-5)
[2021-06-13] MEDS ORDERED: BACTRIM DS1 TAB PO (11:59)
[2021-06-13 12:19] VITALS: BP 127/78
== END 2021-06-13 12:19 | disposition home or self-care (01) ==
LOC: ED 10:11
DX: K42.9 Umbilical hernia without obstruction or gangrene (principal); N39.0 Urinary tract infection, site not specified; B96.20 Unspecified Escherichia coli [E. coli] as the cause of diseases classified elsewhere; J45.909 Unspecified asthma, uncomplicated; F17.200 Nicotine dependence, unspecified, uncomplicated

== ENCOUNTER 2021-08-02 17:52 | Emergency (ER) | payer MEDICARE, MEDICAID ==
[~2021-08-02] VITALS: Ht 167.6 cm; Wt 100.0 kg
[~2021-08-02 17:52] MED LIST changes: +BACTRIM DS1 TAB PO
[2021-08-02 21:40] LABS: URINE BILIRUBIN - DIPSTICK NEGATIVE (NEGATIVE); URINE BLOOD DIPSTICK NEGATIVE (NEGATIVE); URINE COLOR YELLOW; URINE GLUCOSE - DIPSTICK NEGATIVE (NEGATIVE); URINE KETONE NEGATIVE (NEGATIVE); URINE PH 5.5 (4.5-8.0); URINE PROTEIN - DIPSTICK NEGATIVE (NEG-TRACE); URINE SPECIFIC GRAVITY 1.025; URINE UROBILINOGEN - DIPSTICK 0.2 E.U./dL (0.2)
[2021-08-02 21:41] LABS: URINE LEUK ESTERASE SMALL (NEGATIVE); URINE NITRITE - DIPSTICK POSITIVE (Negative)
[2021-08-02 21:49] LABS: URINE BACTERIA FEW hpf; URINE RBC 0-2 RBC/hpf (0-5); URINE SQUAMOUS EPITHELIAL CELL FEW EPI/hpf (0-FEW)
[2021-08-02] MEDS ORDERED: SYMBICORT1 AE1 IN (21:51)
[2021-08-02] MEDS ORDERED: KEFLEX500 MG PO (22:25)
[2021-08-02] MEDS ORDERED: PYRIDIUM200 MG PO (22:25)
[2021-08-02 22:33] VITALS: BP 117/63
== END 2021-08-02 22:37 | disposition home or self-care (01) ==
LOC: ED 17:52
PROVIDERS: Emergency Medicine
DX: N39.0 Urinary tract infection, site not specified (principal); J45.909 Unspecified asthma, uncomplicated; F17.200 Nicotine dependence, unspecified, uncomplicated

== ENCOUNTER 2021-08-11 10:50 | Emergency (ER) | payer OTHER, MEDICARE, MEDICAID ==
[~2021-08-11] VITALS: Ht 167.6 cm; Wt 99.7 kg
[2021-08-11] MEDS ORDERED: ALBUTEROL108 MCG/AC PO (11:55)
[2021-08-11] MEDS ORDERED: TRAMADOL HYDROC50 M1 PO (12:02)
[2021-08-11] MEDS ORDERED: DECADRON6 MG PO (12:02)
[2021-08-11] MEDS ORDERED: MOTRIN400 MG/TAB PO (12:02)
[2021-08-11] MEDS ORDERED: FLEXERIL5 M1 PO (12:06)
[2021-08-11 12:42] VITALS: BP 117/70
== END 2021-08-11 12:43 | disposition home or self-care (01) | DRG 552 ==
LOC: ED 10:50
DX: M54.50 Low back pain, unspecified (principal); J45.909 Unspecified asthma, uncomplicated; F17.200 Nicotine dependence, unspecified, uncomplicated

== ENCOUNTER 2021-12-19 23:34 | Emergency (ER) | payer OTHER, MEDICARE, MEDICAID ==
[~2021-12-19] VITALS: Ht 167.6 cm; Wt 89.0 kg
[~2021-12-19 23:34] MED LIST changes: +ALBUTEROL108 MCG/AC PO; +DECADRON6 MG PO; +FLEXERIL5 M1 PO; +MOTRIN400 MG/TAB PO; +TRAMADOL HYDROC50 M1 PO
[2021-12-19 23:44] VITALS: BP 114/69
[2021-12-19 23:45] VITALS: BP 127/75
[2021-12-20 00:01] VITALS: BP 102/68
[2021-12-20 00:24] VITALS: BP 103/62
[2021-12-20 00:31] VITALS: BP 105/62
[2021-12-20 00:37] LABS: HEMATOCRIT 40.3 % (37.0-47.0); HEMOGLOBIN 13.1 g/dl (12.0-16.0); IMMATURE GRANULOCYTES 0.7 % (0.0-5.0); MEAN CELL VOLUME 94.6 fL CALC (80.0-100.0); MEAN CORPUSCULAR HGB 30.8 pG CALC (26.0-32.0); MEAN CORPUSCULAR HGB CONC 32.5 g/dL CAL (32.0-36.0); NEUT# 12.43 thou/uL (2.00-7.15); RED BLOOD COUNT 4.26 mill/uL (4.20-5.60); RED CELL DISTRI WIDTH 12.3 % (11.5-15.5)
[2021-12-20 00:46] VITALS: BP 101/63
[2021-12-20 00:47] LABS: URINE BILIRUBIN - DIPSTICK NEGATIVE (NEGATIVE); URINE BLOOD DIPSTICK NEGATIVE (NEGATIVE); URINE COLOR YELLOW; URINE GLUCOSE - DIPSTICK NEGATIVE (NEGATIVE); URINE KETONE NEGATIVE (NEGATIVE); URINE LEUK ESTERASE NEGATIVE (NEGATIVE); URINE PROTEIN - DIPSTICK NEGATIVE (NEG-TRACE); URINE SPECIFIC GRAVITY >=1.030; URINE UROBILINOGEN - DIPSTICK 0.2 E.U./dL (0.2)
[2021-12-20 00:59] LABS: URINE NITRITE - DIPSTICK NEGATIVE (Negative)
[2021-12-20 01:01] VITALS: BP 111/69
[2021-12-20 01:02] LABS: ALBUMIN 3.8 g/dL (3.2-5.0); AMYLASE 83 u/l (30-110); BILIRUBIN, TOTAL 0.3 mg/dL (0.0-1.4); BUN 6 mg/dL (7-17); BUN/CREATININE RATIO 10 (12-20 (CALC)); CHLORIDE 108 mmol/l (95-108); CREATININE 0.6 mg/dL (0.5-1.0); GFR > 60 ML/MIN (>=60 (CALC)); GFR FOR AFR.AMER. > 60 ML/MIN (>=60 (CALC)); LIPASE 41 u/l (23-300); POTASSIUM 4.1 mmol/l (3.5-5.1); SGOT/AST 32 u/l (14-36); SODIUM 136 mmol/l (137-146); TOTAL PROTEIN 8.1 g/dL (6.3-8.2)
[2021-12-20 01:03] LABS: ALKALINE PHOSPHATASE 184 u/l (38-126); ANION GAP 13 (6-22 (CALC)); CARBON DIOXIDE 19 mmol/l (22-30)
[2021-12-20 01:46] LABS: BETA-HCG, QUANT(RESULT NUMBER) 37612 mIU/mL
[2021-12-20] MEDS ORDERED: TAM75CAP PO ×2 (02:13→02:28)
== END 2021-12-20 02:45 | disposition home or self-care (01) | DRG 833 ==
LOC: ED 23:34
PROVIDERS: Emergency Medicine
DX: O26.899 Other specified pregnancy related conditions, unspecified trimester (principal); R10.84 Generalized abdominal pain; O99.519 Diseases of the respiratory system complicating pregnancy, unspecified trimester; J11.1 Influenza due to unidentified influenza virus with other respiratory manifestations; J45.909 Unspecified asthma, uncomplicated; O99.330 Smoking (tobacco) complicating pregnancy, unspecified trimester; F17.210 Nicotine dependence, cigarettes, uncomplicated; Z3A.00 Weeks of gestation of pregnancy not specified; Z20.822 Contact with and (suspected) exposure to COVID-19

== ENCOUNTER 2022-01-13 13:42 | Emergency (ER) | payer OTHER, MEDICARE, MEDICAID ==
[~2022-01-13] VITALS: Ht 167.6 cm; Wt 105.0 kg
[2022-01-13] VITALS (9 sets, daily range): BP systolic 110–122; BP diastolic 64–88
[2022-01-13 15:27] LABS: URINE BILIRUBIN - DIPSTICK NEGATIVE (NEGATIVE); URINE BLOOD DIPSTICK NEGATIVE (NEGATIVE); URINE COLOR YELLOW; URINE GLUCOSE - DIPSTICK NEGATIVE (NEGATIVE); URINE KETONE NEGATIVE (NEGATIVE); URINE LEUK ESTERASE TRACE (NEGATIVE); URINE PROTEIN - DIPSTICK NEGATIVE (NEG-TRACE); URINE SPECIFIC GRAVITY >=1.030; URINE UROBILINOGEN - DIPSTICK 0.2 E.U./dL (0.2)
[2022-01-13 15:28] LABS: URINE NITRITE - DIPSTICK POSITIVE (Negative)
[2022-01-13 15:31] LABS: HEMATOCRIT 40.3 % (37.0-47.0); HEMOGLOBIN 13.2 g/dl (12.0-16.0); IMMATURE GRANULOCYTES 0.4 % (0.0-5.0); MEAN CELL VOLUME 94.8 fL CALC (80.0-100.0); MEAN CORPUSCULAR HGB 31.1 pG CALC (26.0-32.0); MEAN CORPUSCULAR HGB CONC 32.8 g/dL CAL (32.0-36.0); NEUT# 10.03 thou/uL (2.00-7.15); RED BLOOD COUNT 4.25 mill/uL (4.20-5.60); RED CELL DISTRI WIDTH 12.8 % (11.5-15.5); URINE BACTERIA MANY hpf; URINE EPITHELIAL CELLS MODERATE EPI/hpf (0-FEW)
[2022-01-13 18:22] LABS: ALBUMIN 3.7 g/dL (3.2-5.0); ALKALINE PHOSPHATASE 182 u/l (38-126); ANION GAP 10 (6-22 (CALC)); BILIRUBIN, TOTAL 0.2 mg/dL (0.0-1.4); BUN 7 mg/dL (7-17); BUN/CREATININE RATIO 11 (12-20 (CALC)); CARBON DIOXIDE 21 mmol/l (22-30); CHLORIDE 107 mmol/l (95-108); CREATININE 0.6 mg/dL (0.5-1.0); GFR FOR AFR.AMER. > 60 ML/MIN (>=60 (CALC)); GFR OTHER RACES > 60 ML/MIN (>=60 (CALC)); SGOT/AST 43 u/l (14-36); SODIUM 134 mmol/l (137-146); TOTAL PROTEIN 7.9 g/dL (6.3-8.2)
[2022-01-13] MEDS ORDERED: CEPHALEXIN500 M1 PO (18:52)
[2022-01-13 22:17] LABS: BETA-HCG, QUANT(RESULT NUMBER) 26167 mIU/mL
== END 2022-01-13 19:35 | DRG 832 ==
LOC: ED 13:42
PROVIDERS: Family Medicine
DX: O23.42 Unspecified infection of urinary tract in pregnancy, second trimester (principal); N39.0 Urinary tract infection, site not specified; O99.332 Smoking (tobacco) complicating pregnancy, second trimester; F17.200 Nicotine dependence, unspecified, uncomplicated; O99.512 Diseases of the respiratory system complicating pregnancy, second trimester; J45.909 Unspecified asthma, uncomplicated; Z3A.19 19 weeks gestation of pregnancy

== ENCOUNTER 2022-01-29 16:18 | Emergency (ER) | payer MEDICARE, MEDICAID ==
[~2022-01-29] VITALS: Ht 167.6 cm; Wt 105.0 kg
[~2022-01-29 16:18] MED LIST changes: +CEPHALEXIN500 M1 PO
[2022-01-29 16:25] VITALS: BP 121/99
[2022-01-29 16:30] VITALS: BP 126/73
[2022-01-29 16:52] LABS: HEMATOCRIT 38.5 % (37.0-47.0); HEMOGLOBIN 12.5 g/dl (12.0-16.0); IMMATURE GRANULOCYTES 0.2 % (0.0-5.0); MEAN CELL VOLUME 97.2 fL CALC (80.0-100.0); MEAN CORPUSCULAR HGB 31.6 pG CALC (26.0-32.0); MEAN CORPUSCULAR HGB CONC 32.5 g/dL CAL (32.0-36.0); NEUT# 7.52 thou/uL (2.00-7.15); RED BLOOD COUNT 3.96 mill/uL (4.20-5.60); RED CELL DISTRI WIDTH 13.3 % (11.5-15.5)
[2022-01-29 17:00] VITALS: BP 108/67
[2022-01-29 17:12] LABS: ALBUMIN 3.3 g/dL (3.2-5.0); ALKALINE PHOSPHATASE 157 u/l (38-126); ANION GAP 12 (6-22 (CALC)); BILIRUBIN, TOTAL 0.2 mg/dL (0.0-1.4); BUN 5 mg/dL (7-17); BUN/CREATININE RATIO 8 (12-20 (CALC)); CARBON DIOXIDE 18 mmol/l (22-30); CHLORIDE 110 mmol/l (95-108); CREATININE 0.6 mg/dL (0.5-1.0); GFR FOR AFR.AMER. > 60 ML/MIN (>=60 (CALC)); GFR OTHER RACES > 60 ML/MIN (>=60 (CALC)); LIPASE 45 u/l (23-300); POTASSIUM 3.3 mmol/l (3.5-5.1); SGOT/AST 31 u/l (14-36); SODIUM 136 mmol/l (137-146); TOTAL PROTEIN 7.1 g/dL (6.3-8.2)
[2022-01-29 17:50] LABS: URINE BILIRUBIN - DIPSTICK NEGATIVE (NEGATIVE); URINE BLOOD DIPSTICK NEGATIVE (NEGATIVE); URINE COLOR YELLOW; URINE GLUCOSE - DIPSTICK NEGATIVE (NEGATIVE); URINE KETONE NEGATIVE (NEGATIVE); URINE LEUK ESTERASE TRACE (NEGATIVE); URINE PROTEIN - DIPSTICK NEGATIVE (NEG-TRACE); URINE SPECIFIC GRAVITY >=1.030; URINE UROBILINOGEN - DIPSTICK 0.2 E.U./dL (0.2)
[2022-01-29 17:53] LABS: BETA-HCG, QUANT(RESULT NUMBER) 17960 mIU/mL
[2022-01-29 17:57] LABS: URINE NITRITE - DIPSTICK NEGATIVE (Negative)
[2022-01-29] MEDS ORDERED: PROMETHAZINE HY25 M1 PO (19:09)
[2022-01-29 20:35] VITALS: BP 104/78
== END 2022-01-29 20:35 | disposition home or self-care (01) ==
LOC: ED 16:18
PROVIDERS: Family Medicine
DX: O26.892 Other specified pregnancy related conditions, second trimester (principal); R11.2 Nausea with vomiting, unspecified; O99.512 Diseases of the respiratory system complicating pregnancy, second trimester; J45.909 Unspecified asthma, uncomplicated; O99.332 Smoking (tobacco) complicating pregnancy, second trimester; Z20.822 Contact with and (suspected) exposure to COVID-19; Z3A.21 21 weeks gestation of pregnancy

== ENCOUNTER 2022-02-13 16:25 | Emergency (ER) | payer MEDICARE, MEDICAID ==
[~2022-02-13] VITALS: Ht 167.6 cm; Wt 105.2 kg
[~2022-02-13 16:25] MED LIST changes: +PROMETHAZINE HY25 M1 PO
[2022-02-13 16:47] LABS: HEMATOCRIT 38.7 % (37.0-47.0); HEMOGLOBIN 12.7 g/dl (12.0-16.0); IMMATURE GRANULOCYTES 0.2 % (0.0-5.0); MEAN CELL VOLUME 96.5 fL CALC (80.0-100.0); MEAN CORPUSCULAR HGB 31.7 pG CALC (26.0-32.0); MEAN CORPUSCULAR HGB CONC 32.8 g/dL CAL (32.0-36.0); NEUT# 11.78 thou/uL (2.00-7.15); RED BLOOD COUNT 4.01 mill/uL (4.20-5.60); RED CELL DISTRI WIDTH 12.9 % (11.5-15.5)
[2022-02-13 16:50] LABS: URINE BILIRUBIN - DIPSTICK NEGATIVE (NEGATIVE); URINE BLOOD DIPSTICK NEGATIVE (NEGATIVE); URINE COLOR YELLOW; URINE GLUCOSE - DIPSTICK NEGATIVE (NEGATIVE); URINE KETONE NEGATIVE (NEGATIVE); URINE LEUK ESTERASE NEGATIVE (NEGATIVE); URINE PH 7.5 (4.5-8.0); URINE PROTEIN - DIPSTICK NEGATIVE (NEG-TRACE); URINE UROBILINOGEN - DIPSTICK 0.2 E.U./dL (0.2)
[2022-02-13 16:51] LABS: URINE NITRITE - DIPSTICK NEGATIVE (Negative)
[2022-02-13 17:12] LABS: ALBUMIN 3.2 g/dL (3.2-5.0); ALKALINE PHOSPHATASE 161 u/l (38-126); BUN 5 mg/dL (7-17); BUN/CREATININE RATIO 9 (12-20 (CALC)); CARBON DIOXIDE 19 mmol/l (22-30); CHLORIDE 109 mmol/l (95-108); CREATININE 0.5 mg/dL (0.5-1.0); GFR FOR AFR.AMER. > 60 ML/MIN (>=60 (CALC)); GFR OTHER RACES > 60 ML/MIN (>=60 (CALC)); SGOT/AST 23 u/l (14-36); SODIUM 135 mmol/l (137-146); TOTAL PROTEIN 7.1 g/dL (6.3-8.2)
[2022-02-13 17:15] LABS: ANION GAP 11 (6-22 (CALC)); BILIRUBIN, TOTAL 0.4 mg/dL (0.0-1.4); POTASSIUM 4.2 mmol/l (3.5-5.1)
[2022-02-13 17:43] LABS: TSH, 3RD GENERATION 2.09 uIU/mL (0.47 - 4.68)
[2022-02-13 18:07] VITALS: BP 122/75
[2022-02-13] MEDS ORDERED: AMOXICILLIN500 M2 PO (18:15)
== END 2022-02-13 18:18 | disposition home or self-care (01) ==
LOC: ED 16:25
PROVIDERS: Family Medicine
DX: O99.112 Other diseases of the blood and blood-forming organs and certain disorders involving the immune mechanism complicating pregnancy, second trimester (principal); D72.829 Elevated white blood cell count, unspecified; O99.512 Diseases of the respiratory system complicating pregnancy, second trimester; J45.909 Unspecified asthma, uncomplicated; O99.332 Smoking (tobacco) complicating pregnancy, second trimester; F17.200 Nicotine dependence, unspecified, uncomplicated; Z3A.23 23 weeks gestation of pregnancy; Z20.822 Contact with and (suspected) exposure to COVID-19

== ENCOUNTER 2022-02-24 17:13 | Emergency (ER) | payer MEDICARE, MEDICAID ==
[2022-02-24] VITALS (7 sets, daily range): BP systolic 105–127; BP diastolic 66–84
[~2022-02-24] VITALS: Ht 167.6 cm; Wt 100.0 kg
[~2022-02-24 17:13] MED LIST changes: +AMOXICILLIN500 M2 PO
[2022-02-24 17:39] LABS: HEMATOCRIT 38.7 % (37.0-47.0); IMMATURE GRANULOCYTES 0.2 % (0.0-5.0); MEAN CELL VOLUME 94.2 fL CALC (80.0-100.0); MEAN CORPUSCULAR HGB 31.6 pG CALC (26.0-32.0); MEAN CORPUSCULAR HGB CONC 33.6 g/dL CAL (32.0-36.0); NEUT# 8.5 thou/uL (2.00-7.15); RED BLOOD COUNT 4.11 mill/uL (4.20-5.60); RED CELL DISTRI WIDTH 12.5 % (11.5-15.5)
[2022-02-24 17:48] LABS: URINE BLOOD DIPSTICK NEGATIVE (NEGATIVE); URINE COLOR YELLOW; URINE GLUCOSE - DIPSTICK NEGATIVE (NEGATIVE); URINE KETONE NEGATIVE (NEGATIVE); URINE LEUK ESTERASE NEGATIVE (NEGATIVE); URINE PROTEIN - DIPSTICK TRACE mg/dL (NEG-TRACE); URINE SPECIFIC GRAVITY >=1.030; URINE UROBILINOGEN - DIPSTICK 0.2 E.U./dL (0.2)
[2022-02-24 17:56] LABS: URINE BILIRUBIN - DIPSTICK SMALL (NEGATIVE); URINE NITRITE - DIPSTICK NEGATIVE (Negative)
[2022-02-24 17:57] LABS: ALBUMIN 3.3 g/dL (3.2-5.0); ALKALINE PHOSPHATASE 182 u/l (38-126); ANION GAP 13 (6-22 (CALC)); BILIRUBIN, TOTAL 0.3 mg/dL (0.0-1.4); BUN 5 mg/dL (7-17); BUN/CREATININE RATIO 8 (12-20 (CALC)); CARBON DIOXIDE 18 mmol/l (22-30); CHLORIDE 107 mmol/l (95-108); CREATININE 0.6 mg/dL (0.5-1.0); GFR FOR AFR.AMER. > 60 ML/MIN (>=60 (CALC)); GFR OTHER RACES > 60 ML/MIN (>=60 (CALC)); LIPASE 51 u/l (23-300); POTASSIUM 3.6 mmol/l (3.5-5.1); SODIUM 135 mmol/l (137-146); TOTAL PROTEIN 7.1 g/dL (6.3-8.2)
[2022-02-24 17:59] LABS: SGOT/AST 61 u/l (14-36)
[2022-02-24] MEDS ORDERED: ONDANSETRON4 MG PO (19:06)
== END 2022-02-24 19:46 | disposition home or self-care (01) ==
LOC: ED 17:13
PROVIDERS: Nurse Practitioner
DX: O99.612 Diseases of the digestive system complicating pregnancy, second trimester (principal); K52.9 Noninfective gastroenteritis and colitis, unspecified; O99.512 Diseases of the respiratory system complicating pregnancy, second trimester; J45.909 Unspecified asthma, uncomplicated; O99.332 Smoking (tobacco) complicating pregnancy, second trimester; F17.210 Nicotine dependence, cigarettes, uncomplicated; Z3A.25 25 weeks gestation of pregnancy

== ENCOUNTER 2022-03-18 19:28 | Emergency (ER) | payer MEDICARE, MEDICAID ==
[~2022-03-18] VITALS: Ht 167.6 cm; Wt 119.0 kg
[~2022-03-18 19:28] MED LIST changes: +ONDANSETRON4 MG PO
[2022-03-18 19:42] VITALS: BP 121/83
[2022-03-18 19:45] VITALS: BP 110/78
[2022-03-18 20:00] VITALS: BP 106/70
[2022-03-18 20:19] VITALS: BP 106/70
== END 2022-03-18 20:31 | disposition home or self-care (01) ==
LOC: ED 19:28
DX: M26.622 Arthralgia of left temporomandibular joint (principal); J02.9 Acute pharyngitis, unspecified; J45.909 Unspecified asthma, uncomplicated; F17.200 Nicotine dependence, unspecified, uncomplicated

== ENCOUNTER 2022-04-30 14:23 | Emergency (ER) | payer MEDICARE, MEDICAID ==
[~2022-04-30] VITALS: Ht 167.6 cm; Wt 108.0 kg
[2022-04-30 14:40] VITALS: BP 110/83
[2022-04-30 14:45] VITALS: BP 114/85
[2022-04-30 15:00] VITALS: BP 115/67
[2022-04-30 15:15] VITALS: BP 103/72
[2022-04-30 15:17] LABS: HEMATOCRIT 37.2 % (37.0-47.0); HEMOGLOBIN 12.2 g/dl (12.0-16.0); IMMATURE GRANULOCYTES 0.2 % (0.0-5.0); MEAN CELL VOLUME 95.1 fL CALC (80.0-100.0); MEAN CORPUSCULAR HGB 31.2 pG CALC (26.0-32.0); MEAN CORPUSCULAR HGB CONC 32.8 g/dL CAL (32.0-36.0); NEUT# 8.41 thou/uL (2.00-7.15); RED BLOOD COUNT 3.91 mill/uL (4.20-5.60); RED CELL DISTRI WIDTH 12.4 % (11.5-15.5)
[2022-04-30 15:30] VITALS: BP 99/64
[2022-04-30 15:52] LABS: ALBUMIN 3.5 g/dL (3.2-5.0); ANION GAP 13 (6-22 (CALC)); BUN 5 mg/dL (7-17); BUN/CREATININE RATIO 8 (12-20 (CALC)); CARBON DIOXIDE 21 mmol/l (22-30); CHLORIDE 106 mmol/l (95-108); CREATININE 0.6 mg/dL (0.5-1.0); GFR FOR AFR.AMER. > 60 ML/MIN (>=60 (CALC)); GFR OTHER RACES > 60 ML/MIN (>=60 (CALC)); SGOT/AST 36 u/l (14-36); SODIUM 135 mmol/l (137-146); TOTAL PROTEIN 7.2 g/dL (6.3-8.2)
[2022-04-30 16:14] LABS: ALKALINE PHOSPHATASE 275 u/l (38-126); BILIRUBIN, TOTAL 0.5 mg/dL (0.0-1.4)
[2022-04-30 17:03] LABS: URINE BILIRUBIN - DIPSTICK NEGATIVE (NEGATIVE); URINE BLOOD DIPSTICK NEGATIVE (NEGATIVE); URINE COLOR YELLOW; URINE GLUCOSE - DIPSTICK NEGATIVE (NEGATIVE); URINE KETONE NEGATIVE (NEGATIVE); URINE PROTEIN - DIPSTICK NEGATIVE (NEG-TRACE); URINE SPECIFIC GRAVITY 1.015
[2022-04-30 17:05] LABS: URINE LEUK ESTERASE SMALL (NEGATIVE); URINE NITRITE - DIPSTICK NEGATIVE (Negative)
[2022-04-30 17:14] LABS: URINE SQUAMOUS EPITHELIAL CELL MANY EPI/hpf (0-FEW)
[2022-04-30 17:31] VITALS: BP 103/72
--- NOTE | 2022-05-04 14:17 | NUR ---
Called in new perscription for patient. Amoxicillin 875 MG PO BID x 5 days quantity of 10 with 0 refills. Called in at [facility] pharmacy Rogelio begum.
== END 2022-04-30 17:20 | disposition home or self-care (01) ==
LOC: ED 14:23
PROVIDERS: Nurse Practitioner
DX: O26.893 Other specified pregnancy related conditions, third trimester (principal); R10.11 Right upper quadrant pain; R10.12 Left upper quadrant pain; R10.33 Periumbilical pain; R93.89 Abnormal findings on diagnostic imaging of other specified body structures; O99.513 Diseases of the respiratory system complicating pregnancy, third trimester; J45.909 Unspecified asthma, uncomplicated; O99.333 Smoking (tobacco) complicating pregnancy, third trimester; F17.210 Nicotine dependence, cigarettes, uncomplicated; R82.71 Bacteriuria; Z3A.00 Weeks of gestation of pregnancy not specified; Z59.00 Homelessness unspecified

== ENCOUNTER 2022-05-21 18:02 | Emergency (ER) | payer MEDICARE, MEDICAID ==
[~2022-05-21] VITALS: Ht 167.6 cm; Wt 106.0 kg
[2022-05-21] MEDS ORDERED: VENTOLIN HFA IN (18:47)
[2022-05-21 18:51] VITALS: BP 116/85
[2022-05-21] MEDS ORDERED: SYMBICORT1 AE1 IN (18:55)
== END 2022-05-21 18:58 | disposition home or self-care (01) ==
LOC: ED 18:02
DX: Z76.0 Encounter for issue of repeat prescription (principal); J45.909 Unspecified asthma, uncomplicated; O99.519 Diseases of the respiratory system complicating pregnancy, unspecified trimester; O99.330 Smoking (tobacco) complicating pregnancy, unspecified trimester; F17.200 Nicotine dependence, unspecified, uncomplicated; Z3A.00 Weeks of gestation of pregnancy not specified

== ENCOUNTER 2022-05-28 12:47 | Emergency (ER) | payer MEDICARE, MEDICAID ==
[~2022-05-28] VITALS: Ht 167.6 cm; Wt 114.0 kg
[2022-05-28 13:12] VITALS: BP 137/85
== END 2022-05-28 13:12 | disposition home or self-care (01) ==
LOC: ED 12:47
DX: Z48.01 Encounter for change or removal of surgical wound dressing (principal); J45.909 Unspecified asthma, uncomplicated; F17.200 Nicotine dependence, unspecified, uncomplicated

== ENCOUNTER 2022-06-08 15:27 | Emergency (ER) | payer MEDICARE, MEDICAID ==
[~2022-06-08] VITALS: Ht 167.6 cm; Wt 107.0 kg
[2022-06-08] MEDS ORDERED: SYMBICORT1 AE1 IN (16:04)
[2022-06-08] MEDS ORDERED: CEPHALEXIN500 M1 PO (18:45)
[2022-06-08 18:48] VITALS: BP 133/81
== END 2022-06-08 18:58 | disposition home or self-care (01) ==
LOC: ED 15:27
DX: O90.89 Other complications of the puerperium, not elsewhere classified (principal); M79.661 Pain in right lower leg; O99.53 Diseases of the respiratory system complicating the puerperium; J45.909 Unspecified asthma, uncomplicated; O99.335 Smoking (tobacco) complicating the puerperium; F17.210 Nicotine dependence, cigarettes, uncomplicated

== ENCOUNTER 2022-08-11 22:27 | Emergency (ER) | payer MEDICARE, MEDICAID ==
[~2022-08-11] VITALS: Ht 167.6 cm; Wt 108.0 kg
[2022-08-11 22:38] VITALS: BP 111/77
[2022-08-11 22:46] VITALS: BP 115/56
[2022-08-11 23:01] VITALS: BP 107/75
[2022-08-11 23:53] LABS: BASO% 0.4 % (0-3); EOS% 3.6 % (0-8); HEMATOCRIT 42.7 % (37.0-47.0); HEMOGLOBIN 13.2 g/dl (12.0-16.0); IMMATURE GRANULOCYTES 0.2 % (0.0-5.0); LYMPH% 29.9 % (15-41); MEAN CELL VOLUME 93.6 fL CALC (80.0-100.0); MEAN CORPUSCULAR HGB 28.9 pG CALC (26.0-32.0); MEAN CORPUSCULAR HGB CONC 30.9 g/dL CAL (32.0-36.0); MONO% 8.4 % (2-13); NEUT# 7.32 thou/uL (2.00-7.15); NEUT% 57.5 % (42-76); RED BLOOD COUNT 4.56 mill/uL (4.20-5.60); RED CELL DISTRI WIDTH 12.5 % (11.5-15.5)
[2022-08-11 23:54] LABS: URINE BILIRUBIN - DIPSTICK NEGATIVE (NEGATIVE); URINE BLOOD DIPSTICK LARGE (NEGATIVE); URINE COLOR YELLOW; URINE GLUCOSE - DIPSTICK NEGATIVE (NEGATIVE); URINE KETONE NEGATIVE (NEGATIVE); URINE LEUK ESTERASE NEGATIVE (NEGATIVE); URINE PROTEIN - DIPSTICK NEGATIVE (NEG-TRACE); URINE UROBILINOGEN - DIPSTICK 0.2 E.U./dL (0.2)
[2022-08-11 23:56] LABS: URINE NITRITE - DIPSTICK NEGATIVE (Negative)
[2022-08-12 00:06] LABS: URINE BACTERIA FEW hpf; URINE RBC 50-100 RBC/hpf (0-5); URINE SQUAMOUS EPITHELIAL CELL FEW EPI/hpf (0-FEW)
[2022-08-12 00:10] LABS: ALBUMIN 4.2 g/dL (3.2-5.0); BUN 12 mg/dL (7-17); BUN/CREATININE RATIO 15 (12-20 (CALC)); CHLORIDE 107 mmol/l (95-108); CREATININE 0.8 mg/dL (0.5-1.0); GFR FOR AFR.AMER. > 60 ML/MIN (>=60 (CALC)); GFR OTHER RACES > 60 ML/MIN (>=60 (CALC)); POTASSIUM 3.7 mmol/l (3.5-5.1); SGOT/AST 34 u/l (14-36); TOTAL PROTEIN 8.5 g/dL (6.3-8.2)
[2022-08-12 00:13] LABS: ALKALINE PHOSPHATASE 86 u/l (38-126); ANION GAP 9 (6-22 (CALC)); CARBON DIOXIDE 30 mmol/l (22-30); SODIUM 142 mmol/l (137-146)
[2022-08-12] MEDS ORDERED: KEFLEX500 MG PO (00:43)
[2022-08-12 00:57] VITALS: BP 107/75
[2022-08-12] MEDS ORDERED: FIORICET PO (01:05)
== END 2022-08-12 01:15 | disposition home or self-care (01) ==
LOC: ED 22:27
PROVIDERS: Emergency Medicine
DX: N93.9 Abnormal uterine and vaginal bleeding, unspecified (principal); N39.0 Urinary tract infection, site not specified; J45.909 Unspecified asthma, uncomplicated; F17.200 Nicotine dependence, unspecified, uncomplicated

== ENCOUNTER 2022-09-29 01:51 | Emergency (ER) | payer MEDICARE, MEDICAID ==
[~2022-09-29] VITALS: Ht 167.6 cm; Wt 117.6 kg
[~2022-09-29 01:51] MED LIST changes: +FIORICET PO
[2022-09-29 01:56] VITALS: BP 122/74
[2022-09-29 02:00] VITALS: BP 108/66
[2022-09-29 02:15] VITALS: BP 115/63
[2022-09-29 02:44] LABS: BASO% 0.3 % (0-3); EOS% 3.2 % (0-8); HEMATOCRIT 39.7 % (37.0-47.0); HEMOGLOBIN 12.7 g/dl (12.0-16.0); IMMATURE GRANULOCYTES 0.1 % (0.0-5.0); LYMPH% 32.8 % (15-41); MEAN CELL VOLUME 92.8 fL CALC (80.0-100.0); MEAN CORPUSCULAR HGB 29.7 pG CALC (26.0-32.0); MONO% 7.9 % (2-13); NEUT# 7.57 thou/uL (2.00-7.15); NEUT% 55.7 % (42-76); RED BLOOD COUNT 4.28 mill/uL (4.20-5.60); RED CELL DISTRI WIDTH 13.3 % (11.5-15.5)
[2022-09-29 04:34] LABS: ALKALINE PHOSPHATASE 79 u/l (38-126); ANION GAP 13 (6-22 (CALC)); BUN 17 mg/dL (7-17); BUN/CREATININE RATIO 22 (12-20 (CALC)); CHLORIDE 110 mmol/l (95-108); CREATININE 0.7 mg/dL (0.5-1.0); GFR FOR AFR.AMER. > 60 ML/MIN (>=60 (CALC)); GFR OTHER RACES > 60 ML/MIN (>=60 (CALC)); POTASSIUM 3.5 mmol/l (3.5-5.1); SGOT/AST 32 u/l (14-36); SODIUM 141 mmol/l (137-146); TOTAL PROTEIN 8.1 g/dL (6.3-8.2)
[2022-09-29 05:02] LABS: CARBON DIOXIDE 22 mmol/l (22-30)
[2022-09-29] MEDS ORDERED: PREDNISONE50 MG PO (05:21)
[2022-09-29 05:31] VITALS: BP 115/63
[2022-10-03] MEDS ORDERED: CEPHALEXIN500 MG PO (18:03)
== END 2022-09-29 05:38 | disposition home or self-care (01) ==
LOC: ED 01:51
PROVIDERS: Family Medicine
DX: J45.901 Unspecified asthma with (acute) exacerbation (principal); F17.210 Nicotine dependence, cigarettes, uncomplicated; D72.829 Elevated white blood cell count, unspecified; Z20.822 Contact with and (suspected) exposure to COVID-19

== ENCOUNTER 2022-10-11 19:50 | Emergency (ER) | payer MEDICARE, MEDICAID ==
[~2022-10-11] VITALS: Ht 167.6 cm; Wt 113.4 kg
[~2022-10-11 19:50] MED LIST changes: +CEPHALEXIN500 MG PO
[2022-10-11] MEDS ORDERED: NAPROXEN500 MG PO (20:16)
[2022-10-11 20:43] VITALS: BP 117/70
== END 2022-10-11 20:53 | disposition home or self-care (01) ==
LOC: ED 19:50
DX: S61.211D Laceration without foreign body of left index finger without damage to nail, subsequent encounter (principal); X58.XXXD Exposure to other specified factors, subsequent encounter; F17.200 Nicotine dependence, unspecified, uncomplicated; J45.909 Unspecified asthma, uncomplicated

== ENCOUNTER 2022-10-31 23:23 | Emergency (ER) | payer MEDICARE, MEDICAID ==
[~2022-10-31] VITALS: Ht 167.6 cm; Wt 114.0 kg
[~2022-10-31 23:23] MED LIST changes: +NAPROXEN500 MG PO
[2022-10-31 23:29] VITALS: BP 138/85
[2022-10-31 23:58] VITALS: BP 115/65
[2022-10-31 23:58] LABS: BASO% 0.2 % (0-3); EOS% 2.9 % (0-8); HEMATOCRIT 42.6 % (37.0-47.0); HEMOGLOBIN 13.4 g/dl (12.0-16.0); IMMATURE GRANULOCYTES 0.2 % (0.0-5.0); LYMPH% 31.7 % (15-41); MEAN CELL VOLUME 92.8 fL CALC (80.0-100.0); MEAN CORPUSCULAR HGB 29.2 pG CALC (26.0-32.0); MEAN CORPUSCULAR HGB CONC 31.5 g/dL CAL (32.0-36.0); NEUT# 7.58 thou/uL (2.00-7.15); RED BLOOD COUNT 4.59 mill/uL (4.20-5.60); RED CELL DISTRI WIDTH 13.1 % (11.5-15.5)
[2022-11-01] VITALS (7 sets, daily range): BP systolic 82–166; BP diastolic 51–107
[2022-11-01 00:16] LABS: ALBUMIN 4.6 g/dL (3.2-5.0); ALKALINE PHOSPHATASE 84 u/l (38-126); ANION GAP 13 (6-22 (CALC)); BUN 19 mg/dL (7-17); BUN/CREATININE RATIO 19 (12-20 (CALC)); CARBON DIOXIDE 25 mmol/l (22-30); CHLORIDE 107 mmol/l (95-108); GFR FOR AFR.AMER. > 60 ML/MIN (>=60 (CALC)); GFR OTHER RACES > 60 ML/MIN (>=60 (CALC)); POTASSIUM 3.6 mmol/l (3.5-5.1); SGOT/AST 26 u/l (14-36); SODIUM 141 mmol/l (137-146); TOTAL PROTEIN 8.9 g/dL (6.3-8.2)
[2022-11-01] MEDS ORDERED: PREDNISONE50 MG PO (00:24)
== END 2022-11-01 01:03 | disposition home or self-care (01) ==
LOC: ED 23:23
PROVIDERS: Family Medicine
DX: O99.519 Diseases of the respiratory system complicating pregnancy, unspecified trimester (principal); J45.901 Unspecified asthma with (acute) exacerbation; Z3A.00 Weeks of gestation of pregnancy not specified

== ENCOUNTER 2022-11-07 16:44 | Emergency (ER) | payer MEDICARE, MEDICAID ==
[~2022-11-07] VITALS: Ht 167.6 cm; Wt 104.3 kg
[2022-11-07 17:04] VITALS: BP 111/72
[2022-11-07 17:15] VITALS: BP 109/73
[2022-11-07 17:30] VITALS: BP 101/75
[2022-11-07 17:45] VITALS: BP 113/77
[2022-11-07 18:01] VITALS: BP 101/72
[2022-11-07 19:59] VITALS: BP 101/72
== END 2022-11-07 20:10 | disposition home or self-care (01) ==
LOC: ED 16:44
DX: S93.402A Sprain of unspecified ligament of left ankle, initial encounter (principal); J45.909 Unspecified asthma, uncomplicated; X50.0XXA Overexertion from strenuous movement or load, initial encounter

== ENCOUNTER 2022-12-09 15:14 | Emergency (ER) | payer MEDICARE, MEDICAID ==
[~2022-12-09] VITALS: Ht 167.6 cm; Wt 113.0 kg
[2022-12-09 15:27] VITALS: BP 117/78
[2022-12-09 15:44] VITALS: BP 111/79
[2022-12-09 16:06] LABS: BASO% 0.3 % (0-3); EOS% 3.5 % (0-8); HEMATOCRIT 42.8 % (37.0-47.0); HEMOGLOBIN 13.4 g/dl (12.0-16.0); MEAN CELL VOLUME 91.6 fL CALC (80.0-100.0); MEAN CORPUSCULAR HGB 28.7 pG CALC (26.0-32.0); MEAN CORPUSCULAR HGB CONC 31.3 g/dL CAL (32.0-36.0); NEUT# 7.08 thou/uL (2.00-7.15); NEUT% 64.2 % (42-76); RED BLOOD COUNT 4.67 mill/uL (4.20-5.60); RED CELL DISTRI WIDTH 12.6 % (11.5-15.5)
[2022-12-09 16:21] VITALS: BP 111/78
[2022-12-09 16:34] LABS: ALBUMIN 4.2 g/dL (3.2-5.0); ALKALINE PHOSPHATASE 91 u/l (38-126); ANION GAP 11 (6-22 (CALC)); BUN 11 mg/dL (7-17); BUN/CREATININE RATIO 14 (12-20 (CALC)); CARBON DIOXIDE 26 mmol/l (22-30); CHLORIDE 107 mmol/l (95-108); CREATININE 0.8 mg/dL (0.5-1.0); GFR FOR AFR.AMER. > 60 ML/MIN (>=60 (CALC)); GFR OTHER RACES > 60 ML/MIN (>=60 (CALC)); POTASSIUM 3.9 mmol/l (3.5-5.1); SGOT/AST 27 u/l (14-36); SODIUM 141 mmol/l (137-146); TOTAL PROTEIN 8.2 g/dL (6.3-8.2)
[2022-12-09 16:37] LABS: BILIRUBIN, TOTAL 0.2 mg/dL (0.02-1.3)
[2022-12-09 16:41] VITALS: BP 107/80
[2022-12-09 18:37] LABS: URINE BILIRUBIN - DIPSTICK NEGATIVE (NEGATIVE); URINE BLOOD DIPSTICK TRACE-INTACT (NEGATIVE); URINE COLOR YELLOW; URINE GLUCOSE - DIPSTICK NEGATIVE (NEGATIVE); URINE KETONE NEGATIVE (NEGATIVE); URINE PROTEIN - DIPSTICK NEGATIVE (NEG-TRACE); URINE SPECIFIC GRAVITY <=1.005; URINE UROBILINOGEN - DIPSTICK 0.2 E.U./dL (0.2)
[2022-12-09 18:42] LABS: URINE LEUK ESTERASE SMALL (NEGATIVE); URINE NITRITE - DIPSTICK NEGATIVE (Negative)
[2022-12-09] MEDS ORDERED: ALBUTEROL1 NEB (18:42)
[2022-12-09] MEDS ORDERED: DECADRON4 MG PO (18:42)
[2022-12-09] MEDS ORDERED: LEVAQUIN750 M1 PO (18:42)
[2022-12-09 18:46] VITALS: BP 110/72
[2022-12-09 18:50] LABS: URINE SQUAMOUS EPITHELIAL CELL FEW EPI/hpf (0-FEW)
[2022-12-09 18:51] LABS: URINE BACTERIA MODERATE hpf; URINE MUCUS FEW hpf (NONE-FEW)
== END 2022-12-09 18:53 | disposition home or self-care (01) ==
LOC: ED 15:14
PROVIDERS: Family Medicine
DX: J45.901 Unspecified asthma with (acute) exacerbation (principal); Z20.822 Contact with and (suspected) exposure to COVID-19
CPT/HCPCS: Q9967

== ENCOUNTER 2023-01-05 20:01 | Emergency (ER) | payer MEDICARE, MEDICAID ==
[~2023-01-05] VITALS: Ht 170.2 cm; Wt 113.0 kg
[~2023-01-05 20:01] MED LIST changes: +ALBUTEROL1 NEB; +LEVAQUIN750 M1 PO
[2023-01-05 20:40] VITALS: BP 102/66
[2023-01-05 21:01] VITALS: BP 104/74
[2023-01-05 21:53] LABS: BASO% 0.1 % (0-3); EOS% 0.1 % (0-8); HEMATOCRIT 40.5 % (37.0-47.0); HEMOGLOBIN 12.6 g/dl (12.0-16.0); IMMATURE GRANULOCYTES 0.2 % (0.0-5.0); LYMPH% 17.3 % (15-41); MEAN CELL VOLUME 90.4 fL CALC (80.0-100.0); MEAN CORPUSCULAR HGB 28.1 pG CALC (26.0-32.0); MEAN CORPUSCULAR HGB CONC 31.1 g/dL CAL (32.0-36.0); MONO% 7.3 % (2-13); NEUT# 12.51 thou/uL (2.00-7.15); RED BLOOD COUNT 4.48 mill/uL (4.20-5.60); RED CELL DISTRI WIDTH 13.1 % (11.5-15.5)
[2023-01-05 22:04] LABS: ALBUMIN 4.2 g/dL (3.2-5.0); ALKALINE PHOSPHATASE 84 u/l (38-126); ANION GAP 15 (6-22 (CALC)); BUN 13 mg/dL (7-17); BUN/CREATININE RATIO 15 (12-20 (CALC)); CARBON DIOXIDE 22 mmol/l (22-30); CHLORIDE 107 mmol/l (95-108); CREATININE 0.9 mg/dL (0.5-1.0); GFR FOR AFR.AMER. > 60 ML/MIN (>=60 (CALC)); GFR OTHER RACES > 60 ML/MIN (>=60 (CALC)); POTASSIUM 3.5 mmol/l (3.5-5.1); SGOT/AST 27 u/l (14-36); SODIUM 141 mmol/l (137-146); TOTAL PROTEIN 8.2 g/dL (6.3-8.2)
[2023-01-05 22:05] LABS: BILIRUBIN, TOTAL 0.1 mg/dL (0.02-1.3)
[2023-01-05 22:59] LABS: URINE BILIRUBIN - DIPSTICK NEGATIVE (NEGATIVE); URINE BLOOD DIPSTICK SMALL (NEGATIVE); URINE COLOR YELLOW; URINE GLUCOSE - DIPSTICK NEGATIVE (NEGATIVE); URINE KETONE NEGATIVE (NEGATIVE); URINE LEUK ESTERASE TRACE (NEGATIVE); URINE PROTEIN - DIPSTICK 30 mg/dL (NEG-TRACE); URINE SPECIFIC GRAVITY >=1.030; URINE UROBILINOGEN - DIPSTICK 0.2 E.U./dL (0.2)
[2023-01-05 23:00] LABS: URINE NITRITE - DIPSTICK NEGATIVE (Negative)
[2023-01-05 23:03] LABS: URINE SQUAMOUS EPITHELIAL CELL MODERATE EPI/hpf (0-FEW); URINE WBC >100 WBC/hpf (0-5)
[2023-01-05] MEDS ORDERED: OMNICEF300 MG PO (23:17)
[2023-01-06 00:15] VITALS: BP 104/74
== END 2023-01-06 00:15 | disposition home or self-care (01) ==
LOC: ED 20:01
PROVIDERS: Emergency Medicine
DX: N39.0 Urinary tract infection, site not specified (principal); J45.909 Unspecified asthma, uncomplicated; Z20.822 Contact with and (suspected) exposure to COVID-19

== ENCOUNTER 2023-02-19 10:08 | Day surgery (SDC) | payer MEDICARE, MEDICAID ==
[2023-02-19] VITALS (24 sets, daily range): BP systolic 80–125; BP diastolic 47–76
[~2023-02-19] VITALS: Ht 170.2 cm; Wt 121.8 kg
[~2023-02-19 10:08] MED LIST changes: +OMNICEF300 MG PO
[2023-02-19 10:32] LABS: BASO% 0.1 % (0-3); EOS% 0.9 % (0-8); HEMATOCRIT 43.5 % (37.0-47.0); HEMOGLOBIN 13.6 g/dl (12.0-16.0); IMMATURE GRANULOCYTES 0.1 % (0.0-5.0); LYMPH% 34.7 % (15-41); MEAN CELL VOLUME 89.3 fL CALC (80.0-100.0); MEAN CORPUSCULAR HGB 27.9 pG CALC (26.0-32.0); MEAN CORPUSCULAR HGB CONC 31.3 g/dL CAL (32.0-36.0); MONO% 8.4 % (2-13); NEUT# 7.74 thou/uL (2.00-7.15); NEUT% 55.8 % (42-76); RED BLOOD COUNT 4.87 mill/uL (4.20-5.60); RED CELL DISTRI WIDTH 13.8 % (11.5-15.5)
[2023-02-19 10:47] LABS: ALBUMIN 4.3 g/dL (3.2-5.0); ALKALINE PHOSPHATASE 96 u/l (38-126); ANION GAP 14 (6-22 (CALC)); BUN 15 mg/dL (7-17); BUN/CREATININE RATIO 18 (12-20 (CALC)); CARBON DIOXIDE 23 mmol/l (22-30); CHLORIDE 107 mmol/l (95-108); CREATININE 0.8 mg/dL (0.5-1.0); GFR FOR AFR.AMER. > 60 ML/MIN (>=60 (CALC)); GFR OTHER RACES > 60 ML/MIN (>=60 (CALC)); LIPASE 108 u/l (23-300); POTASSIUM 3.7 mmol/l (3.5-5.1); SGOT/AST 27 u/l (14-36); SODIUM 140 mmol/l (137-146); TOTAL PROTEIN 8.5 g/dL (6.3-8.2)
[2023-02-19 10:48] LABS: BILIRUBIN, TOTAL 0.4 mg/dL (0.02-1.3)
[2023-02-19] MEDS ORDERED: LORTAB 5/3255 MG PO (13:44)
[2023-02-20] MEDS ORDERED: TRAMADOL HCL50 MG PO (21:58)
[2023-02-20] MEDS ORDERED: BACTRIM DS1 TAB PO (21:58)
== END 2023-02-19 17:00 | disposition home or self-care (01) ==
LOC: ED 10:08 → ORM 12:54 → ED 13:30 → ORM 17:00
PROVIDERS: Family Medicine; ATTEND Surgery
PROC: 0WQF0ZZ Repair Abdominal Wall, Open Approach (ICD-10-PCS; principal; 2023-02-19)
DX: K42.0 Umbilical hernia with obstruction, without gangrene (principal); J45.909 Unspecified asthma, uncomplicated; Z20.822 Contact with and (suspected) exposure to COVID-19
CPT/HCPCS: C9290; J0131; J0690; J2060; Q9967

== ENCOUNTER 2023-02-20 19:39 | Emergency (ER) | payer MEDICARE, MEDICAID ==
[~2023-02-20] VITALS: Ht 167.6 cm; Wt 121.5 kg
[~2023-02-20 19:39] MED LIST changes: +LORTAB 5/3255 MG PO
[2023-02-20 21:09] VITALS: BP 154/91
[2023-02-20 21:15] VITALS: BP 126/85
[2023-02-20 21:33] LABS: BASO% 0.3 % (0-3); EOS% 3.9 % (0-8); HEMATOCRIT 42.2 % (37.0-47.0); HEMOGLOBIN 12.9 g/dl (12.0-16.0); IMMATURE GRANULOCYTES 0.2 % (0.0-5.0); LYMPH% 24.8 % (15-41); MEAN CELL VOLUME 90.6 fL CALC (80.0-100.0); MEAN CORPUSCULAR HGB 27.7 pG CALC (26.0-32.0); MEAN CORPUSCULAR HGB CONC 30.6 g/dL CAL (32.0-36.0); MONO% 9.9 % (2-13); NEUT# 7.23 thou/uL (2.00-7.15); NEUT% 60.9 % (42-76); RED BLOOD COUNT 4.66 mill/uL (4.20-5.60); RED CELL DISTRI WIDTH 13.6 % (11.5-15.5)
[2023-02-20 21:34] LABS: URINE BILIRUBIN - DIPSTICK NEGATIVE (NEGATIVE); URINE COLOR YELLOW; URINE GLUCOSE - DIPSTICK NEGATIVE (NEGATIVE); URINE KETONE TRACE mg/dL (NEGATIVE); URINE NITRITE - DIPSTICK NEGATIVE (Negative); URINE PH 5.5 (4.5-8.0); URINE PROTEIN - DIPSTICK NEGATIVE (NEG-TRACE); URINE SPECIFIC GRAVITY 1.025; URINE UROBILINOGEN - DIPSTICK 0.2 E.U./dL (0.2)
[2023-02-20 21:35] LABS: URINE BLOOD DIPSTICK NEGATIVE (NEGATIVE); URINE LEUK ESTERASE SMALL (NEGATIVE)
[2023-02-20 21:42] LABS: URINE BACTERIA MODERATE hpf; URINE RBC 50-100 RBC/hpf (0-5); URINE SQUAMOUS EPITHELIAL CELL FEW EPI/hpf (0-FEW)
[2023-02-20 21:45] LABS: ALBUMIN 3.9 g/dL (3.2-5.0); ALKALINE PHOSPHATASE 92 u/l (38-126); BUN 10 mg/dL (7-17); BUN/CREATININE RATIO 12 (12-20 (CALC)); CHLORIDE 106 mmol/l (95-108); CREATININE 0.8 mg/dL (0.5-1.0); GFR FOR AFR.AMER. > 60 ML/MIN (>=60 (CALC)); GFR OTHER RACES > 60 ML/MIN (>=60 (CALC)); LIPASE 110 u/l (23-300); POTASSIUM 4.2 mmol/l (3.5-5.1); SGOT/AST 37 u/l (14-36); SODIUM 138 mmol/l (137-146); TOTAL PROTEIN 7.9 g/dL (6.3-8.2)
[2023-02-20 21:46] LABS: ANION GAP 8 (6-22 (CALC)); BILIRUBIN, TOTAL 0.6 mg/dL (0.02-1.3); CARBON DIOXIDE 28 mmol/l (22-30)
[2023-02-20] MEDS ORDERED: TRAMADOL HCL50 MG PO (21:58)
[2023-02-20] MEDS ORDERED: BACTRIM DS1 TAB PO (21:58)
[2023-02-20 22:43] VITALS: BP 126/85
== END 2023-02-20 22:54 | disposition home or self-care (01) ==
LOC: ED 19:39
PROVIDERS: Family Medicine
DX: G89.18 Other acute postprocedural pain (principal); N39.0 Urinary tract infection, site not specified; J45.909 Unspecified asthma, uncomplicated; F17.200 Nicotine dependence, unspecified, uncomplicated; Z98.890 Other specified postprocedural states

== ENCOUNTER 2023-03-03 14:10 | Emergency (ER) | payer MEDICARE, MEDICAID ==
[~2023-03-03] VITALS: Ht 167.6 cm; Wt 120.6 kg
[2023-03-03 14:33] VITALS: BP 184/161
[2023-03-03 14:46] VITALS: BP 123/80
[2023-03-03 15:00] VITALS: BP 112/78
[2023-03-03 15:15] VITALS: BP 124/76
[2023-03-03 15:33] VITALS: BP 139/85
[2023-03-03 15:38] LABS: BASO% 0.5 % (0-3); EOS% 7.5 % (0-8); HEMOGLOBIN 13.9 g/dl (12.0-16.0); IMMATURE GRANULOCYTES 0.2 % (0.0-5.0); LYMPH% 24.4 % (15-41); MEAN CELL VOLUME 89.2 fL CALC (80.0-100.0); MEAN CORPUSCULAR HGB 28.8 pG CALC (26.0-32.0); MEAN CORPUSCULAR HGB CONC 32.3 g/dL CAL (32.0-36.0); MONO% 7.2 % (2-13); NEUT# 7.48 thou/uL (2.00-7.15); NEUT% 60.2 % (42-76); RED BLOOD COUNT 4.82 mill/uL (4.20-5.60)
[2023-03-03 15:50] LABS: ALBUMIN 4.5 g/dL (3.2-5.0); ALKALINE PHOSPHATASE 96 u/l (38-126); AMYLASE 104 u/l (30-110); BILIRUBIN, TOTAL 0.5 mg/dL (0.02-1.3); BUN 15 mg/dL (7-17); BUN/CREATININE RATIO 16 (12-20 (CALC)); CHLORIDE 105 mmol/l (95-108); CREATININE 0.9 mg/dL (0.5-1.0); GFR FOR AFR.AMER. > 60 ML/MIN (>=60 (CALC)); GFR OTHER RACES > 60 ML/MIN (>=60 (CALC)); LIPASE 130 u/l (23-300); POTASSIUM 4.5 mmol/l (3.5-5.1); SGOT/AST 33 u/l (14-36); SODIUM 139 mmol/l (137-146); TOTAL PROTEIN 9.3 g/dL (6.3-8.2)
[2023-03-03 15:52] LABS: ANION GAP 18 (6-22 (CALC)); CARBON DIOXIDE 21 mmol/l (22-30)
[2023-03-03] MEDS ORDERED: ONDANSETRON4 MG PO (19:10)
[2023-03-03] MEDS ORDERED: TRAMADOL HCL50 MG PO (19:14)
[2023-03-03 19:35] VITALS: BP 139/85
[2023-03-05] MEDS ORDERED: LORTAB 5/3255 MG PO (12:14)
== END 2023-03-03 19:36 | disposition home or self-care (01) ==
LOC: ED 14:10
PROVIDERS: Family Medicine
DX: G89.18 Other acute postprocedural pain (principal)
CPT/HCPCS: Q9967

== ENCOUNTER 2023-03-11 09:41 | Day surgery (SDC) | payer MEDICARE, MEDICAID ==
[2023-03-11] MEDS ORDERED: SYMBICORT1 AE1 IN (10:26)
[2023-03-11] MEDS ORDERED: LORTAB 5/3255 MG PO (11:23)
[2023-03-11 13:44] VITALS: BP 104/72
[2023-03-17] MEDS ORDERED: AMOX/K CLAV875 M1 PO (09:43)
[2023-03-17] MEDS ORDERED: LORTAB 5/3255 MG PO (09:43)
== END 2023-03-11 14:20 | disposition home or self-care (01) ==
LOC: ORM 09:41
PROVIDERS: ATTEND Surgery
PROC: 0FT44ZZ Resection of Gallbladder, Percutaneous Endoscopic Approach (ICD-10-PCS; principal; 2023-03-11)
DX: K80.10 Calculus of gallbladder with chronic cholecystitis without obstruction (principal); F17.210 Nicotine dependence, cigarettes, uncomplicated
CPT/HCPCS: J0131; J0690; J1100; J2710

== ENCOUNTER 2023-03-15 15:38 | Emergency (ER) | payer MEDICARE, MEDICAID ==
[~2023-03-15] VITALS: Ht 167.6 cm; Wt 120.2 kg
[2023-03-15 15:53] VITALS: BP 127/82
[2023-03-15 16:00] VITALS: BP 120/82
[2023-03-15 16:16] VITALS: BP 97/50
[2023-03-15 16:30] VITALS: BP 98/65
[2023-03-15 16:40] VITALS: BP 98/65
[2023-03-17] MEDS ORDERED: LORTAB 5/3255 MG PO (09:43)
[2023-03-17] MEDS ORDERED: AMOX/K CLAV875 M1 PO (09:43)
== END 2023-03-15 16:46 | disposition home or self-care (01) ==
LOC: ED 15:38
DX: Z48.01 Encounter for change or removal of surgical wound dressing (principal)

== ENCOUNTER 2023-03-30 12:37 | Emergency (ER) | payer MEDICARE, MEDICAID ==
[~2023-03-30] VITALS: Ht 167.6 cm; Wt 120.0 kg
[~2023-03-30 12:37] MED LIST changes: +AMOX/K CLAV875 M1 PO
[2023-03-30] MEDS ORDERED: IBUPROFEN600 MG PO (15:43)
[2023-03-30] MEDS ORDERED: IPRATROPIU0.5 MG/3 M IN (15:43)
[2023-03-30] MEDS ORDERED: PREDNISONE20 MG PO (15:43)
[2023-03-30] MEDS ORDERED: SYMBICORT 80-4.5MCG INHW/SPAC (15:52)
[2023-03-30 16:22] VITALS: BP 124/85
== END 2023-03-30 16:28 | disposition home or self-care (01) ==
LOC: ED 12:37
DX: R06.02 Shortness of breath (principal); R05.9 Cough, unspecified; R50.9 Fever, unspecified; J45.909 Unspecified asthma, uncomplicated; Z20.822 Contact with and (suspected) exposure to COVID-19

== ENCOUNTER 2023-07-12 00:48 | Emergency (ER) | payer MEDICARE, MEDICAID ==
[~2023-07-12] VITALS: Ht 167.6 cm; Wt 117.9 kg
[~2023-07-12 00:48] MED LIST changes: +PREDNISONE20 MG PO; +SYMBICORT 80-4.5MCG INHW/SPAC
[2023-07-12 01:22] VITALS: BP 115/74
[2023-07-12 01:31] VITALS: BP 118/76
[2023-07-12 02:34] LABS: BASO% 0.2 % (0-3); EOS% 1.9 % (0-8); HEMATOCRIT 41.3 % (37.0-47.0); HEMOGLOBIN 13.2 g/dl (12.0-16.0); IMMATURE GRANULOCYTES 0.1 % (0.0-5.0); LYMPH% 18.8 % (15-41); MEAN CORPUSCULAR HGB 29.1 pG CALC (26.0-32.0); MONO% 6.6 % (2-13); NEUT# 12.76 thou/uL (2.00-7.15); NEUT% 72.4 % (42-76); RED BLOOD COUNT 4.54 mill/uL (4.20-5.60); RED CELL DISTRI WIDTH 13.7 % (11.5-15.5)
[2023-07-12 02:45] LABS: AMYLASE 77 u/l (30-110); LIPASE 80 u/l (23-300)
[2023-07-12 03:31] LABS: URINE BILIRUBIN - DIPSTICK Negative (NEGATIVE); URINE BLOOD DIPSTICK Trace-intact (NEGATIVE); URINE GLUCOSE - DIPSTICK Negative (NEGATIVE); URINE KETONE Trace mg/dL (NEGATIVE); URINE NITRITE - DIPSTICK Negative (Negative); URINE PH 6.5 (4.5-8.0); URINE PROTEIN - DIPSTICK Trace mg/dL (NEG-TRACE); URINE UROBILINOGEN - DIPSTICK 0.2 E.U./dL (0.2)
[2023-07-12 03:38] LABS: URINE COLOR Yellow; URINE LEUK ESTERASE Small (NEGATIVE)
[2023-07-12 03:47] LABS: URINE BACTERIA FEW hpf; URINE SQUAMOUS EPITHELIAL CELL FEW EPI/hpf (0-FEW)
[2023-07-12 05:18] VITALS: BP 118/76
[2023-07-12] MEDS ORDERED: KEFLEX500 MG PO (06:53)
[2023-07-12] MEDS ORDERED: PRENATAL DHA200 MG PO (06:53)
== END 2023-07-12 05:27 | disposition home or self-care (01) ==
LOC: ED 00:48
PROVIDERS: Family Medicine
DX: O26.899 Other specified pregnancy related conditions, unspecified trimester (principal); R10.9 Unspecified abdominal pain; O23.40 Unspecified infection of urinary tract in pregnancy, unspecified trimester; N39.0 Urinary tract infection, site not specified; Z3A.00 Weeks of gestation of pregnancy not specified

== ENCOUNTER 2023-07-14 19:50 | Emergency (ER) | payer MEDICARE, MEDICAID ==
[~2023-07-14] VITALS: Ht 167.6 cm; Wt 72.5 kg
[~2023-07-14 19:50] MED LIST changes: +PRENATAL DHA200 MG PO
[2023-07-14 20:02] VITALS: BP 125/104
[2023-07-14 20:16] VITALS: BP 110/70
[2023-07-14 20:50] LABS: BASO% 0.2 % (0-3); EOS% 2.6 % (0-8); HEMOGLOBIN 12.7 g/dl (12.0-16.0); IMMATURE GRANULOCYTES 0.1 % (0.0-5.0); LYMPH% 19.9 % (15-41); MEAN CELL VOLUME 92.2 fL CALC (80.0-100.0); MEAN CORPUSCULAR HGB 29.3 pG CALC (26.0-32.0); MEAN CORPUSCULAR HGB CONC 31.8 g/dL CAL (32.0-36.0); MONO% 9.9 % (2-13); NEUT# 10.41 thou/uL (2.00-7.15); NEUT% 67.3 % (42-76); RED BLOOD COUNT 4.34 mill/uL (4.20-5.60); RED CELL DISTRI WIDTH 13.3 % (11.5-15.5)
[2023-07-14 21:11] LABS: URINE BILIRUBIN - DIPSTICK Negative (NEGATIVE); URINE BLOOD DIPSTICK Large (NEGATIVE); URINE GLUCOSE - DIPSTICK Negative (NEGATIVE); URINE KETONE Negative (NEGATIVE); URINE LEUK ESTERASE Trace (NEGATIVE); URINE NITRITE - DIPSTICK Negative (Negative); URINE PH 5.5 (4.5-8.0); URINE PROTEIN - DIPSTICK Trace mg/dL (NEG-TRACE); URINE SPECIFIC GRAVITY >=1.030; URINE UROBILINOGEN - DIPSTICK 0.2 E.U./dL (0.2)
[2023-07-14 21:12] LABS: URINE COLOR Yellow
[2023-07-14 21:12] LABS: ALBUMIN 4.2 g/dL (3.2-5.0); ALKALINE PHOSPHATASE 94 u/l (38-126); ANION GAP 16 (6-22 (CALC)); BILIRUBIN, TOTAL 0.3 mg/dL (0.02-1.3); BUN 12 mg/dL (7-17); BUN/CREATININE RATIO 14 (12-20 (CALC)); CARBON DIOXIDE 21 mmol/l (22-30); CHLORIDE 107 mmol/l (95-108); CREATININE 0.9 mg/dL (0.5-1.0); GFR FOR AFR.AMER. > 60 ML/MIN (>=60 (CALC)); GFR OTHER RACES > 60 ML/MIN (>=60 (CALC)); POTASSIUM 3.6 mmol/l (3.5-5.1); SGOT/AST 32 u/l (14-36); SODIUM 141 mmol/l (137-146); TOTAL PROTEIN 7.8 g/dL (6.3-8.2)
[2023-07-14 21:19] LABS: URINE SQUAMOUS EPITHELIAL CELL FEW EPI/hpf (0-FEW)
[2023-07-15 00:48] VITALS: BP 110/70
== END 2023-07-15 00:50 | disposition home or self-care (01) ==
LOC: ED 19:50
PROVIDERS: Internal Medicine
DX: O20.0 Threatened abortion (principal); Z3A.00 Weeks of gestation of pregnancy not specified

== ENCOUNTER 2023-07-21 16:01 | Emergency (ER) | payer MEDICARE, MEDICAID ==
[~2023-07-21] VITALS: Ht 167.6 cm; Wt 82.0 kg
[2023-07-21] MEDS ORDERED: PRENATA7 PO (16:43)
[2023-07-21 16:52] LABS: BASO% 0.2 % (0-3); HEMATOCRIT 42.8 % (37.0-47.0); HEMOGLOBIN 13.6 g/dl (12.0-16.0); IMMATURE GRANULOCYTES 0.1 % (0.0-5.0); LYMPH% 22.5 % (15-41); MEAN CELL VOLUME 91.3 fL CALC (80.0-100.0); MEAN CORPUSCULAR HGB CONC 31.8 g/dL CAL (32.0-36.0); MONO% 7.3 % (2-13); NEUT# 9.17 thou/uL (2.00-7.15); NEUT% 64.9 % (42-76); RED BLOOD COUNT 4.69 mill/uL (4.20-5.60); RED CELL DISTRI WIDTH 13.7 % (11.5-15.5)
[2023-07-21 17:18] LABS: ALBUMIN 4.3 g/dL (3.2-5.0); ALKALINE PHOSPHATASE 116 u/l (38-126); ANION GAP 14 (6-22 (CALC)); BILIRUBIN, TOTAL 0.4 mg/dL (0.02-1.3); BUN 9 mg/dL (7-17); BUN/CREATININE RATIO 12 (12-20 (CALC)); CARBON DIOXIDE 24 mmol/l (22-30); CHLORIDE 107 mmol/l (95-108); CREATININE 0.8 mg/dL (0.5-1.0); GFR FOR AFR.AMER. > 60 ML/MIN (>=60 (CALC)); GFR OTHER RACES > 60 ML/MIN (>=60 (CALC)); SGOT/AST 32 u/l (14-36); SODIUM 140 mmol/l (137-146); TOTAL PROTEIN 8.7 g/dL (6.3-8.2)
[2023-07-21 17:34] LABS: BETA-HCG, QUANT(RESULT NUMBER) 147 mIU/mL
[2023-07-21 17:49] LABS: URINE BILIRUBIN - DIPSTICK Negative (NEGATIVE); URINE BLOOD DIPSTICK Large (NEGATIVE); URINE COLOR Yellow; URINE GLUCOSE - DIPSTICK Negative (NEGATIVE); URINE KETONE Negative (NEGATIVE); URINE LEUK ESTERASE Negative (NEGATIVE); URINE NITRITE - DIPSTICK Negative (Negative); URINE PROTEIN - DIPSTICK Negative (NEG-TRACE); URINE SPECIFIC GRAVITY 1.025; URINE UROBILINOGEN - DIPSTICK 0.2 E.U./dL (0.2)
[2023-07-21 17:56] LABS: URINE RBC 25-50 RBC/hpf (0-5); URINE WBC 0-2 WBC/hpf (0-5)
[2023-07-21 18:36] VITALS: BP 144/102
== END 2023-07-21 18:45 | disposition home or self-care (01) ==
LOC: ED 16:01
PROVIDERS: Nurse Practitioner
DX: O20.0 Threatened abortion (principal); Z3A.01 Less than 8 weeks gestation of pregnancy; J45.909 Unspecified asthma, uncomplicated; Z72.0 Tobacco use

== ENCOUNTER 2024-01-14 15:43 | Emergency (ER) | payer MEDICARE, OTHER, MEDICAID ==
[2024-01-14] VITALS (9 sets, daily range): BP systolic 96–137; BP diastolic 56–98
[~2024-01-14] VITALS: Ht 167.6 cm; Wt 120.0 kg
[~2024-01-14 15:43] MED LIST changes: +ADVAIR DISKU IN; +AMANTADINE100 MG PO; +METRONIDAZOLE500 MG PO; +PRENATA7 PO; +SYMBICORT 80-4.5MCG IN; +VENTOLIN HFA108 MCG PO; +ZOFRAN4 MG/TAB PO
[2024-01-14] MEDS ORDERED: IPRATROPIUM-Albuterol 0.5MG-2.5MG/3 ML NEB ONE ×2 (15:50→17:20)
[2024-01-14] MEDS ORDERED: MAGNESIUM SULFATE HEPTAHYDRATE 50 ML IV ONE ×2 (15:50→18:35)
[2024-01-14 16:33] LABS: BASO% 0.1 % (0-3); HEMATOCRIT 41.2 % (37.0-47.0); HEMOGLOBIN 13.9 g/dl (12.0-16.0); IMMATURE GRANULOCYTES 0.2 % (0.0-5.0); LYMPH% 18.5 % (15-41); MEAN CELL VOLUME 91.6 fL CALC (80.0-100.0); MEAN CORPUSCULAR HGB 30.9 pG CALC (26.0-32.0); MEAN CORPUSCULAR HGB CONC 33.7 g/dL CAL (32.0-36.0); MONO% 6.3 % (2-13); NEUT# 9.92 thou/uL (2.00-7.15); NEUT% 69.9 % (42-76); RED BLOOD COUNT 4.5 mill/uL (4.20-5.60)
[2024-01-14 16:51] LABS: ALBUMIN 3.4 g/dL (3.2-5.0); CREATININE 0.5 mg/dL (0.5-1.0); TOTAL PROTEIN 7.1 g/dL (6.3-8.2)
[2024-01-14 16:57] LABS: BILIRUBIN, TOTAL 0.4 mg/dL (0.02-1.3); POTASSIUM 3.6 mmol/l (3.5-5.1)
[2024-01-14 17:54] LABS: URINE BILIRUBIN - DIPSTICK Negative (NEGATIVE); URINE BLOOD DIPSTICK Negative (NEGATIVE); URINE GLUCOSE - DIPSTICK Negative (NEGATIVE); URINE KETONE 15 mg/dL (NEGATIVE); URINE LEUK ESTERASE Negative (NEGATIVE); URINE NITRITE - DIPSTICK Negative (Negative); URINE PROTEIN - DIPSTICK Negative (NEG-TRACE); URINE UROBILINOGEN - DIPSTICK 0.2 E.U./dL (0.2)
[2024-01-14 17:56] LABS: URINE COLOR Yellow
[2024-01-14] MEDS ORDERED: SODIUM CHLORIDE 0.9% 1,000 ML IV PRN (18:30)
[2024-01-14] MEDS ORDERED: ACETAMINOPHEN 325 MG/TAB PO PRN (18:30)
[2024-01-14] MEDS ORDERED: MAGNESIUM HYDROXIDE 30 ML UDC PO PRN (18:30)
[2024-01-14] MEDS ORDERED: ONDANSETRON HCl 4 MG/2 ML SDV IV PRN (18:35)
[2024-01-14] MEDS ORDERED: PREDNISONE20 MG PO (18:56)
[2024-01-14] MEDS ORDERED: PROAIR HFA IN (18:56)
[2024-01-14] MEDS ORDERED: IPRATROPIU0.5 MG/3 M IN (18:56)
[2024-01-14] MEDS ORDERED: IPRATROPIUM-Albuterol 0.5MG-2.5MG/3 ML NEB SCH (19:00)
[2024-01-14] MEDS ORDERED: ENOXAPARIN SODIUM 40 MG/0.4 ML SYR SC SCH (21:00)
[2024-01-15] MEDS ORDERED: MULTIPLE VITAMIN TABLET PO SCH (09:00)
[2024-01-15] MEDS ORDERED: DEXAMETHASONE SODIUM PHOSPHATE 4 MG/VIAL SDV IV SCH (09:00)
[2024-01-15] MEDS ORDERED: FOLIC ACID 1 MG/TAB PO SCH (09:00)
== END 2024-01-14 19:21 | disposition left against medical advice (07) ==
LOC: ED 15:43 → ED-I 18:07 → ED 19:21
PROVIDERS: Nurse Practitioner
DX: O99.512 Diseases of the respiratory system complicating pregnancy, second trimester (principal); J45.901 Unspecified asthma with (acute) exacerbation; Z3A.16 16 weeks gestation of pregnancy; Z53.29 Procedure and treatment not carried out because of patient's decision for other reasons
CPT/HCPCS: J3475

== ENCOUNTER 2024-01-21 16:34 | Emergency (ER) | payer MEDICARE, OTHER, MEDICAID ==
[~2024-01-21] VITALS: Ht 167.6 cm; Wt 117.0 kg
[2024-01-21 16:51] VITALS: BP 104/64
[2024-01-21 17:01] VITALS: BP 101/73
[2024-01-21 17:16] LABS: BASO% 0.1 % (0-3); EOS% 0.1 % (0-8); HEMATOCRIT 41.7 % (37.0-47.0); HEMOGLOBIN 13.7 g/dl (12.0-16.0); IMMATURE GRANULOCYTES 0.4 % (0.0-5.0); MEAN CELL VOLUME 93.5 fL CALC (80.0-100.0); MEAN CORPUSCULAR HGB 30.7 pG CALC (26.0-32.0); MEAN CORPUSCULAR HGB CONC 32.9 g/dL CAL (32.0-36.0); MONO% 8.1 % (2-13); NEUT# 9.65 thou/uL (2.00-7.15); NEUT% 69.9 % (42-76); RED BLOOD COUNT 4.46 mill/uL (4.20-5.60); URINE BILIRUBIN - DIPSTICK Negative (NEGATIVE); URINE BLOOD DIPSTICK Negative (NEGATIVE); URINE COLOR Yellow; URINE GLUCOSE - DIPSTICK Negative (NEGATIVE); URINE KETONE Negative (NEGATIVE); URINE LEUK ESTERASE Trace (NEGATIVE); URINE NITRITE - DIPSTICK Negative (Negative); URINE PROTEIN - DIPSTICK Negative (NEG-TRACE); URINE SPECIFIC GRAVITY >=1.030; URINE UROBILINOGEN - DIPSTICK 0.2 E.U./dL (0.2)
[2024-01-21 17:33] LABS: ALBUMIN 3.6 g/dL (3.2-5.0); CREATININE 0.9 mg/dL (0.5-1.0); TOTAL PROTEIN 7.4 g/dL (6.3-8.2)
[2024-01-21 17:34] LABS: LYMPH% 21.4 % (15-41)
[2024-01-21 17:35] LABS: BILIRUBIN, TOTAL 0.2 mg/dL (0.02-1.3); POTASSIUM 4.4 mmol/l (3.5-5.1)
[2024-01-21 18:00] VITALS: BP 126/77
[2024-01-21 18:31] VITALS: BP 132/84
[2024-01-21 19:01] VITALS: BP 124/83
[2024-01-21] MEDS ORDERED: PHENAZOPYRIDIN100 M1 PO (19:16)
[2024-01-21 19:30] VITALS: BP 124/83
== END 2024-01-21 19:30 | disposition home or self-care (01) ==
LOC: ED 16:34
PROVIDERS: Nurse Practitioner
DX: O99.619 Diseases of the digestive system complicating pregnancy, unspecified trimester (principal); R19.7 Diarrhea, unspecified; O99.519 Diseases of the respiratory system complicating pregnancy, unspecified trimester; J45.909 Unspecified asthma, uncomplicated; Z3A.00 Weeks of gestation of pregnancy not specified

== ENCOUNTER 2024-03-10 19:11 | Emergency (ER) | payer MEDICARE, OTHER, MEDICAID ==
[~2024-03-10] VITALS: Ht 167.6 cm; Wt 107.0 kg
[~2024-03-10 19:11] MED LIST changes: +ADVAIR DISK1 IN; +PHENAZOPYRIDIN100 M1 PO
[2024-03-10 19:46] VITALS: BP 112/79
[2024-03-10] MEDS ORDERED: HYDROCORTISONE TD (19:53)
== END 2024-03-10 20:32 | disposition home or self-care (01) ==
LOC: ED 19:11
DX: O99.712 Diseases of the skin and subcutaneous tissue complicating pregnancy, second trimester (principal); R21 Rash and other nonspecific skin eruption; O99.512 Diseases of the respiratory system complicating pregnancy, second trimester; J45.909 Unspecified asthma, uncomplicated; T48.6X6A Underdosing of antiasthmatics, initial encounter; Z91.128 Patient's intentional underdosing of medication regimen for other reason; Z88.8 Allergy status to other drugs, medicaments and biological substances; Z3A.24 24 weeks gestation of pregnancy

== ENCOUNTER 2024-03-20 20:51 | Emergency (ER) | payer MEDICARE, OTHER, MEDICAID ==
[~2024-03-20] VITALS: Ht 167.6 cm; Wt 86.0 kg
[~2024-03-20 20:51] MED LIST changes: +HYDROCORTISONE TD
[2024-03-20 20:56] VITALS: BP 115/82
[2024-03-20 21:00] VITALS: BP 126/79
[2024-03-20 21:36] LABS: BASO% 0.1 % (0-3); EOS% 3.1 % (0-8); HEMATOCRIT 37.9 % (37.0-47.0); HEMOGLOBIN 12.7 g/dl (12.0-16.0); IMMATURE GRANULOCYTES 0.2 % (0.0-5.0); MEAN CELL VOLUME 92.9 fL CALC (80.0-100.0); MEAN CORPUSCULAR HGB 31.1 pG CALC (26.0-32.0); MEAN CORPUSCULAR HGB CONC 33.5 g/dL CAL (32.0-36.0); MONO% 6.8 % (2-13); NEUT# 10.56 thou/uL (2.00-7.15); NEUT% 75.8 % (42-76); RED BLOOD COUNT 4.08 mill/uL (4.20-5.60); RED CELL DISTRI WIDTH 12.8 % (11.5-15.5)
[2024-03-20 21:48] LABS: ALBUMIN 3.6 g/dL (3.2-5.0); CREATININE 0.6 mg/dL (0.5-1.0); POTASSIUM 4.3 mmol/l (3.5-5.1); TOTAL PROTEIN 7.8 g/dL (6.3-8.2)
[2024-03-20 21:49] LABS: BILIRUBIN, TOTAL 0.6 mg/dL (0.02-1.3)
[2024-03-20 22:06] LABS: URINE BLOOD DIPSTICK Negative (NEGATIVE); URINE GLUCOSE - DIPSTICK Negative (NEGATIVE); URINE KETONE Trace mg/dL (NEGATIVE); URINE LEUK ESTERASE Negative (NEGATIVE); URINE NITRITE - DIPSTICK Negative (Negative); URINE PH 5.5 (4.5-8.0); URINE PROTEIN - DIPSTICK Trace mg/dL (NEG-TRACE); URINE SPECIFIC GRAVITY >=1.030; URINE UROBILINOGEN - DIPSTICK 0.2 E.U./dL (0.2)
[2024-03-20 22:07] LABS: URINE COLOR Yellow
== END 2024-03-20 21:38 | disposition left against medical advice (07) ==
LOC: ED 20:51
PROVIDERS: Emergency Medicine
DX: O26.892 Other specified pregnancy related conditions, second trimester (principal); R10.2 Pelvic and perineal pain; M54.9 Dorsalgia, unspecified; O09.32 Supervision of pregnancy with insufficient antenatal care, second trimester; O34.219 Maternal care for unspecified type scar from previous cesarean delivery; N85.8 Other specified noninflammatory disorders of uterus; Z3A.24 24 weeks gestation of pregnancy; Z53.29 Procedure and treatment not carried out because of patient's decision for other reasons

== ENCOUNTER 2024-04-10 12:17 | Observation (INO) | payer OTHER, MEDICARE, MEDICAID ==
[2024-04-10] VITALS (20 sets, daily range): BP systolic 88–134; BP diastolic 51–76
[~2024-04-10] VITALS: Ht 167.6 cm; Wt 106.4 kg
[2024-04-10] MEDS ORDERED: SODIUM CHLORIDE 0.9% 1,000 ML IV ONE (12:25)
[2024-04-10] MEDS ORDERED: MAGNESIUM SULFATE HEPTAHYDRATE 50 ML IV ONE (12:25)
[2024-04-10] MEDS ORDERED: IPRATROPIUM-Albuterol 0.5MG-2.5MG/3 ML NEB ONE (12:30)
[2024-04-10] MEDS ORDERED: ALBUTEROL SULFATE 2.5 MG VIAL NEB ONE (12:30)
[2024-04-10 13:04] LABS: BASO% 0.1 % (0-3); EOS% 3.3 % (0-8); HEMATOCRIT 38.9 % (37.0-47.0); HEMOGLOBIN 12.8 g/dl (12.0-16.0); IMMATURE GRANULOCYTES 0.6 % (0.0-5.0); LYMPH% 19.2 % (15-41); MEAN CELL VOLUME 95.3 fL CALC (80.0-100.0); MEAN CORPUSCULAR HGB 31.4 pG CALC (26.0-32.0); MEAN CORPUSCULAR HGB CONC 32.9 g/dL CAL (32.0-36.0); MONO% 4.5 % (2-13); NEUT# 11.88 thou/uL (2.00-7.15); NEUT% 72.3 % (42-76); RED BLOOD COUNT 4.08 mill/uL (4.20-5.60); RED CELL DISTRI WIDTH 12.9 % (11.5-15.5)
[2024-04-10 13:42] LABS: ALBUMIN 3.6 g/dL (3.2-5.0); BILIRUBIN, TOTAL 0.4 mg/dL (0.02-1.3); CREATININE 0.6 mg/dL (0.5-1.0); POTASSIUM 3.6 mmol/l (3.5-5.1)
[2024-04-10] MEDS ORDERED: ACETAMINOPHEN 325 MG/TAB PO PRN (17:05)
[2024-04-10] MEDS ORDERED: SODIUM CHLORIDE 0.9% 1,000 ML IV PRN (17:05)
[2024-04-10] MEDS ORDERED: MAGNESIUM HYDROXIDE 30 ML UDC PO PRN (17:05)
[2024-04-10] MEDS ORDERED: ALBUTEROL SUL0.083 % IN (17:15)
[2024-04-10] MEDS ORDERED: PRENATA3 PO (17:17)
[2024-04-10] MEDS ORDERED: DEXAMETHASONE SOD. PHOSPHATE 10 MG/ML VIAL IV SCH (18:00)
[2024-04-10] MEDS ORDERED: IPRATROPIUM-Albuterol 0.5MG-2.5MG/3 ML NEB SCH (19:00)
[2024-04-10] MEDS ORDERED: ENOXAPARIN SODIUM 40 MG/0.4 ML SYR SC SCH (21:00)
[2024-04-11] VITALS (8 sets, daily range): BP systolic 92–113; BP diastolic 57–65
[2024-04-11 07:09] LABS: HEMATOCRIT 37.4 % (37.0-47.0); HEMOGLOBIN 11.9 g/dl (12.0-16.0); IMMATURE GRANULOCYTES 0.3 % (0.0-5.0); LYMPH% 9.4 % (15-41); MEAN CELL VOLUME 98.2 fL CALC (80.0-100.0); MEAN CORPUSCULAR HGB 31.2 pG CALC (26.0-32.0); MEAN CORPUSCULAR HGB CONC 31.8 g/dL CAL (32.0-36.0); NEUT# 16.41 thou/uL (2.00-7.15); NEUT% 87.3 % (42-76); RED BLOOD COUNT 3.81 mill/uL (4.20-5.60); RED CELL DISTRI WIDTH 13.2 % (11.5-15.5)
[2024-04-11 07:32] LABS: ALBUMIN 3.3 g/dL (3.2-5.0); BILIRUBIN, TOTAL 0.3 mg/dL (0.02-1.3); CREATININE 0.5 mg/dL (0.5-1.0); TOTAL PROTEIN 7.2 g/dL (6.3-8.2)
[2024-04-11 07:36] LABS: POTASSIUM 4.4 mmol/l (3.5-5.1)
[2024-04-11] MEDS ORDERED: DiphenhydrAMINE HCL 50 MG/ML SDV IV PRN (09:50)
[2024-04-11] MEDS ORDERED: DiphenhydrAMINE HCL 50 MG/ML SDV IV SCH (10:30)
[2024-04-11] MEDS ORDERED: AZITHROMYCIN 250 MG/TAB PO SCH (12:00)
[2024-04-11] MEDS ORDERED: FAMOTIDINE 10MG/ML 2ML SDV IV SCH (12:00)
[2024-04-11] MEDS ORDERED: DEXAMETHASONE SOD. PHOSPHATE 10 MG/ML VIAL IV SCH (18:00)
[2024-04-11] MEDS ORDERED: SODIUM CHLORIDE 0.9% 1,000 ML IV PRN (19:15)
[2024-04-11] MEDS ORDERED: MONTELUKAST SODIUM 10 MG/TAB PO SCH (21:00)
[2024-04-12] VITALS (10 sets, daily range): BP systolic 92–123; BP diastolic 45–79
[2024-04-12 05:02] LABS: BASO% 0.1 % (0-3); EOS% 0.1 % (0-8); HEMATOCRIT 35.7 % (37.0-47.0); HEMOGLOBIN 11.5 g/dl (12.0-16.0); IMMATURE GRANULOCYTES 0.3 % (0.0-5.0); LYMPH% 11.5 % (15-41); MEAN CELL VOLUME 99.2 fL CALC (80.0-100.0); MEAN CORPUSCULAR HGB 31.9 pG CALC (26.0-32.0); MEAN CORPUSCULAR HGB CONC 32.2 g/dL CAL (32.0-36.0); MONO% 6.3 % (2-13); NEUT# 11.25 thou/uL (2.00-7.15); NEUT% 81.7 % (42-76); RED BLOOD COUNT 3.6 mill/uL (4.20-5.60); RED CELL DISTRI WIDTH 13.5 % (11.5-15.5)
[2024-04-12 05:10] LABS: ALBUMIN 3.5 g/dL (3.2-5.0); BILIRUBIN, TOTAL 0.4 mg/dL (0.02-1.3); CREATININE 0.6 mg/dL (0.5-1.0); MAGNESIUM 2.1 mg/dL (1.6-2.3); POTASSIUM 4.3 mmol/l (3.5-5.1); TOTAL PROTEIN 7.5 g/dL (6.3-8.2)
[2024-04-12] MEDS ORDERED: [UNRECOGNIZED DRUG - OTHER] TOP PRN (11:40)
[2024-04-13] MEDS ORDERED: DEXAMETHASONE SOD. PHOSPHATE 10 MG/ML VIAL IV SCH (09:00)
== END 2024-04-12 18:03 | disposition short-term general hospital (02) | DRG 832 ==
LOC: ED 12:17 → ED-I 12:27 → ED 17:08 → MS2 17:09
PROVIDERS: Family Medicine; Student in an Organized Health Care Education/Training Program; ADMIT Internal Medicine; ATTEND Internal Medicine
DX: O99.512 Diseases of the respiratory system complicating pregnancy, second trimester (principal); J45.41 Moderate persistent asthma with (acute) exacerbation; O99.712 Diseases of the skin and subcutaneous tissue complicating pregnancy, second trimester; R21 Rash and other nonspecific skin eruption; O26.892 Other specified pregnancy related conditions, second trimester; R10.10 Upper abdominal pain, unspecified; R10.30 Lower abdominal pain, unspecified; O09.32 Supervision of pregnancy with insufficient antenatal care, second trimester; O99.212 Obesity complicating pregnancy, second trimester; E66.9 Obesity, unspecified; Z3A.27 27 weeks gestation of pregnancy; Z20.822 Contact with and (suspected) exposure to COVID-19; O99.322 Drug use complicating pregnancy, second trimester; F19.10 Other psychoactive substance abuse, uncomplicated
CPT/HCPCS: G0378; J1650; J3475; Q9967

== ENCOUNTER 2024-04-30 12:36 | Emergency (ER) | payer MEDICARE, OTHER, MEDICAID ==
[2024-04-30] VITALS (7 sets, daily range): BP systolic 102–140; BP diastolic 66–88
[~2024-04-30] VITALS: Ht 167.6 cm; Wt 113.3 kg
[~2024-04-30 12:36] MED LIST changes: +PRENATA3 PO
[2024-04-30] MEDS ORDERED: ACETAMINOPHEN 1,000 MG/100 ML VIAL IV ONE (12:55)
[2024-04-30] MEDS ORDERED: CYCLOBENZAPRINE HCL 5 MG TAB PO ONE (12:55)
[2024-04-30 13:48] LABS: BASO% 0.2 % (0-3); EOS% 4.4 % (0-8); HEMATOCRIT 39.6 % (37.0-47.0); HEMOGLOBIN 12.9 g/dl (12.0-16.0); IMMATURE GRANULOCYTES 0.4 % (0.0-5.0); LYMPH% 21.3 % (15-41); MEAN CELL VOLUME 96.8 fL CALC (80.0-100.0); MEAN CORPUSCULAR HGB 31.5 pG CALC (26.0-32.0); MEAN CORPUSCULAR HGB CONC 32.6 g/dL CAL (32.0-36.0); MONO% 7.3 % (2-13); NEUT# 8.86 thou/uL (2.00-7.15); NEUT% 66.4 % (42-76); RED BLOOD COUNT 4.09 mill/uL (4.20-5.60); RED CELL DISTRI WIDTH 12.9 % (11.5-15.5)
[2024-04-30 13:50] LABS: URINE BILIRUBIN - DIPSTICK Negative (NEGATIVE); URINE BLOOD DIPSTICK Negative (NEGATIVE); URINE GLUCOSE - DIPSTICK Negative (NEGATIVE); URINE KETONE Negative (NEGATIVE); URINE LEUK ESTERASE Trace (NEGATIVE); URINE NITRITE - DIPSTICK Negative (Negative); URINE PH 5.5 (4.5-8.0); URINE PROTEIN - DIPSTICK Negative (NEG-TRACE); URINE SPECIFIC GRAVITY 1.025; URINE UROBILINOGEN - DIPSTICK 0.2 E.U./dL (0.2)
[2024-04-30 14:06] LABS: ALBUMIN 3.8 g/dL (3.2-5.0); BILIRUBIN, TOTAL 0.4 mg/dL (0.02-1.3); CREATININE 0.5 mg/dL (0.5-1.0); POTASSIUM 4.1 mmol/l (3.5-5.1); TOTAL PROTEIN 7.8 g/dL (6.3-8.2)
[2024-04-30 14:42] LABS: URINE COLOR Yellow
[2024-04-30] MEDS ORDERED: CYCLOBENZAPRINE10 MG PO (15:07)
== END 2024-04-30 15:56 | disposition home or self-care (01) ==
LOC: ED 12:36
PROVIDERS: Nurse Practitioner Family
DX: O26.893 Other specified pregnancy related conditions, third trimester (principal); M54.50 Low back pain, unspecified; O98.113 Syphilis complicating pregnancy, third trimester; A53.9 Syphilis, unspecified; L23.89 Allergic contact dermatitis due to other agents; T36.0X5A Adverse effect of penicillins, initial encounter; Z3A.30 30 weeks gestation of pregnancy
CPT/HCPCS: J0131

== ENCOUNTER 2024-05-03 10:45 | Emergency (ER) | payer MEDICARE, OTHER, MEDICAID ==
[~2024-05-03] VITALS: Ht 167.6 cm; Wt 117.9 kg
[2024-05-03] VITALS (8 sets, daily range): BP systolic 95–134; BP diastolic 25–78
[~2024-05-03 10:45] MED LIST changes: +CYCLOBENZAPRINE10 MG PO
[2024-05-03] MEDS ORDERED: IPRATROPIUM-Albuterol 0.5MG-2.5MG/3 ML NEB ONE ×2 (11:00)
[2024-05-03] MEDS ORDERED: DEXAMETHASONE SOD. PHOSPHATE 10 MG/ML VIAL IV ONE (11:00)
[2024-05-03 11:19] LABS: BASO% 0.1 % (0-3); EOS% 3.8 % (0-8); HEMATOCRIT 40.5 % (37.0-47.0); HEMOGLOBIN 12.9 g/dl (12.0-16.0); IMMATURE GRANULOCYTES 0.2 % (0.0-5.0); LYMPH% 15.9 % (15-41); MEAN CELL VOLUME 97.4 fL CALC (80.0-100.0); MEAN CORPUSCULAR HGB CONC 31.9 g/dL CAL (32.0-36.0); MONO% 6.5 % (2-13); NEUT# 12.14 thou/uL (2.00-7.15); NEUT% 73.5 % (42-76); RED BLOOD COUNT 4.16 mill/uL (4.20-5.60)
[2024-05-03 11:26] LABS: ALBUMIN 3.6 g/dL (3.2-5.0); BILIRUBIN, TOTAL 0.3 mg/dL (0.02-1.3); CREATININE 0.6 mg/dL (0.5-1.0); TOTAL PROTEIN 7.5 g/dL (6.3-8.2)
[2024-05-03] MEDS ORDERED: ALBUTEROL SULFATE 2.5 MG VIAL IN ONE (11:45)
== END 2024-05-03 15:22 | disposition home or self-care (01) ==
LOC: ED 10:45
PROVIDERS: Family Medicine
DX: O99.513 Diseases of the respiratory system complicating pregnancy, third trimester (principal); J45.901 Unspecified asthma with (acute) exacerbation; Z3A.29 29 weeks gestation of pregnancy; Z20.822 Contact with and (suspected) exposure to COVID-19

== ENCOUNTER 2024-06-18 09:36 | Emergency (ER) | payer MEDICARE, MEDICAID ==
[~2024-06-18] VITALS: Ht 167.6 cm; Wt 108.4 kg
[2024-06-18] VITALS (7 sets, daily range): BP systolic 100–119; BP diastolic 65–79
[~2024-06-18 09:36] MED LIST changes: +ATROVENT H17 MCG/ACT PO; +PROVENTIL HFA108 MCG IN
[2024-06-18] MEDS ORDERED: MAGNESIUM SULFATE HEPTAHYDRATE 50 ML IV ONE (09:55)
[2024-06-18] MEDS ORDERED: IPRATROPIUM-Albuterol 0.5MG-2.5MG/3 ML NEB ONE ×2 (09:55)
[2024-06-18] MEDS ORDERED: DEXAMETHASONE SOD. PHOSPHATE 10 MG/ML VIAL IV ONE (10:20)
[2024-06-18] MEDS ORDERED: ALBUTEROL SULFATE 8 GM INH IN ONE (10:25)
[2024-06-18] MEDS ORDERED: ALBUTEROL SULFATE 2.5 MG VIAL IN ONE (10:25)
[2024-06-18 10:34] LABS: BASO% 0.2 % (0-3); EOS% 2.8 % (0-8); HEMATOCRIT 41.3 % (37.0-47.0); HEMOGLOBIN 13.7 g/dl (12.0-16.0); IMMATURE GRANULOCYTES 0.2 % (0.0-5.0); LYMPH% 24.9 % (15-41); MEAN CELL VOLUME 94.5 fL CALC (80.0-100.0); MEAN CORPUSCULAR HGB 31.4 pG CALC (26.0-32.0); MEAN CORPUSCULAR HGB CONC 33.2 g/dL CAL (32.0-36.0); MONO% 7.4 % (2-13); NEUT# 9.67 thou/uL (2.00-7.15); NEUT% 64.5 % (42-76); RED BLOOD COUNT 4.37 mill/uL (4.20-5.60); RED CELL DISTRI WIDTH 12.1 % (11.5-15.5)
[2024-06-18 10:44] LABS: ALBUMIN 3.9 g/dL (3.2-5.0); BILIRUBIN, TOTAL 0.5 mg/dL (0.02-1.3); CREATININE 0.7 mg/dL (0.5-1.0); POTASSIUM 3.6 mmol/l (3.5-5.1); TOTAL PROTEIN 8.1 g/dL (6.3-8.2)
[2024-06-18] MEDS ORDERED: SYMBICORT 80-4.5MCG PO (11:47)
== END 2024-06-18 12:36 | disposition home or self-care (01) ==
LOC: ED 09:36
PROVIDERS: Family Medicine
DX: O99.513 Diseases of the respiratory system complicating pregnancy, third trimester (principal); J45.901 Unspecified asthma with (acute) exacerbation; Z3A.35 35 weeks gestation of pregnancy
CPT/HCPCS: J3475

== ENCOUNTER 2024-06-25 14:36 | Emergency (ER) | payer MEDICARE, MEDICAID ==
[~2024-06-25] VITALS: Ht 167.6 cm; Wt 97.0 kg
[~2024-06-25 14:36] MED LIST changes: +SYMBICORT 80-4.5MCG PO
[2024-06-25 15:50] VITALS: BP 113/63
[2024-06-25 16:01] VITALS: BP 108/61
[2024-06-25] MEDS ORDERED: HYDROcodone 5 MG/Acetaminophen 325 MG/COMBO PO ONE (16:15)
[2024-06-25 17:01] LABS: URINE BILIRUBIN - DIPSTICK Negative (NEGATIVE); URINE BLOOD DIPSTICK Large (NEGATIVE); URINE COLOR Yellow; URINE GLUCOSE - DIPSTICK Negative (NEGATIVE); URINE KETONE Negative (NEGATIVE); URINE LEUK ESTERASE Negative (NEGATIVE); URINE NITRITE - DIPSTICK Positive (Negative); URINE PROTEIN - DIPSTICK Negative (NEG-TRACE); URINE UROBILINOGEN - DIPSTICK 0.2 E.U./dL (0.2)
[2024-06-25 17:02] LABS: BASO% 0.2 % (0-3); IMMATURE GRANULOCYTES 0.2 % (0.0-5.0); LYMPH% 23.8 % (15-41); MEAN CELL VOLUME 97.2 fL CALC (80.0-100.0); MEAN CORPUSCULAR HGB CONC 32.9 g/dL CAL (32.0-36.0); MONO% 6.8 % (2-13); NEUT# 8.15 thou/uL (2.00-7.15); RED BLOOD COUNT 3.22 mill/uL (4.20-5.60); RED CELL DISTRI WIDTH 12.6 % (11.5-15.5)
[2024-06-25 17:06] LABS: HEMATOCRIT 31.3 % (37.0-47.0); HEMOGLOBIN 10.3 g/dl (12.0-16.0)
[2024-06-25 17:09] LABS: URINE BACTERIA MANY hpf
[2024-06-25 17:10] LABS: URINE RBC 25-50 RBC/hpf (0-5); URINE TRANSITIONAL EPI. CELLS FEW hpf
[2024-06-25 17:11] LABS: CREATININE 0.7 mg/dL (0.5-1.0)
[2024-06-25] MEDS ORDERED: TYLENOL # 31 TA1 PO (17:23)
[2024-06-25] MEDS ORDERED: KEFLEX500 MG PO (17:23)
[2024-06-25 17:42] VITALS: BP 113/63
[2024-06-27] MEDS ORDERED: MACROBID100 M1 PO (10:00)
== END 2024-06-25 17:57 | disposition home or self-care (01) ==
LOC: ED 14:36 → ED-I 17:00 → ED 17:57
PROVIDERS: Family Medicine
DX: O86.01 Infection of obstetric surgical wound, superficial incisional site (principal); L03.311 Cellulitis of abdominal wall; O86.20 Urinary tract infection following delivery, unspecified; B96.20 Unspecified Escherichia coli [E. coli] as the cause of diseases classified elsewhere; N39.0 Urinary tract infection, site not specified; Z16.12 Extended spectrum beta lactamase (ESBL) resistance

== ENCOUNTER 2024-07-13 16:10 | Emergency (ER) | payer MEDICARE, MEDICAID ==
[2024-07-13] VITALS (7 sets, daily range): BP systolic 106–115; BP diastolic 63–72
[~2024-07-13] VITALS: Ht 167.6 cm; Wt 108.0 kg
[~2024-07-13 16:10] MED LIST changes: +MACROBID100 M1 PO; +TYLENOL # 31 TA1 PO
[2024-07-13] MEDS ORDERED: IPRATROPIUM-Albuterol 0.5MG-2.5MG/3 ML NEB ONE ×2 (16:15)
[2024-07-13] MEDS ORDERED: ALBUTEROL SULFATE 2.5 MG VIAL IN ONE (16:15)
[2024-07-13 16:54] LABS: BASO% 0.6 % (0-3); EOS% 6.8 % (0-8); IMMATURE GRANULOCYTES 0.2 % (0.0-5.0); LYMPH% 36.6 % (15-41); MEAN CELL VOLUME 97.2 fL CALC (80.0-100.0); MEAN CORPUSCULAR HGB 31.1 pG CALC (26.0-32.0); MONO% 8.3 % (2-13); NEUT# 5.07 thou/uL (2.00-7.15); NEUT% 47.5 % (42-76); RED BLOOD COUNT 4.24 mill/uL (4.20-5.60); RED CELL DISTRI WIDTH 12.2 % (11.5-15.5)
[2024-07-13 16:55] LABS: HEMATOCRIT 41.2 % (37.0-47.0); HEMOGLOBIN 13.2 g/dl (12.0-16.0)
[2024-07-13 17:11] LABS: ALBUMIN 4.1 g/dL (3.2-5.0); BILIRUBIN, TOTAL 0.5 mg/dL (0.02-1.3); POTASSIUM 3.8 mmol/l (3.5-5.1); TOTAL PROTEIN 7.7 g/dL (6.3-8.2)
[2024-07-13] MEDS ORDERED: ALBUTEROL SULFATE 2.5 MG VIAL NEB ONE (17:35)
[2024-07-13] MEDS ORDERED: NEBULIZER PO (18:12)
[2024-07-13] MEDS ORDERED: DEXAMETHASON6 MG PO (18:12)
[2024-07-13] MEDS ORDERED: ALBUTEROL SULFATE 8 GM INH IN ONE (18:20)
== END 2024-07-13 18:30 | disposition home or self-care (01) ==
LOC: ED 16:10
PROVIDERS: Family Medicine
DX: J45.901 Unspecified asthma with (acute) exacerbation (principal)

== ENCOUNTER 2024-07-23 09:18 | Emergency (ER) | payer MEDICARE, MEDICAID ==
[2024-07-23] VITALS (7 sets, daily range): BP systolic 89–108; BP diastolic 59–74
[~2024-07-23] VITALS: Ht 167.6 cm; Wt 99.0 kg
[~2024-07-23 09:18] MED LIST changes: +DEXAMETHASON6 MG PO; +NEBULIZER PO
[2024-07-23 10:06] LABS: BASO% 0.2 % (0-3); EOS% 7.4 % (0-8); HEMATOCRIT 40.8 % (37.0-47.0); HEMOGLOBIN 12.9 g/dl (12.0-16.0); IMMATURE GRANULOCYTES 0.2 % (0.0-5.0); LYMPH% 14.7 % (15-41); MEAN CELL VOLUME 96.2 fL CALC (80.0-100.0); MEAN CORPUSCULAR HGB 30.4 pG CALC (26.0-32.0); MEAN CORPUSCULAR HGB CONC 31.6 g/dL CAL (32.0-36.0); MONO% 7.8 % (2-13); NEUT# 8.89 thou/uL (2.00-7.15); NEUT% 69.7 % (42-76); RED BLOOD COUNT 4.24 mill/uL (4.20-5.60); RED CELL DISTRI WIDTH 12.7 % (11.5-15.5)
[2024-07-23 10:17] LABS: BILIRUBIN, TOTAL 0.6 mg/dL (0.02-1.3); CREATININE 0.9 mg/dL (0.5-1.0); POTASSIUM 4.1 mmol/l (3.5-5.1); TOTAL PROTEIN 7.4 g/dL (6.3-8.2)
[2024-07-23] MEDS ORDERED: IPRATROPIUM-Albuterol 0.5MG-2.5MG/3 ML NEB ONE ×2 (10:30)
[2024-07-23] MEDS ORDERED: DEXAMETHASONE SOD. PHOSPHATE 10 MG/ML VIAL IV ONE (10:35)
[2024-07-23] MEDS ORDERED: KETOROLAC TROMETHAMINE 30 MG/ML SDV IV ONE (11:25)
[2024-07-23] MEDS ORDERED: NAPROXEN500 MG PO (12:03)
[2024-07-23] MEDS ORDERED: ONDANSETRON HCl 4 MG/2 ML SDV IV ONE (12:05)
[2024-07-23] MEDS ORDERED: MORPHINE SULFATE 4 MG/ML VIAL IV ONE (12:05)
== END 2024-07-23 12:27 | disposition home or self-care (01) ==
LOC: ED 09:18
PROVIDERS: Family Medicine
DX: R07.89 Other chest pain (principal); J45.909 Unspecified asthma, uncomplicated; W19.XXXA Unspecified fall, initial encounter
CPT/HCPCS: J1100; J2405

== ENCOUNTER 2024-08-01 11:39 | Emergency (ER) | payer MEDICARE, MEDICAID ==
[~2024-08-01] VITALS: Ht 167.6 cm; Wt 108.0 kg
[2024-08-01] MEDS ORDERED: ORPHENADRINE CITRATE 30 MG/ML AMP IV ONE (12:20)
[2024-08-01] MEDS ORDERED: KETOROLAC TROMETHAMINE 30 MG/ML SDV IV ONE (12:20)
[2024-08-01 12:41] LABS: BASO% 0.2 % (0-3); EOS% 10.3 % (0-8); HEMATOCRIT 40.5 % (37.0-47.0); HEMOGLOBIN 12.8 g/dl (12.0-16.0); IMMATURE GRANULOCYTES 0.1 % (0.0-5.0); LYMPH% 25.8 % (15-41); MEAN CELL VOLUME 95.1 fL CALC (80.0-100.0); MEAN CORPUSCULAR HGB CONC 31.6 g/dL CAL (32.0-36.0); MONO% 6.9 % (2-13); NEUT# 5.64 thou/uL (2.00-7.15); NEUT% 56.7 % (42-76); RED BLOOD COUNT 4.26 mill/uL (4.20-5.60); RED CELL DISTRI WIDTH 12.6 % (11.5-15.5)
[2024-08-01 12:51] LABS: ALBUMIN 4.2 g/dL (3.2-5.0); ALKALINE PHOSPHATASE 90 u/l (38-126); ANION GAP 13 (6-22 (CALC)); BILIRUBIN, TOTAL 0.4 mg/dL (0.02-1.3); BUN 14 mg/dL (7-17); BUN/CREATININE RATIO 14 (12-20 (CALC)); CARBON DIOXIDE 26 mmol/l (22-30); CHLORIDE 105 mmol/l (95-108); ESTIMATED GFR 79 ML/MIN (>=90 (CALC)); POTASSIUM 4.1 mmol/l (3.5-5.1); SGOT/AST 32 u/l (14-36); SODIUM 140 mmol/l (137-146); TOTAL PROTEIN 7.8 g/dL (6.3-8.2)
[2024-08-01 12:59] LABS: URINE BILIRUBIN - DIPSTICK Negative (NEGATIVE); URINE BLOOD DIPSTICK Trace-intact (NEGATIVE); URINE GLUCOSE - DIPSTICK Negative (NEGATIVE); URINE KETONE Trace mg/dL (NEGATIVE); URINE LEUK ESTERASE Trace (NEGATIVE); URINE NITRITE - DIPSTICK Negative (Negative); URINE PH 5.5 (4.5-8.0); URINE PROTEIN - DIPSTICK Negative (NEG-TRACE); URINE SPECIFIC GRAVITY 1.025; URINE UROBILINOGEN - DIPSTICK 0.2 E.U./dL (0.2)
[2024-08-01 13:08] LABS: URINE COLOR Yellow
[2024-08-01] MEDS ORDERED: METHOCARBAMOL500 MG PO (14:31)
[2024-08-01] MEDS ORDERED: ZYRTEC10 MG PO (14:31)
[2024-08-01] MEDS ORDERED: NAPROXEN500 MG PO (14:31)
[2024-08-01 14:45] VITALS: BP 116/78
== END 2024-08-01 15:03 | disposition home or self-care (01) ==
LOC: ED 11:39
PROVIDERS: Nurse Practitioner
DX: R07.89 Other chest pain (principal); J45.909 Unspecified asthma, uncomplicated; V18.0XXA Pedal cycle driver injured in noncollision transport accident in nontraffic accident, initial encounter; Y93.55 Activity, bike riding
CPT/HCPCS: J1100; J2360

== ENCOUNTER 2024-08-27 17:34 | Emergency (ER) | payer MEDICARE, MEDICAID ==
[~2024-08-27] VITALS: Ht 167.6 cm; Wt 85.0 kg
[2024-08-27] VITALS (10 sets, daily range): BP systolic 106–134; BP diastolic 67–112
[~2024-08-27 17:34] MED LIST changes: +METHOCARBAMOL500 MG PO; +ZYRTEC10 MG PO
[2024-08-27] MEDS ORDERED: ALBUTEROL SULFATE 2.5 MG VIAL NEB ONE (17:40)
[2024-08-27] MEDS ORDERED: IPRATROPIUM-Albuterol 0.5MG-2.5MG/3 ML NEB ONE (17:40)
[2024-08-27] MEDS ORDERED: SODIUM CHLORIDE 0.9% 1,000 ML IV ONE (17:40)
[2024-08-27 17:58] LABS: BASO% 0.5 % (0-3); EOS% 12.6 % (0-8); HEMOGLOBIN 13.9 g/dl (12.0-16.0); IMMATURE GRANULOCYTES 0.1 % (0.0-5.0); LYMPH% 30.3 % (15-41); MEAN CELL VOLUME 94.6 fL CALC (80.0-100.0); MEAN CORPUSCULAR HGB 29.9 pG CALC (26.0-32.0); MEAN CORPUSCULAR HGB CONC 31.6 g/dL CAL (32.0-36.0); MONO% 8.3 % (2-13); NEUT# 5.71 thou/uL (2.00-7.15); NEUT% 48.2 % (42-76); RED BLOOD COUNT 4.65 mill/uL (4.20-5.60)
[2024-08-27 18:11] LABS: ALBUMIN 4.4 g/dL (3.2-5.0); BILIRUBIN, TOTAL 0.6 mg/dL (0.02-1.3); CREATININE 0.8 mg/dL (0.5-1.0); POTASSIUM 4.2 mmol/l (3.5-5.1); TOTAL PROTEIN 8.5 g/dL (6.3-8.2)
[2024-08-27] MEDS ORDERED: ALBUTEROL SULFATE 2.5 MG VIAL IN ONE (19:00)
[2024-08-27] MEDS ORDERED: OSELTAMIVIR PHOSPHATE 75 MG/TAB CAP PO ONE (19:10)
[2024-08-27] MEDS ORDERED: ALBUTEROL SULFATE 8 GM INH IN ONE (19:30)
[2024-08-27] MEDS ORDERED: DECADRON4 MG PO (19:33)
[2024-08-27] MEDS ORDERED: NEBULIZER KIT/TUBING IN (19:45)
== END 2024-08-27 20:07 | disposition home or self-care (01) ==
LOC: ED 17:34
PROVIDERS: Family Medicine
DX: J45.901 Unspecified asthma with (acute) exacerbation (principal); J10.1 Influenza due to other identified influenza virus with other respiratory manifestations; Z20.822 Contact with and (suspected) exposure to COVID-19
CPT/HCPCS: J1100

== ENCOUNTER 2024-09-02 16:56 | Emergency (ER) | payer MEDICARE, MEDICAID ==
[~2024-09-02] VITALS: Ht 167.6 cm; Wt 109.0 kg
[2024-09-02] VITALS (8 sets, daily range): BP systolic 101–126; BP diastolic 68–82
[~2024-09-02 16:56] MED LIST changes: +NEBULIZER KIT/TUBING IN
[2024-09-02] MEDS ORDERED: IPRATROPIUM-Albuterol 0.5MG-2.5MG/3 ML NEB ONE ×2 (17:05)
[2024-09-02] MEDS ORDERED: MAGNESIUM SULFATE HEPTAHYDRATE 50 ML IV ONE (17:05)
[2024-09-02] MEDS ORDERED: ALBUTEROL SULFATE 2.5 MG VIAL IN ONE ×2 (17:05→18:35)
[2024-09-02 17:29] LABS: BASO% 0.4 % (0-3); EOS% 15.6 % (0-8); HEMOGLOBIN 13.5 g/dl (12.0-16.0); IMMATURE GRANULOCYTES 0.1 % (0.0-5.0); LYMPH% 25.5 % (15-41); MEAN CELL VOLUME 91.9 fL CALC (80.0-100.0); MEAN CORPUSCULAR HGB 29.5 pG CALC (26.0-32.0); MEAN CORPUSCULAR HGB CONC 32.1 g/dL CAL (32.0-36.0); MONO% 8.5 % (2-13); NEUT# 6.76 thou/uL (2.00-7.15); NEUT% 49.9 % (42-76); RED BLOOD COUNT 4.57 mill/uL (4.20-5.60); RED CELL DISTRI WIDTH 12.9 % (11.5-15.5)
[2024-09-02 17:37] LABS: ALBUMIN 4.2 g/dL (3.2-5.0); ALKALINE PHOSPHATASE 82 u/l (38-126); ANION GAP 12 (6-22 (CALC)); BILIRUBIN, TOTAL 0.5 mg/dL (0.02-1.3); BUN 15 mg/dL (7-17); BUN/CREATININE RATIO 18 (12-20 (CALC)); CARBON DIOXIDE 24 mmol/l (22-30); CHLORIDE 107 mmol/l (95-108); CREATININE 0.8 mg/dL (0.5-1.0); ESTIMATED GFR 103 ML/MIN (>=90 (CALC)); SGOT/AST 29 u/l (14-36); SODIUM 139 mmol/l (137-146); TOTAL PROTEIN 8.2 g/dL (6.3-8.2)
[2024-09-02] MEDS ORDERED: ALBUTEROL SULFATE 8 GM INH IN ONE (18:35)
== END 2024-09-02 19:15 | disposition home or self-care (01) ==
LOC: ED 16:56
PROVIDERS: Family Medicine
DX: J45.901 Unspecified asthma with (acute) exacerbation (principal); Z20.822 Contact with and (suspected) exposure to COVID-19
CPT/HCPCS: J3475

== ENCOUNTER 2024-09-04 16:52 | Emergency (ER) | payer MEDICARE, MEDICAID ==
[~2024-09-04] VITALS: Ht 167.6 cm; Wt 108.8 kg
[2024-09-04] MEDS ORDERED: NAPROXEN 250 MG/TAB PO ONE (18:00)
[2024-09-04] MEDS ORDERED: traMADol HCL 50 MG/TAB PO ONE (18:00)
[2024-09-04 19:52] VITALS: BP 122/75
== END 2024-09-04 19:52 | disposition home or self-care (01) ==
LOC: ED 16:52
DX: S00.11XA Contusion of right eyelid and periocular area, initial encounter (principal); V18.0XXA Pedal cycle driver injured in noncollision transport accident in nontraffic accident, initial encounter

== ENCOUNTER 2024-09-06 04:33 | Emergency (ER) | payer MEDICARE, MEDICAID ==
[~2024-09-06] VITALS: Ht 167.6 cm; Wt 108.0 kg
[2024-09-06] MEDS ORDERED: LIDOCAINE 2% (20 MG/ML) MDV NB ONE (04:55)
[2024-09-06 05:00] VITALS: BP 120/93
[2024-09-06] MEDS ORDERED: LIDOCAINE 2% W/ EPINEPHRINE 30 ML MDV STI ONE (05:00)
[2024-09-06] MEDS ORDERED: [UNRECOGNIZED DRUG - OTHER] IJ ONE (05:10)
[2024-09-06] MEDS ORDERED: LIDOcaine HCl 1% (Local Anesth.) 20 ML VIAL STI ONE (05:10)
[2024-09-06] MEDS ORDERED: LIDOCAINE W/ EPINEPHRINE 10 MG/ML INJ STI ONE (05:20)
[2024-09-06] MEDS ORDERED: LIDOCAINE 2% W/ EPINEPHRINE 20 ML INJ STI SCH (05:20)
[2024-09-06] MEDS ORDERED: LIDOCAINE HCL 2% STI ONE (05:20)
[2024-09-06 05:46] LABS: BASO% 0.3 % (0-3); EOS% 7.3 % (0-8); HEMATOCRIT 43.2 % (37.0-47.0); HEMOGLOBIN 13.7 g/dl (12.0-16.0); IMMATURE GRANULOCYTES 0.2 % (0.0-5.0); MEAN CELL VOLUME 91.5 fL CALC (80.0-100.0); MEAN CORPUSCULAR HGB CONC 31.7 g/dL CAL (32.0-36.0); MONO% 6.7 % (2-13); NEUT# 10.69 thou/uL (2.00-7.15); NEUT% 69.5 % (42-76); RED BLOOD COUNT 4.72 mill/uL (4.20-5.60); RED CELL DISTRI WIDTH 12.6 % (11.5-15.5)
[2024-09-06 06:01] LABS: CREATININE 0.8 mg/dL (0.5-1.0); POTASSIUM 3.5 mmol/l (3.5-5.1)
[2024-09-06] MEDS ORDERED: LIDOCAINE 2% W/ EPINEPHRINE 30 ML MDV STI SCH (06:25)
[2024-09-06] MEDS ORDERED: ALBUTEROL SULFATE 8 GM INH IN ONE (06:35)
[2024-09-06 06:50] VITALS: BP 106/78
[2024-09-06 07:06] VITALS: BP 106/78
== END 2024-09-06 07:17 | disposition home or self-care (01) ==
LOC: ED 04:33
PROVIDERS: Family Medicine
PROC: 0HQ1XZZ Repair Face Skin, External Approach (ICD-10-PCS; principal; 2024-09-06)
DX: T76.11XA Adult physical abuse, suspected, initial encounter (principal); S01.112A Laceration without foreign body of left eyelid and periocular area, initial encounter; S50.911A Unspecified superficial injury of right forearm, initial encounter; J45.909 Unspecified asthma, uncomplicated; F17.200 Nicotine dependence, unspecified, uncomplicated; X58.XXXA Exposure to other specified factors, initial encounter

== ENCOUNTER 2024-09-10 05:03 | Emergency (ER) | payer MEDICARE, MEDICAID ==
[2024-09-10] VITALS (11 sets, daily range): BP systolic 117–148; BP diastolic 74–94
[~2024-09-10] VITALS: Ht 167.6 cm; Wt 109.0 kg
[2024-09-10] MEDS ORDERED: SODIUM CHLORIDE 0.9% 1,000 ML IV STA (05:15)
[2024-09-10] MEDS ORDERED: LEVALBUTEROL HCL 1.25 MG/3 ML VIAL NEB ONE (05:20)
[2024-09-10] MEDS ORDERED: MAGNESIUM SULFATE HEPTAHYDRATE 50 ML IV ONE (05:20)
[2024-09-10] MEDS ORDERED: EPINEPHrine HCL 1 MG/ML AMP IM ONE (05:20)
[2024-09-10 05:40] LABS: BASO% 0.3 % (0-3); EOS% 10.1 % (0-8); HEMATOCRIT 40.1 % (37.0-47.0); HEMOGLOBIN 12.6 g/dl (12.0-16.0); IMMATURE GRANULOCYTES 0.1 % (0.0-5.0); LYMPH% 16.5 % (15-41); MEAN CELL VOLUME 93.3 fL CALC (80.0-100.0); MEAN CORPUSCULAR HGB 29.3 pG CALC (26.0-32.0); MEAN CORPUSCULAR HGB CONC 31.4 g/dL CAL (32.0-36.0); MONO% 5.7 % (2-13); NEUT# 12.11 thou/uL (2.00-7.15); NEUT% 67.3 % (42-76); RED BLOOD COUNT 4.3 mill/uL (4.20-5.60); RED CELL DISTRI WIDTH 12.8 % (11.5-15.5)
[2024-09-10] MEDS ORDERED: FLUTICASONE/SALMETEROL 250 MCG/50 MCG PER DOSE INH IN ONE (05:40)
[2024-09-10 05:52] LABS: HCG SERUM/URINE (NEG/POS) NEGATIVE (NEGATIVE)
[2024-09-10 05:55] LABS: ALBUMIN 3.9 g/dL (3.2-5.0); BILIRUBIN, TOTAL 0.3 mg/dL (0.02-1.3); CREATININE 0.7 mg/dL (0.5-1.0); POTASSIUM 3.3 mmol/l (3.5-5.1); TOTAL PROTEIN 7.7 g/dL (6.3-8.2)
[2024-09-10] MEDS ORDERED: IPRATROPIUM-Albuterol 0.5MG-2.5MG/3 ML NEB ONE (07:15)
[2024-09-10] MEDS ORDERED: ALBUTEROL SULFATE 2.5 MG VIAL IN ONE ×2 (07:15)
[2024-09-10] MEDS ORDERED: PREDNISONE50 MG PO (08:56)
[2024-09-10] MEDS ORDERED: SYMBICORT1 AE1 IN (08:56)
[2024-09-10] MEDS ORDERED: PROVENTIL0.083 % IN (08:56)
[2024-09-10] MEDS ORDERED: VENTOLIN HFA108 MCG IN (08:56)
[2024-09-10 09:04] LABS: URINE BILIRUBIN - DIPSTICK Negative (NEGATIVE); URINE BLOOD DIPSTICK Negative (NEGATIVE); URINE COLOR Yellow; URINE GLUCOSE - DIPSTICK Negative (NEGATIVE); URINE KETONE Negative (NEGATIVE); URINE LEUK ESTERASE Trace (NEGATIVE); URINE NITRITE - DIPSTICK Negative (Negative); URINE PROTEIN - DIPSTICK Negative (NEG-TRACE); URINE SPECIFIC GRAVITY 1.025; URINE UROBILINOGEN - DIPSTICK 0.2 E.U./dL (0.2)
== END 2024-09-10 09:15 | disposition home or self-care (01) ==
LOC: ED 05:03
PROVIDERS: Family Medicine
DX: J45.901 Unspecified asthma with (acute) exacerbation (principal); F17.210 Nicotine dependence, cigarettes, uncomplicated; T48.6X6A Underdosing of antiasthmatics, initial encounter; Z91.128 Patient's intentional underdosing of medication regimen for other reason; Z20.822 Contact with and (suspected) exposure to COVID-19
CPT/HCPCS: J3475